=== PATIENT | female | born 1960 | race Caucasian/White ===

== ENCOUNTER 2020-04-13 19:56 | Inpatient (IN) | payer SELFPAY ==
[~2020-04-13] VITALS: Ht 165.1 cm; Wt 66.0 kg
[2020-04-13 20:32] LABS: BASOPHILS % 0.5 % (0.0-1.0); EOSINOPHILS # (AUTO) 0.1 (0.0-0.4); EOSINOPHILS % 1.1 % (0.0-6.0); HEMATOCRIT 26.2 % (34.2-44.1); HEMOGLOBIN 8.6 g/dL (12.0-16.0); LYMPHOCYTES # (AUTO) 0.8 (1.0-3.2); LYMPHOCYTES % 11.1 % (18.0-39.1); MEAN CORPUSCULAR HEMOGLOBIN 34.5 pg (28-32); MEAN CORPUSCULAR HGB CONC 32.8 g/dL (31-35); MEAN CORPUSCULAR VOLUME 105.2 fL (81-99); MONOCYTES # (AUTO) 0.5 (0.2-0.8); NEUTROPHILS % 79.8 % (38.7-80.0); PLATELET COUNT 476 x10e3/uL (140-360); RED BLOOD COUNT 2.49 x10e6/uL (3.6-5.1); RED CELL DISTRIBUTION WIDTH 15.4 % (11.7-14.4)
--- NOTE | 2020-04-13 20:34 | Emergency Department Note ---
History of Present Illnes History of Present Illness Chief Complaint: Extremity Trauma/Pain History of Present Illness This is a 59 year old female presents by way of EMS complaining of Long due to bilateral lower extremity weakness that started last night. Describes it from his when she stands up her legs give out and she just collapses to the floor. Patient does report having an episode where she "fainted 4 days ago and hit her head. At that time did not follow up or seek medical attention.. 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 MGR: IV, EKG Credit Compliance Officer Required: No Onset (how long ago): day(s) (1) Location: BILAREAL LOWER EXTREMITIES Quality: WEAKNESS Radiation: Reports non-radiation Severity: moderate Onset quality: sudden Duration (how long): day(s) (1) Timing of current episode: constant Progression: unchanged Chronicity: new Context: Reports trauma/injury (SYNCOPAL EPISODE 4 DAYS AGO AND HIT HER HEAD); Denies recent illness, Denies recent surgery Relieving factors: none Exacerbating factors: none Associated symptoms: Reports denies other symptoms Treatments prior to arrival: none Past Medical/Family History Physician Review I have reviewed the patient's past medical and family history. Any updates have been documented here. Past Medical History Recent Fever: No Clinical Suspicion of Infectio: No New/Unexplained Change in Ment: No Past Medical History: Hypertension, COPD Past Surgical History: Tubal Ligation Social History Smoking Cessation: Current every day smoker Alcohol Use: Occasional Any Illegal Drug Use: No Physically hurt or threatened: No Family History Family history of heart diseas: No Other family history HTN Review of Systems Review of Systems Constitutional: Reports as per HPI EENTM: Reports no symptoms Cardiovascular: Reports no symptoms Respiratory: Reports no symptoms Gastrointestinal: Reports no symptoms Genitourinary: Reports no symptoms Musculoskeletal: Reports as per HPI Integumentary: Reports no symptoms Neurological: Reports as per HPI Psychological: Reports no symptoms Endocrine: Reports no symptoms Hematological/Lymphatic: Reports no symptoms Physical Exam Related Data Allergies: Coded Allergies: No Known Allergies (Unverified , 04/13/20) Triage Vital Signs Vital Signs Date Time Temp Pulse Resp B/P (MAP) Pulse Ox O2 Delivery O2 Flow Rate FiO2 04/13/20 20:00 98.3 94 18 133/81 100 Room Air Vital signs reviewed: Yes Physical Exam CONSTITUTIONAL Constitutional: Present well-developed, Present well-nourished HENT Patient has contusion to left forehead and left infraorbital area likely from syncopal episode that occurred 4 days ago bruising does appear old. HENT: Present normocephalic, Present oropharynx clear/moist, Present nose normal HENT L/R: Present left TM normal, Present right TM normal, Present left ext ear normal, Present right ext ear normal EYES Eyes: Reports PERRL, Reports conjunctivae normal NECK Neck: Present ROM normal PULMONARY Pulmonary: Present effort normal, Present breath sounds normal CARDIOVASCULAR Cardiovascular: Present regular rhythm, Present heart sounds normal, Present capillary refill normal, Present normal rate GASTROINTESTINAL Abdominal: Present soft, Present nontender, Present bowel sounds normal GENITOURINARY Genitourinary: Present exam deferred SKIN Skin: Present warm, Present dry MUSCULOSKELETAL Patient with full range of motion to both lower extremities however does have weakness to bilateral extremities when asked to lift legs off the bed she lifts them up and is able to only keep them off the bed for 2 seconds before the fall back to the bed. Exam is the same for both lower extremities. Of note patient also appears to have gout of the left great toe. Pulses intact bilateral. Sensation intact bilateral. No tenderness to lower back hips or pelvis. Musculoskeletal: Present ROM normal NEUROLOGICAL Neurological: Present alert, Present oriented x 3, Present no gross motor or sensory deficits, Present weakness (BILATERAL LOWER EXTTREMITIES) PSYCHOLOGICAL Psychological: Present mood/affect normal, Present judgement normal Results Laboratory Laboratory Laboratory Tests Test 04/13/20 21:27 04/13/20 20:22 Urine Color Yellow (YELLOW) Urine Clarity Sl cloudy (CLEAR) Urine pH 6 (5 - 7) Urine Specific [place] 1.010 (1.010-1.025) Urine Protein Negative (NEGATIVE) Urine Glucose (UA) Negative (NEGATIVE) Urine Ketones Negative (NEGATIVE) Urine Blood Moderate (NEGATIVE) Urine Nitrite Negative (NEGATIVE) Urine Bilirubin Negative (NEGATIVE) Urine Urobilinogen 0.2 mg/dL (0.2 - 1) Urine Leukocyte Esterase Trace (NEGATIVE) Urine RBC 6-10 /HPF (0-5) Urine WBC 0-5 /HPF (0-5) Urine Epithelial Cells None /LPF (NONE) Urine Bacteria Many /HPF (NONE) White Blood Count 7.57 x10e3/uL (4.8-10.8) Red Blood Count 2.49 x10e6/uL (3.6-5.1) Hemoglobin 8.6 g/dL (12.0-16.0) Hematocrit 26.2 % (34.2-44.1) Mean Corpuscular Volume 105.2 fL (81-99) Mean Corpuscular Hemoglobin 34.5 pg (28-32) Mean Corpuscular Hemoglobin Concent 32.8 g/dL (31-35) Red Cell Distribution Width 15.4 % (11.7-14.4) Platelet Count 476 x10e3/uL (140-360) Neutrophils (%) (Auto) 79.8 % (38.7-80.0) Lymphocytes (%) (Auto) 11.1 % (18.0-39.1) Monocytes (%) (Auto) 7.0 % (4.4-11.3) Eosinophils (%) (Auto) 1.1 % (0.0-6.0) Basophils (%) (Auto) 0.5 % (0.0-1.0) Neutrophils # (Auto) 6.0 (2.1-6.9) Lymphocytes # (Auto) 0.8 (1.0-3.2) Monocytes # (Auto) 0.5 (0.2-0.8) Eosinophils # (Auto) 0.1 (0.0-0.4) Basophils # (Auto) 0.0 (0.0-0.1) Absolute Immature Granulocyte (auto 0.04 x10e3/uL (0-0.1) Sodium Level 140 mmol/L (136-145) Potassium Level 1.4 mmol/L (3.5-5.1) Chloride Level 93 mmol/L (98-107) Carbon Dioxide Level 19 mmol/L (22-29) Anion Gap 29.4 mmol/L (8-16) Blood Urea Nitrogen 7 mg/dL (7-26) Creatinine 0.83 mg/dL (0.57-1.11) Estimat Glomerular Filtration Rate > 60 ML/MIN (60-) BUN/Creatinine Ratio 8 (6-25) Glucose Level 105 mg/dL (74-118) Calcium Level 8.0 mg/dL (8.4-10.2) Total Bilirubin 0.3 mg/dL (0.2-1.2) Aspartate Amino Transf (AST/SGOT) 56 IU/L (5-34) Alanine Aminotransferase (ALT/SGPT) 26 IU/L (0-55) Alkaline Phosphatase 176 IU/L (40-150) Creatine Kinase 900 IU/L (29-168) Creatine Kinase MB 6.20 ng/mL (0-5.0) Troponin I 0.030 ng/mL (0-0.300) Total Protein 5.6 g/dL (6.5-8.1) Albumin 2.7 g/dL (3.5-5.0) Globulin 2.9 g/dL (2.3-3.5) Albumin/Globulin Ratio 0.9 (0.8-2.0) Lab results reviewed: Yes Imaging Imaging results reviewed: Yes Impressions Procedure: [id number] DX/CHEST SINGLE (PORTABLE) Exam Date: 04/13/20 Exam Time: 2029 REPORT STATUS: Signed EXAMINATION: CHEST SINGLE (PORTABLE) INDICATION: Weakness. COMPARISON: None FINDINGS: TUBES and LINES: None. LUNGS: Normal lung volumes. Lungs are clear. No consolidations. PLEURA: No pleural effusion or pneumothorax. HEART AND MEDIASTINUM: The cardiomediastinal silhouette is unremarkable. BONES AND SOFT TISSUES: No acute osseous lesion. Soft tissues are unremarkable. UPPER ABDOMEN: No free air under the diaphragm. IMPRESSION: No acute thoracic radiographic abnormality. Signed by: Giulia Taylor MD on 04/13/2020 9:27 PM Dictated By: GIULIA TAYLOR MD 26 Transcribed By: LUIS CARLOS on 04/13/202126 COPY TO: CONSUELO MUJICA MD~ Procedure: [id number] CT/CT CERVICAL SPINE WO Exam Date: 04/13/20 Exam Time: 2029 REPORT STATUS: Signed History: Status post fall, lower extremity weakness. Comparison studies: None Technique: Axial images were obtained through the cervical region.. Coronal and sagittal images reconstructed from the axial data. Dose modulation, iterative reconstruction, and/or weight based adjustment of the mA/kV was utilized to reduce the radiation dose to as low as reasonably achievable. Intravenous contrast: None Findings: Fractures: None. Soft tissue injuries: None. Atlantoaxial articulation: Intact. Alignment: Normal lordosis. No scoliosis. No subluxation. Cervicomedullary junction: No abnormalities. The foramen magnum is patent. Soft tissues: No abnormalities. Vertebrae: No fractures, infection or neoplasm. Degenerative changes: C3-C4: Mild degenerative disc disease. Mild left foraminal stenosis due to facet and uncovertebral arthrosis. C4-C5: Mild degenerative disc disease and endplate changes. Posterior disc osteophyte complex without significant canal stenosis. Mild left foraminal stenosis due to facet and uncovertebral arthrosis. C5-C6: Mild degenerative disc disease, with endplate sclerosis and subchondral cyst along the inferior endplate of C5. Posterior disc osteophyte complex without significant canal stenosis. Mild left foraminal stenosis due to facet and uncovertebral arthrosis. IMPRESSION: 1. No acute cervical spine fracture or dislocation. 2. Ligament, spinal cord and or vascular abnormalities cannot be excluded on the basis of this examination. 3. Mild cervical spondylosis as detailed above. Signed by: Dr. Ivet Hernandez M.D. on 04/13/2020 9:12 PM Dictated By: IVET HERNANDEZ MD 11 Transcribed By: LUIS CARLOS on 04/13/202111 COPY TO: CONSUELO MUJICA MD~ EXAMINATION: Head CT without contrast. HISTORY:Bilateral lower extremity weakness, fall 4 days ago. COMPARISON:None. TECHNIQUE: Multidetector axial images were obtained from the foramen magnum to the vertex without contrast. The images were reconstructed using brain and bone algorithms. Thin section brain images were reformatted into coronal and sagittal planes. Dose modulation, iterative reconstruction, and/or weight based adjustment of the mA/kV was utilized to reduce the radiation dose to as low as reasonably achievable. Intravenous contrast: None IMAGE QUALITY: Suboptimal evaluation due to motion related artifacts. FINDINGS: Skull/scalp: Mild left periorbital soft tissue edema. No acute depressed or displaced calvarial fracture. No lytic or blastic. lesions. No surgical changes. Parenchyma: Suboptimal evaluation due to motion artifacts, despite the limitation no gross acute hemorrhage, mass or acute major vascular territorial infarct. Arteries: No density suggestive of thrombosis. Mild atherosclerotic calcification in bilateral carotid siphon. Dural sinuses: No abnormal density suggestive of thrombosis. Ventricles: No hydrocephalus or displacement. Extra-axial spaces: No abnormal density. Brain volume: Mild generalized cerebral volume loss. Craniocervical junction: No mass, Chiari malformation, or basilar invagination. Sella: No mass. Paranasal/mastoid sinuses: Partial opacification of left mastoid air cells. IMPRESSION: 1. Mild left periorbital soft tissue edema. No acute calvarial fracture. 2. Suboptimal evaluation due to motion artifacts, despite the limitation no gross acute intracranial abnormality. 3. Mild generalized cerebral volume loss. Signed by: Dr. Ivet Hernandez M.D. on 04/13/2020 9:05 PM Dictated By: IVET HERNANDEZ MD 04 Transcribed By: LUIS CARLOS on 04/13/202104 COPY TO: CONSUELO MUJICA MD~ Procedures 12 Lead ECG Interpretation ECG Interpretation : ECG: ECG 1 Credit Compliance Officer: Interpreted by ED physician Date: Apr 13, 2020 Time: 21:01 Rhythm: sinus rhythm Rate: normal BPM: 89 QRS axis: normal ST segments normal: No (depression in leads, II,III, AVF, V3,V4,V5, V5,V6) T waves normal: No (non specific changes) Clinical Impression: abnormal ECG Assessment & Plan Medical Decision Making MDM Patient presents with weakness to bilateral reduction medicines last night which states she collapses when she tries to stand up because her legs give out. Patient had a fainting episode 4 days ago when she struck her head and did not seek medical attention. CT brain, CT cervical spine, chest x-ray, UA, CBC, CMP, cardiac enzymes ordered to eval for intracranial abnormality, fractures, UTI, pneumonia, electrolyte abnormality, leukocytosis, anemia PT FOUND TO HAVE SEVERE HYPOKALEMIA KCL 40 MEQ PO ORDERED K RIDER 20 MEQ TIMES THREE IV ORDERED PT ALSO WITH ELEVATED CK OF 900 MAY HAVE A COMPONENT OF RHABDOMYOLYSIS WELL FROM FALL ASSOCIATED WITH HER EPISODE OF SYNCOPE 4 DAYS AGO 2249 I HAVE BEEN TRYING TO GET A HOLD OF DR Duane NÚÑEZ(PT'S PCP/RADIO/TV TECHNICIAN SINCE 2215, HE HAS NOT RETURNED CALL. I SPOKE WITH DR OROSCO( PCP ON BACK UP CALL) HE STATES WILL ADMIT PT AND ASKE I PUT A CONSULT TO DR Duane NÚÑZE. DR OROSCO STATES HE WILL SPEAK WITH DR Duane NÚÑEZ IN AM IF HE DOES NOT CALL ME BACK TONIGHT Assessment & Plan Final Impression: (1) Hypokalemia (2) Weakness (3) Syncope (4) Contusion of head Depart Disposition: ADMITTED Last Vital Signs Date Time Temp Pulse Resp B/P (MAP) Pulse Ox O2 Delivery O2 Flow Rate FiO2 04/13/20 20:00 98.3 94 18 133/81 100 Room Air CONSUELO MUJICA MD Apr 13, 2020 20:34
[2020-04-13 20:52] LABS: ALANINE AMINOTRANSFERASE 26 IU/L (0-55); ALBUMIN 2.7 g/dL (3.5-5.0); ALBUMIN/GLOBULIN RATIO 0.9 (0.8-2.0); ALKALINE PHOSPHATASE 176 IU/L (40-150); ANION GAP 29.4 mmol/L (8-16); BLOOD UREA NITROGEN 7 mg/dL (7-26); BUN/CREATININE RATIO 8 (6-25); CARBON DIOXIDE 19 mmol/L (22-29); CHLORIDE 93 mmol/L (98-107); CREATINE KINASE 900 IU/L (29-168); CREATININE, SERUM 0.83 mg/dL (0.57-1.11); EST GLOMERULAR FILTRATION RATE > 60 ML/MIN (60-); GLUCOSE 105 mg/dL (74-118); SODIUM 140 mmol/L (136-145)
[2020-04-13 20:55] LABS: POTASSIUM 1.4 mmol/L (3.5-5.1)
[2020-04-13] MEDS ORDERED: POTASSIUM CHLORIDE 20MEQ/100ML 100 ML IV STA ×3 (20:55)
[2020-04-13] MEDS ORDERED: POTASSIUM CHLORIDE 20 MEQ TAB CR PO STA (20:55)
--- NOTE | 2020-04-13 21:09 | Diagnostic Imaging Report ---
EXAMINATION: Head CT without contrast. HISTORY:Bilateral lower extremity weakness, fall 4 days ago. COMPARISON:None. TECHNIQUE: Multidetector axial images were obtained from the foramen magnum to the vertex without contrast. The images were reconstructed using brain and bone algorithms. Thin section brain images were reformatted into coronal and sagittal planes. Dose modulation, iterative reconstruction, and/or weight based adjustment of the mA/kV was utilized to reduce the radiation dose to as low as reasonably achievable. Intravenous contrast: None IMAGE QUALITY: Suboptimal evaluation due to motion related artifacts. FINDINGS: Skull/scalp: Mild left periorbital soft tissue edema. No acute depressed or displaced calvarial fracture. No lytic or blastic. lesions. No surgical changes. Parenchyma: Suboptimal evaluation due to motion artifacts, despite the limitation no gross acute hemorrhage, mass or acute major vascular territorial infarct. Arteries: No density suggestive of thrombosis. Mild atherosclerotic calcification in bilateral carotid siphon. Dural sinuses: No abnormal density suggestive of thrombosis. Ventricles: No hydrocephalus or displacement. Extra-axial spaces: No abnormal density. Brain volume: Mild generalized cerebral volume loss. Craniocervical junction: No mass, Chiari malformation, or basilar invagination. Sella: No mass. Paranasal/mastoid sinuses: Partial opacification of left mastoid air cells. IMPRESSION: 1. Mild left periorbital soft tissue edema. No acute calvarial fracture. 2. Suboptimal evaluation due to motion artifacts, despite the limitation no gross acute intracranial abnormality. 3. Mild generalized cerebral volume loss. Signed by: Dr. Ivet Lawrence M.D. on 04/13/2020 9:05 PM
[2020-04-13] MEDS ORDERED: SODIUM CHLORIDE 0.9% 500ML 500 ML IV ONE (21:15)
--- NOTE | 2020-04-13 21:15 | Diagnostic Imaging Report ---
History: Status post fall, lower extremity weakness. Comparison studies: None Technique: Axial images were obtained through the cervical region.. Coronal and sagittal images reconstructed from the axial data. Dose modulation, iterative reconstruction, and/or weight based adjustment of the mA/kV was utilized to reduce the radiation dose to as low as reasonably achievable. Intravenous contrast: None Findings: Fractures: None. Soft tissue injuries: None. Atlantoaxial articulation: Intact. Alignment: Normal lordosis. No scoliosis. No subluxation. Cervicomedullary junction: No abnormalities. The foramen magnum is patent. Soft tissues: No abnormalities. Vertebrae: No fractures, infection or neoplasm. Degenerative changes: C3-C4: Mild degenerative disc disease. Mild left foraminal stenosis due to facet and uncovertebral arthrosis. C4-C5: Mild degenerative disc disease and endplate changes. Posterior disc osteophyte complex without significant canal stenosis. Mild left foraminal stenosis due to facet and uncovertebral arthrosis. C5-C6: Mild degenerative disc disease, with endplate sclerosis and subchondral cyst along the inferior endplate of C5. Posterior disc osteophyte complex without significant canal stenosis. Mild left foraminal stenosis due to facet and uncovertebral arthrosis. IMPRESSION: 1. No acute cervical spine fracture or dislocation. 2. Ligament, spinal cord and or vascular abnormalities cannot be excluded on the basis of this examination. 3. Mild cervical spondylosis as detailed above. Signed by: Dr. Ivet Lawrence M.D. on 04/13/2020 9:12 PM
[2020-04-13] MEDS ORDERED: SODIUM CHLORIDE 0.9% 1000ML 1,000 ML ONE (21:17)
--- NOTE | 2020-04-13 21:31 | Diagnostic Imaging Report ---
EXAMINATION: CHEST SINGLE (PORTABLE) INDICATION: Weakness. COMPARISON: None FINDINGS: TUBES and LINES: None. LUNGS: Normal lung volumes. Lungs are clear. No consolidations. PLEURA: No pleural effusion or pneumothorax. HEART AND MEDIASTINUM: The cardiomediastinal silhouette is unremarkable. BONES AND SOFT TISSUES: No acute osseous lesion. Soft tissues are unremarkable. UPPER ABDOMEN: No free air under the diaphragm. IMPRESSION: No acute thoracic radiographic abnormality. Signed by: Kierra León MD on 04/13/2020 9:27 PM
[2020-04-13 21:42] LABS: BILIRUBIN,URINE NEGATIVE (NEGATIVE); CLARITY,URINE SL CLOUDY (CLEAR); COLOR,URINE YELLOW (YELLOW); KETONES,URINE NEGATIVE (NEGATIVE); LEUKOCYTE ESTERASE ,URINE TRACE (NEGATIVE); NITRITE,URINE NEGATIVE (NEGATIVE); PROTEIN,URINE DIPSTICK NEGATIVE (NEGATIVE); URINE UROBILINOGEN 0.2 mg/dL (0.2 - 1)
[2020-04-13 21:56] LABS: BACTERIA,URINE MANY /HPF; WBC,URINE (MAN) 0-5 /HPF (0-5)
--- OUTSIDE RECORDS SUMMARY | 2020-04-13 22:06 | XMS REPORT | Continuity of Care Document ---
Author Author [facility] Organization [facility] Address [address] [place] [address] Phone Unavailable Care Team Providers Care Nurse Tech Name Role Phone Duane MUJICAphyjuventino Unavailable Payers Payer Name Policy Type Policy Number Effective Date Expiration Date S ource Problems This patient has no known problems. Allergies, Adverse Reactions, Alerts Allergy Name Allergy Type Status Severity Reaction(s) Onset Date Inacti ve Date Treating Clinician Comments Source No Known Allergies DA Active U 2018-07-12 00:00:00 [facility] No Known Allergies DA Active U 2014-02-21 00:00:00 [facility] Medications This patient has no known medications. Procedures This patient has no known procedures. Results Test Description Test Time Test Comments Results Result Comments Source CHEST SINGLE (PORTABLE) 2020-04-13 21:10:00 [facility] [address] [place], [place] [address] Patient Name: PHIL BAPTISTE MR #: [id number] : 1960 Age/Sex: 59/F Req #: [id number] Adm Physician: Ordered by: CONSUELO MUJICA MD Report #: [id number] Location: ER Room/Bed: Procedure: [id number] DX/CHEST SINGLE (PORTABLE) Exam Date: 04/13/20 Exam Time: 2029 REPORT STATUS: Signed EXAMINATION: CHEST SINGLE (PORTABLE) INDICATION: Weakness. COMPARISON: None FINDINGS: TUBES and LINES: None. LUNGS: Normal lung volumes. Lungs are clear. No consolidations. PLEURA: No pleural effusion or pneumothorax. HEART AND MEDIASTINUM: The cardiomediastinal silhouette is unremarkable. BONES AND SOFT TISSUES: No acute osseous lesion. Soft tissues are unremarkable. UPPER ABDOMEN: No free air under the diaphragm. IMPRESSION: No acute thoracic radiographic abnormality. Signed by: Giulia Taylor MD on 04/13/2020 9:27 PM Dictated By: GIULIA TAYLOR MD 26 Transcribed By: LUIS CARLOS on 04/13/202126 COPY TO: CONSUELO MUJICA MD CT CERVICAL SPINE WO 2020-04-13 21:06:00 [place] [address] Patient Name: PHIL BAPTISTE MR #: [id number] : 1960 Age/Sex: 59/F Req #: [id number] Adm Physician: Ordered by: CONSUELO MUJICA MD Report #: [id number] Location: ER Room/Bed: Procedure: [id number] CT/CT CERVICAL SPINE WO Exam Date: 04/13/20 Exam Time: 2029 REPORT STATUS: Signed History: Status post fall, lower extremity weakness. Comparison studies: None Technique: Axial images were obtained through the cervical region.. Coronal and sagittal images reconstructed from the axial data. Dose modulation, iterative reconstruction, and/or weight based adjustment of the mA/kV was utilized to reduce the radiation dose to as low as reasonably achievable. Intravenous contrast: None Findings: Fractures: None. Soft tissue injuries: None. Atlantoaxial articulation: Intact. Alignment: Normal lordosis. No scoliosis. No subluxation. Cervicomedullary junction: No abnormalities. The foramen magnum is patent. Soft tissues: No abnormalities. Vertebrae: No fractures, infection or neoplasm. Degenerative changes: C3-C4: Mild degenerative disc disease. Mild left foraminal stenosis due to facet and uncovertebral arthrosis. C4-C5: Mild degenerative disc disease and endplate changes. Posterior disc osteophyte complex without significant canal stenosis. Mild left foraminal stenosis due to facet and uncovertebral arthrosis. C5- C6: Mild degenerative disc disease, with endplate sclerosis and subchondral cyst along the inferior endplate of C5. Posterior disc osteophyte complex without significant canal stenosis. Mild left foraminal stenosis due to facet and uncovertebral arthrosis. IMPRESSION: 1. No acute cervical spine fracture or dislocation. 2. Ligament, spinal cord and or vascular abnormalities cannot be excluded on the basis of this examination. 3. Mild cervical spondylosis as detailed above. Signed by: Dr. Ivet Hernandez M.D. on 04/13/2020 9:12 PM Dictated By: IVET HERNANDEZ MD 11 Transcribed By: LUIS CARLOS on 04/13/202111 COPY TO: CONSUELO MUJICA MD CT BRAIN WO 2020-04-13 21:00:00 [place] [address] Patient Name: PHIL BAPTISTE MR #: [id number] : 1960 Age/Sex: 59/F Req #: [id number] Adm Physician: Ordered by: CONSUELO MUJICA MD Report #: [id number] Location: ER Room/Bed: Procedure: [id number] CT/CT BRAIN WO Exam Date: 04/13/20 Exam Time: 2029 REPORT STATUS: Signed EXAMINATION: Head CT without contrast. HISTORY:Bilateral lower extremity weakness, fall 4 days ago. COMPARISON:None. TECHNIQUE: Multidetector axial images were obtained from the foramen magnum to the vertex without contrast. The images were reconstructed using brain and bone algorithms. Thin section brain images were reformatted into coronal and sagittal planes. Dose modulation, iterative reconstruction, and/or weight based adjustment of the mA/kV was utilized to reduce the radiation dose to as low as reasonably achievable. Intravenous contrast: None IMAGE QUALITY: Suboptimal evaluation due to motion related artifacts. FINDINGS: Skull/scalp: Mild left periorbital soft tissue edema. No acute depressed or displaced calvarial fracture. No lytic or blastic. lesions. No surgical changes. Parenchyma: Suboptimal evaluation due to motion artifacts, despite the limitation no gross acute hemorrhage, mass or acute major vascular territorial infarct. Arteries: No density suggestive of thrombosis. Mild atherosclerotic calcification in bilateral carotid siphon. Dural sinuses: No abnormal density suggestive of thrombosis. Ventricles: No hydrocephalus or displacement. Extra-axial spaces: No abnormal density. Brain volume: Mild generalized cerebral volume loss. Craniocervical junction: No mass, Chiari malformation, or basilar invagination. Sella: No mass. Paranasal/mastoid sinuses: Partial opacification of left mastoid air cells. IMPRESSION: 1. Mild left periorbital soft tissue edema. No acute calvarial fracture. 2. Suboptimal evaluation due to motion artifacts, despite the limitation no gross acute intracranial abnormality. 3. Mild generalized cerebral volume loss. Signed by: Dr. Ivet Hernandez M.D. on 04/13/2020 9:05 PM Dictated By: IVET HERNANDEZ MD 04 Transcribed By: LUIS CARLOS on 04/13/202104 COPY TO: CONSUELO MUJICA MD
[2020-04-13] MEDS ORDERED: LORAZEPAM INJ 2 MG/ML VIAL IV ONE ×2 (22:15)
[2020-04-13] MEDS ORDERED: ONDANSETRON HCL INJ 2MG/ML 2ML 2 MG/ML VIAL IV PRN (23:00)
--- OUTSIDE RECORDS SUMMARY | 2020-04-13 23:11 | XMS REPORT | Continuity of Care Document ---
Author Author [facility] Organization [facility] Address [address] [place] [address] Phone Unavailable Care Team Providers Care Animal Tech Name Role Phone Duane MUJICAphyjuventino Unavailable Payers Payer Name Policy Type Policy Number Effective Date Expiration Date S ource Problems This patient has no known problems. Allergies, Adverse Reactions, Alerts Allergy Name Allergy Type Status Severity Reaction(s) Onset Date Inacti ve Date Treating Clinician Comments Source No Known Allergies DA Active U 2018-07-12 00:00:00 [facility] No Known Allergies DA Active U 2014-02-21 00:00:00 [facility] Medications This patient has no known medications. Procedures This patient has no known procedures. Results Test Description Test Time Test Comments Results Result Comments Source CHEST SINGLE (PORTABLE) 2020-04-13 21:10:00 [facility] [address], [place] [address] Patient Name: PHIL BAPTISTE MR #: [id number] : 1960 Age/Sex: 59/F Req #: [id number] Adm Physician: Ordered by: CONSUELO MUJICA MD Report #: [id number] Location: ER Room/Bed: Procedure: [id number] DX/CHEST SINGLE (PORTABLE) Exam Date: 04/13/20 Exam [...] MD CT CERVICAL SPINE WO 2020-04-13 21:06:00 [place] [address] Patient Name: PHIL BAPTISTE MR #: [id number] : 1960 Age/Sex: 59/F Req #: [id number] Adm Physician: Ordered by: CONSUELO MUJICA MD Report #: [id number] Location: ER Room/Bed: Procedure: [id number] CT/CT CERVICAL SPINE WO Exam Date: 04/13/20 [...] MUJICA MD CT BRAIN WO 2020-04-13 21:00:00 [place] [address] Patient Name: PHIL BAPTISTE MR #: [id number] : 1960 Age/Sex: 59/F Req #: [id number] Adm Physician: Ordered by: CONSUELO MUJICA MD Report #: [id number] Location: ER Room/Bed: Procedure: [id number] CT/CT BRAIN WO Exam Date: 04/13/20 Exam [...]
--- NOTE | 2020-04-13 23:13 | NUR ---
Received report from Case (ER nurse) about patient's information. Case also mentioned that ER doctor (Dr. Arias) has just spoken with Dr. Laquita Newman about the consult (re: COPD) to see patient in AM (04/14/20).
[2020-04-13] MEDS ORDERED: TEMAZEPAM 7.5 MG CAP PO PRN (23:30)
[2020-04-13] MEDS ORDERED: POLYETHYLENE GLYCOL 3350 17 GM PACK PO PRN (23:30)
[2020-04-14] VITALS (11 sets, daily range): BP systolic 129–155; BP diastolic 75–99
--- NOTE | 2020-04-14 00:30 | NUR ---
Patient arrived to the unit via stretcher as a new admit from ER to Rm 288. Patient alert and oriented x3. Admitted with contusion of head, hypokalemia, syncope and weakness. Patient admits feeling weakness on both legs especially on the left leg. Swelling on medial bone of left big toe (Navicular bone) noted and tender to touch. Bruises on left cheek of face and bruise under left eye. Healed laceration on forehead noted. Patient on bedrest. Pt to be receiving total of 3 runs of 20meq KCL IV as ordered. Hemant Fu on the floor aware pt has arrived.
[2020-04-14] MEDS: POTASSIUM CHLORIDE 20MEQ/100ML 100 ML IV SCH ×2 (01:30→04:30)
[2020-04-14] MEDS ORDERED: POTASSIUM CHLORIDE IV ONE ×2 (02:30→06:00)
[2020-04-14] MEDS ORDERED: DEXTROSE 5% IV ONE ×2 (02:30→06:00)
[2020-04-14] MEDS ORDERED: SODIUM BICARBONATE 8.4% IV ONE ×2 (02:30→06:00)
[2020-04-14] MEDS ORDERED: LISINOPRIL-HCT1 EACH PO (02:32)
[2020-04-14] MEDS ORDERED: SYMBICORT 80-10.2 GM INH (02:32)
[2020-04-14] MEDS ORDERED: ALBUTEROL0.63 MG/3 INH (02:32)
--- NOTE | 2020-04-14 02:45 | NUR ---
Verified with Hemant Fu ([employer]ION[employer]) about order for Orthostatic V/S and that patient unable to stand up at this time. Hemant mentioned to do orthostatic v/s q6h x3 only after she gets a chance to stand up with physical therapist today. Will pass information to incoming dayshift RN.
[2020-04-14] MEDS ORDERED: ALBUTEROL SULF 0.083% NEB SOLN 3 ML NEB INH PRN (03:15)
--- NOTE | 2020-04-14 06:55 | NUR ---
SBAR BEDSIDE REPORT RECEIVED FROM ZEHRA CASTRO, PM SHIFT. PT RECEIVED LYING IN BED IN NO ACUTE DISTRESS. PT IS ALERT/ORIENTED X3 AND IS ABLE TO MAKE NEEDS KNOWN. PT DENIES ANY NEEDS AT THIS TIME. PT WAS EDUCATED ON FALL RISK PRECAUTIONS AND USE OF CALL LIGHT. CALL LIGHT AND BELONGINGS NEARBY. WILL CONTINUE TO MONITOR.
[2020-04-14 07:59] LABS: BASOPHILS % 0.5 % (0.0-1.0); EOSINOPHILS # (AUTO) 0.1 (0.0-0.4); EOSINOPHILS % 1.3 % (0.0-6.0); HEMATOCRIT 24.3 % (34.2-44.1); HEMOGLOBIN 7.9 g/dL (12.0-16.0); LYMPHOCYTES # (AUTO) 0.8 (1.0-3.2); LYMPHOCYTES % 9.6 % (18.0-39.1); MEAN CORPUSCULAR HEMOGLOBIN 34.2 pg (28-32); MEAN CORPUSCULAR HGB CONC 32.5 g/dL (31-35); MEAN CORPUSCULAR VOLUME 105.2 fL (81-99); MONOCYTES # (AUTO) 0.6 (0.2-0.8); MONOCYTES % 7.5 % (4.4-11.3); NEUTROPHILS # (AUTO) 6.8 (2.1-6.9); NEUTROPHILS % 80.6 % (38.7-80.0); PLATELET COUNT 454 x10e3/uL (140-360); RED BLOOD COUNT 2.31 x10e6/uL (3.6-5.1); RED CELL DISTRIBUTION WIDTH 15.7 % (11.7-14.4)
[2020-04-14 08:21] LABS: ALANINE AMINOTRANSFERASE 27 IU/L (0-55); ALBUMIN 2.4 g/dL (3.5-5.0); ALBUMIN/GLOBULIN RATIO 0.9 (0.8-2.0); ALKALINE PHOSPHATASE 175 IU/L (40-150); ANION GAP 20.9 mmol/L (8-16); BLOOD UREA NITROGEN 5 mg/dL (7-26); BUN/CREATININE RATIO 7 (6-25); CALCIUM 7.3 mg/dL (8.4-10.2); CARBON DIOXIDE 27 mmol/L (22-29); CHLORIDE 96 mmol/L (98-107); CREATININE, SERUM 0.75 mg/dL (0.57-1.11); EST GLOMERULAR FILTRATION RATE > 60 ML/MIN (60-); GLUCOSE 121 mg/dL (74-118); SODIUM 142 mmol/L (136-145)
[2020-04-14 08:23] LABS: CHOL/HDL RATIO 2.6 (3.0-3.6); MAGNESIUM 1.8 MG/DL (1.3-2.1); PHOSPHORUS 2.6 MG/DL (2.3-4.7)
[2020-04-14 08:30] LABS: POTASSIUM 1.9 mmol/L (3.5-5.1)
--- NOTE | 2020-04-14 08:33 | NUR ---
CRITICAL POTASSIUM = 1.9 RECEIVED FROM LAB. CALL PLACED TO DR. OROSCO. LEFT FOR RETURN CALL
[2020-04-14 08:43] LABS: THYROID STIMULATING HORMONE 0.206 uIU/mL (0.350-4.940)
[2020-04-14] MEDS: DOCUSATE SODIUM 100 MG CAP PO SCH ×2 (09:16→17:00)
[2020-04-14] MEDS: FAMOTIDINE 20 MG/2 ML VIAL IV SCH ×3 (09:17→17:30)
[2020-04-14] MEDS ORDERED: POTASSIUM CHLORIDE 20MEQ/100ML 200 ML IV ONE (09:30)
[2020-04-14] MEDS ORDERED: POTASSIUM CHLORIDE 20 MEQ TAB CR PO SCH ×2 (09:30→12:30)
[2020-04-14 10:24] LABS: FERRITIN 237.58 ng/mL (4.63-204.00)
[2020-04-14 10:29] LABS: PLATELET ESTIMATE SLIGHTLY INCREASED; PLATELET MORPHOLOGY COMMENT FEW EDTA CLUMPING; RBC MORPHOLOGY COMMENT NORMAL
[2020-04-14] MEDS: ALBUTEROL/IPRATROPIUM 3 ML NEB NEB SCH ×5 (12:51→23:00)
[2020-04-14] MEDS: BUDESONIDE/FORMOTEROL FUMARATE 80/4.5MCG 6.9 GM INH AEROSOL IH SCH ×2 (12:53→20:30)
[2020-04-14] MEDS: KCL 40MEQ/0.9% SOD CHL 1,000 ML IV ONE ×2 (13:00→15:39)
--- NOTE | 2020-04-14 13:39 | Consultation ---
DATE OF CONSULTATION: CHIEF COMPLAINT: Weakness in the legs and diarrhea for three months. HISTORY OF PRESENT ILLNESS: The patient is a 59-year-old woman. She has a history of COPD and uses Symbicort as well as rescue inhalers at home. She also takes lisinopril with hydrochlorothiazide for blood pressure. She reports diarrhea intermittently for the past three months. Apparently, she was also taking some [id number] remedies. Yesterday, she noticed progressive paresthesias and tingling in her lower extremities. She then had difficulty moving her right leg and her left leg. She came to the ER and was found to have a potassium of 1.4. She has received 60 mEq of IV potassium so far along with 80 mEq of p.o. Her last potassium was 1.9. She has reported some symptomatic improvement. PAST SURGICAL HISTORY: Noncontributory. PAST MEDICAL HISTORY: 1. COPD. 2. History of pneumonia in June of 2019. 3. Hypertension. 4. No prior kidney problems. SOCIAL HISTORY: The patient was a prior smoker. She is not an active drinker. ALLERGIES: NO KNOWN DRUG ALLERGIES. FAMILY HISTORY: Family history is noncontributory. REVIEW OF SYSTEMS: There is no headache or fever. She has no neck pain. She has trace has dyspnea on exertion, which is her baseline. She has no chest pain. She has no abdominal pain. She has no nausea or vomiting. She does have diarrhea intermittently for three months. She complains of weakness in both lower extremities that is improving. She also has pain in her left foot. PHYSICAL EXAMINATION: VITAL SIGNS: The blood pressure is 143/80 and the pulse is 91. Saturation is 96%. HEENT: No facial swelling or erythema. LYMPHATIC: No submandibular, cervical, or supraclavicular adenopathy. CARDIAC: Regular rate and rhythm with normal S1, S2. LUNGS: Auscultation of lungs shows clear breath sounds bilaterally. There is no wheezing. ABDOMEN: Soft, nontender. There is no rebound or guarding. EXTREMITIES: No leg edema. There is tenderness over the 1st metatarsophalangeal joint on the left foot. LABORATORY DATA: Potassium is 1.9 with a sodium of 142. The BUN to creatinine ratio is 7 to 0.75 and the carbon dioxide is 27, although the anion gap remains elevated. Her CPK is 1539. Her total protein is 5 and her albumin is 2.4. Her white blood cell count is 8.4, hemoglobin is 7.9 with an MCV of 105. The platelet count is 454 and her reticulocyte count is 3.4%. Her free T4 is 0.64. IMPRESSION: 1. Profound hypokalemia with paralysis. 2. Severe mixed metabolic and anion gap and non-anion gap acidosis. 3. Profound diarrhea with dehydration. 4. Tenderness over the 1st metatarsophalangeal joint, suggestive of possible gout. 5. Chronic obstructive pulmonary disease. 6. Macrocytic anemia. PLAN: 1. The patient is receiving IV potassium. 2. Nephrology consultation. 3. GI consultation regarding chronic diarrhea. 4. Hematology evaluation for macrocytic anemia. 5. TSH and serum cortisol. 6. Repeat electrolytes. Jack Newman MD [facility]/MODL /[id number]
[2020-04-14 13:52] LABS: ALANINE AMINOTRANSFERASE 28 IU/L (0-55); ALBUMIN 2.3 g/dL (3.5-5.0); ALBUMIN/GLOBULIN RATIO 0.9 (0.8-2.0); ALKALINE PHOSPHATASE 176 IU/L (40-150); ANION GAP 20.2 mmol/L (8-16); BLOOD UREA NITROGEN 5 mg/dL (7-26); BUN/CREATININE RATIO 7 (6-25); CALCIUM 7.1 mg/dL (8.4-10.2); CARBON DIOXIDE 27 mmol/L (22-29); CHLORIDE 95 mmol/L (98-107); CREATININE, SERUM 0.73 mg/dL (0.57-1.11); EST GLOMERULAR FILTRATION RATE > 60 ML/MIN (60-); GLUCOSE 152 mg/dL (74-118); SODIUM 140 mmol/L (136-145)
[2020-04-14] MEDS: THIAMINE HCL 100 MG TAB PO SCH (13:54)
[2020-04-14] MEDS: FOLIC ACID 1 MG TAB PO SCH (13:54)
[2020-04-14 13:55] LABS: POTASSIUM 2.2 mmol/L (3.5-5.1)
[2020-04-14 14:07] LABS: MAGNESIUM 1.7 MG/DL (1.3-2.1)
[2020-04-14] MEDS ORDERED: MAGNESIUM SULFATE 2GM/50ML 50 ML IV ONE (15:00)
[2020-04-14] MEDS ORDERED: METHYLPREDNISOLONE SOD SUCC 125 MG/2ML VIAL IV ONE (15:30)
[2020-04-14] MEDS ORDERED: POTASSIUM CHLORIDE 20 MEQ TAB CR PO ONE (15:30)
[2020-04-14] MEDS ORDERED: CALCIUM GLUCONATE 10% INJ 4.65 MEQ in SODIUM CHLORIDE 0.9% 50ML 50 ML IV ONE (16:00)
[2020-04-14] MEDS ORDERED: POTASSIUM PHOSPHATE 30 MM in SODIUM CHLORIDE 0.9% 250ML 250 ML IV ONE (17:00)
--- NOTE | 2020-04-14 18:36 | Consultation ---
DATE OF CONSULTATION: 04/14/2020 HISTORY OF PRESENT ILLNESS: A 59-year-old female, who apparently has had several weeks of nausea, vomiting, and diarrhea, predominantly diarrhea, not as much nausea, recently fell about a week ago and has bruised her left cheek. Renal has been consulted for severe electrolyte abnormalities, as labs initially showed a potassium level of 1.4. This was yesterday with a sodium of 140, bicarb 19, creatinine 0.8, calcium level was 8 there, albumin of 2.7, CK was 900. Troponin I was 0.030. Repeat, the patient was given potassium riders, started on IV bicarbonate. Most recent labs; sodium 140, potassium 2.2, bicarbonate 27, BUN 5, creatinine 0.7, has a glucose of 152, calcium 7.1, ionized calcium 1, phosphorus 2, magnesium 1.7, has a CK of 2117. TSH of 0.166. Urinalysis shows specific gravity of 1.010, pH 6. Urine microscopy; rbc 6-10, wbc's 0-5. The patient currently awake, alert. The patient's nurse is with me by her bedside. She has very labile mood. She is crying. She says she is afraid, as she is about to get a PICC line. She admits she has a history of depression, never been suicidal, never seen a psychiatrist. She has never seen anybody for her diarrhea. She sees Dr. Newman for her COPD. She denies any other medical issues. Denied any abdominal surgeries. Denies any CVAs. Denies any kidney stone disease. The patient lives with her , daughter and grand kids. Apparently, drinks 6 Fireballs every night. She has had previous falls before. Admits to some shakes sometimes when she does not drink, not always according to her. She also takes about 8 Advils a day for headache. She also takes melatonin. Other medications include lisinopril and HCTZ. She is also complaining of pain in her left toe. ALLERGIES: THE PATIENT OTHERWISE, SHE HAS NO APPARENT DRUG ALLERGIES. CURRENT MEDICATIONS: The patient was given potassium replacement, bicarb has been stopped. Currently has normal saline with KCl 40 mEq/L at 100 mL an hour. She is also on Colace once a day, Pepcid 20 mg b.i.d., folic acid 1 mg daily, thiamine 50 mg daily, albuterol/Atrovent nebulizers. PHYSICAL EXAMINATION: GENERAL: Awake, alert, and oriented x3, sitting up, in no apparent distress. VITAL SIGNS: Blood pressure 143/80, pulse rate 91, afebrile, and oxygen saturation 95% on room air. HEAD AND NECK: Cornea clear. Oral mucosa moist. Slight bruise noted, right cheek. No swelling. No tenderness. Oral mucosa moist. Neck veins flat. LUNGS: Occasional end-expiratory rhonchi bilaterally. No rales. HEART: S1 and S2 audible. ABDOMEN: Soft and nontender. EXTREMITIES: Lower extremity shows tenderness and redness noted, left hallux and 1st metacarpal bone area. Some redness noted and some swelling noted over the dorsum of the foot as well. IMPRESSION: Underlying severe electrolyte abnormality including hypokalemia, possible rhabdo, low ionized calcium, hypophosphatemia, hypomagnesemia. LFTs noted, mildly elevated AST and alkaline phosphatase of 94 and 176 respectively. PLAN: On placing phosphate and potassium with potassium phosphate, p.o. potassium now, magnesium 2 g. I will give Solu-Medrol 80 mg IV x1. We will give an amp of calcium gluconate IV x1 for her hypocalcemia. Urine specific gravity 1.010, quite consistent with beer potomania with profound electrolyte imbalance, hypokalemia, hypomagnesemia, hypophosphatemia, and hypoalbuminemia. She is probably not eating enough solute at home. Nevertheless, plan on repeating serial potassium levels and replacing potassium as we go along. We will obtain urine potassium level as well. Please see orders. MD [facility]/MODL /[id number]
--- NOTE | 2020-04-14 19:09 | Diagnostic Imaging Report ---
X-ray 3 views of the left foot. HISTORY: Pain. COMPARISON: None available. FINDINGS: Bones: No acute displaced fracture. Osseous alignment is within normal limits. Joints: The joint spaces are well-maintained. Soft tissues: The soft tissues appear unremarkable. IMPRESSION: No acute radiographic abnormality. Signed by: Kierra León MD on 04/14/2020 7:05 PM
--- NOTE | 2020-04-14 21:33 | Diagnostic Imaging Report ---
EXAMINATION: CHEST XRAY LINE PLACEMENT INDICATION: status post PICC line placement. COMPARISON: None FINDINGS: TUBES and LINES: There is a right PICC which terminates at the distal SVC. LUNGS: Normal lung volumes. Lungs are clear. No consolidations. Bibasilar atelectasis. PLEURA: No pleural effusion or pneumothorax. HEART AND MEDIASTINUM: The cardiomediastinal silhouette is unremarkable. BONES AND SOFT TISSUES: No acute osseous lesion. Soft tissues are unremarkable. UPPER ABDOMEN: No free air under the diaphragm. IMPRESSION: 1. Right PICC which terminates at the distal SVC. 2. No focal consolidation, pleural effusion or pneumothorax. Signed by: Kierra León MD on 04/14/2020 9:30 PM
[2020-04-14] MEDS: LORAZEPAM INJ 2 MG/ML VIAL IV PRN (21:38)
--- NOTE | 2020-04-14 22:01 | History and Physical ---
PRIMARY CARE PHYSICIAN: Jack Newman M.D. CONSULTING PHYSICIANS: 1. Denise Vail M.D., Nephrology. 2. Kristan Lucero M.D., Hematology-Oncology. 3. Jack Newman M.D., Pulmonology. 4. Domenico Meyer M.D., Gastroenterology. CHIEF COMPLAINT: Unable to walk, recently passed out. HISTORY OF PRESENT ILLNESS: The patient is a 59-year-old female admitted to the Emergency Department via [facility] with complaint of inability to ambulate with onset being 04/13. She has left great toe swelling/discomfort. She is unable to raise her legs for more than 5 seconds. She reports syncopal episode 4-5 days ago, for which she did not seek medical attention. She has a hematoma at the left cheek of the face and admits to hitting her head when feigning on 04/09. The patient states that her weakness started on Friday. PAST MEDICAL HISTORY: Hypertension, COPD, falls, pneumonia in 2017, anxiety, and probable alcoholism. PAST SURGICAL HISTORY: Bilateral tubal ligation. FAMILY HISTORY: Noncontributory. SOCIAL HISTORY: The patient is a current smoker. She states she does not smoke often. Admits to smoking three pack per week for the last 43 years. She drinks six cinnamon whiskeys every night. She denies any previous illicit drug use. She lives with her , daughter, and two granddaughters. She states that one granddaughter is transitioning to be male. 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 ALLERGIES: NO KNOWN ALLERGIES. REVIEW OF SYSTEMS: CONSTITUTIONAL: Denies any significant weight gain or weight loss over the past 6 months. Denies fever or chills or sick contacts. A 14-point review of systems was completed and the patient denies any problems with eyes, genitourinary, integumentary, cardiovascular, endocrine, allergic, immunological, hematologic, or lymphatic. She complains of having sore throat and trace amount of dyspnea on exertion, which is normal for her at baseline. She admits to a history of anxiety when I asked about psychiatric history. Per the RN, the patient had six diarrhea stools today and has had diarrhea off and on for the past 3 months. Musculoskeletal, severe weakness. Neurologic, dizziness with drinking. OBJECTIVE: VITAL SIGNS: Temperature 98.5, pulse 103, blood pressure 129/81, respirations 18, and oxygen saturation 98%. Height 5 feet 5 inches. Weight 145 pounds. BMI 24.12. GENERAL: Supine, in no acute distress, generalized weakness. LUNGS: Clear to auscultation. RESPIRATORY: Pattern even and unlabored. HEENT: EOMI. NECK: Supple. No thyromegaly, lymphadenopathy, or JVD. CARDIOVASCULAR: Regular rate and rhythm, without murmur. Last night, she had normal saline infusing at 50 mL an hour, this morning shows normal saline with 40 mEq potassium chloride infusing at 100 mL an hour. ABDOMEN: Bowel sounds positive. Soft, nontender. No obvious distention. No guarding. EXTREMITIES: Without pitting edema. No clubbing, cyanosis, or marked swelling of one leg in comparison to the other left large toe tenderness noted at the first metatarsophalangeal joint. NEUROLOGIC: GCS 15, nonfocal. LABORATORY DATA: Today, WBCs are 8.44, RBCs 2.31, hemoglobin 7.9, hematocrit 24.3, and platelets 454. Sodium 140, potassium 2.2, chloride 95, CO2 of 27, anion gap 20.2, BUN 5, creatinine 0.73, estimated GFR greater than 60, glucose 152, calcium 7.1, phosphorus 2.0, and magnesium 1.7. Ionized calcium 1.0. Uric acid 10.8. Total bilirubin 0.5, AST 94, ALT 28, alkaline phosphatase 176, total protein 4.8, albumin 2.3. TSH 0.166. On admission, potassium level 1.4, then subsequently 1.9. On 04/13, urinalysis showed specific gravity 1.01, pH 6, urobilinogen 0.2, trace of leukocyte esterase, 6-8 rbc's, 0-5 wbc's. Fecal occult blood test positive. Coronavirus PCR collected on 04/13 remains pending. DIAGNOSTIC STUDIES: CT of the brain showed mild left periorbital soft tissue edema, no acute calvarial fracture. Suboptimal evaluation due to motion artifacts despite the limitation. No gross acute intracranial abnormality. Mild generalized central volume loss. CT of the cervical spine showed no acute cervical spine fracture, dislocation, and ligament, spinal cord and/or vascular abnormalities cannot be excluded on the basis of this exam. Mild central spondylosis as detailed above. Chest x-ray done on 04/13/2020, showed no acute thoracic radiographic abnormality. Final results of bilateral carotid Doppler ultrasound study are pending. ASSESSMENT AND PLAN: 1. Severe hypokalemia with paralysis (admit potassium level 1.4). Potassium was repleted in the Emergency Department physician via 60 mEq of potassium chloride IV. Her admission potassium level was 1.4. After the 60 mEq potassium IV, she received 80 mEq p.o. Her potassium level yesterday was 1.9, today 2.2. 2. Severe weakness in both legs, ambulatory dysfunction, history of falls. Continue medication for her foot pain. The patient is on D5W with three amps of sodium bicarbonate. 3. Syncope on 04/09 with fall, contusion of the head and rhabdomyolysis, left foot pain. Monitor orthostatic vital signs as the patient tolerates. Immediately upon admission, the patient was not able to stand and walk. Monitor cardiac enzymes, fluid status, and laboratory data. 4. Probable urinary tract infection, POA, with history of dehydration. 5. Anemia, anemia workup essentially negative, deferred to Hematology-Oncology. 6. Hypotension with history of hypertension. Resume home antihypertensives, metoprolol tartrate 2.5 mg IV q.6 hours. 7. Alcoholism with transaminitis. The patient admits to drinking a considerable amount. We will add Ativan p.r.n. for possible delirium tremens signs and symptoms. 8. Chronic obstructive pulmonary disease without acute exacerbation. 9. Thrombocytosis, platelets 476, defer to Hematology-Oncology. BILLING CODE: [id number]. TIME SPENT: Thirty-five minutes. Dictated by Hemant Fu NP Adan De Santiago MD [facility]/MODL /[id number]
[2020-04-15] VITALS (8 sets, daily range): BP systolic 130–152; BP diastolic 72–108
[2020-04-15] MEDS ORDERED: CYANOCOBALAMIN INJ 1,000 MCG/ML VIAL IM ONE (01:15)
[2020-04-15] MEDS: BUDESONIDE/FORMOTEROL FUMARATE 80/4.5MCG 6.9 GM INH AEROSOL IH SCH ×3 (01:55→19:40)
[2020-04-15] MEDS: ALBUTEROL/IPRATROPIUM 3 ML NEB NEB SCH ×5 (03:00→19:40)
[2020-04-15 06:40] LABS: BASOPHILS % 0.4 % (0.0-1.0); EOSINOPHILS # (AUTO) 0.1 (0.0-0.4); HEMOGLOBIN 7.3 g/dL (12.0-16.0); LYMPHOCYTES % 14.5 % (18.0-39.1); MEAN CORPUSCULAR HEMOGLOBIN 34.8 pg (28-32); MEAN CORPUSCULAR HGB CONC 32.7 g/dL (31-35); MEAN CORPUSCULAR VOLUME 106.2 fL (81-99); MONOCYTES # (AUTO) 0.4 (0.2-0.8); MONOCYTES % 5.2 % (4.4-11.3); NEUTROPHILS # (AUTO) 5.6 (2.1-6.9); NEUTROPHILS % 78.1 % (38.7-80.0); PLATELET COUNT 411 x10e3/uL (140-360); RED CELL DISTRIBUTION WIDTH 15.7 % (11.7-14.4)
[2020-04-15 06:43] LABS: HEMATOCRIT 22.3 % (34.2-44.1)
[2020-04-15 06:51] LABS: MAGNESIUM 2.1 MG/DL (1.3-2.1); PHOSPHORUS 3.4 MG/DL (2.3-4.7)
[2020-04-15 06:54] LABS: ALANINE AMINOTRANSFERASE 27 IU/L (0-55); ALBUMIN 2.2 g/dL (3.5-5.0); ALBUMIN/GLOBULIN RATIO 0.9 (0.8-2.0); ALKALINE PHOSPHATASE 160 IU/L (40-150); ANION GAP 14.3 mmol/L (8-16); BLOOD UREA NITROGEN < 5 mg/dL (7-26); CALCIUM 7.1 mg/dL (8.4-10.2); CARBON DIOXIDE 30 mmol/L (22-29); CHLORIDE 100 mmol/L (98-107); CREATINE KINASE 2827 IU/L (29-168); CREATININE, SERUM 0.57 mg/dL (0.57-1.11); EST GLOMERULAR FILTRATION RATE > 60 ML/MIN (60-); GLUCOSE 97 mg/dL (74-118); SODIUM 142 mmol/L (136-145)
[2020-04-15 06:57] LABS: BUN/CREATININE RATIO 9 (6-25); POTASSIUM 2.3 mmol/L (3.5-5.1)
--- NOTE | 2020-04-15 07:10 | NUR ---
Abnormal labs received from labs day shift nurse is aware.
--- NOTE | 2020-04-15 07:30 | NUR ---
call to Dr. Vail, for critical lab k+ 2.3, spoke with Virgie.
[2020-04-15] MEDS ORDERED: POTASSIUM CHLORIDE 20 MEQ TAB CR PO STA (07:36)
[2020-04-15 07:40] LABS: FREE THYROXINE INDEX 1.1203 (1.4-3.8); THYROID STIMULATING HORMONE 0.374 uIU/mL (0.350-4.940)
--- NOTE | 2020-04-15 07:40 | NUR ---
Dr. Barksdale, called in for Dr sigala orders given.
[2020-04-15] MEDS ORDERED: POTASSIUM CHLORIDE 20MEQ/100ML 300 ML IV ONE (07:45)
--- NOTE | 2020-04-15 08:10 | NUR ---
pt given 40 meq of PO Potassium, tolerated well.
--- NOTE | 2020-04-15 08:15 | NUR ---
iv potassium started, pt to have total of 60 Meq, iv, receiving though picc line.
--- NOTE | 2020-04-15 08:30 | NUR ---
urine sent to lab.
[2020-04-15] MEDS ORDERED: FOLIC ACID 1 MG TAB PO SCH (09:00)
[2020-04-15] MEDS: DOCUSATE SODIUM 100 MG CAP PO SCH ×2 (09:16→17:18)
[2020-04-15] MEDS: FAMOTIDINE 20 MG/2 ML VIAL IV SCH ×2 (09:16→17:18)
[2020-04-15] MEDS: FOLIC ACID 1 MG TAB PO SCH (09:16)
[2020-04-15] MEDS: THIAMINE HCL 100 MG TAB PO SCH (09:16)
[2020-04-15] MEDS: CYANOCOBALAMIN INJ 1,000 MCG/ML VIAL IM SCH (09:17)
[2020-04-15 09:31] LABS: CLARITY,URINE SL CLOUDY (CLEAR); COLOR,URINE YELLOW (YELLOW); LEUKOCYTE ESTERASE ,URINE NEGATIVE (NEGATIVE); NITRITE,URINE NEGATIVE (NEGATIVE); PROTEIN,URINE DIPSTICK 2+ (NEGATIVE)
[2020-04-15 09:32] LABS: BILIRUBIN,URINE NEGATIVE (NEGATIVE); KETONES,URINE NEGATIVE (NEGATIVE); URINE UROBILINOGEN 0.2 mg/dL (0.2 - 1)
--- NOTE | 2020-04-15 09:44 | NUR ---
Date of Service: 04/15/2020 PRIMARY CARE PHYSICIAN: Jack Newman M.D. ATTENDING PHYSICIAN: Adan De Santiago M.D. CONSULTING PHYSICIANS: 1. Denise Vail M.D., Nephrology. 2. Kristan Lucero M.D., Hematology-Oncology. 3. Jack Newman M.D., Pulmonology. 4. Domenico Meyer M.D., Gastroenterology. ROS: Six diarrhea stools 04/14, +large diarrhea stool this AM. Severe weakness. Slept well last night. No chills. No nausea. No CINTRON. OBJECTIVE: PHYSICAL EXAMINATION: VITAL SIGNS: Temperature 98.3, pulse 101, 130/83, respirations 20, and SpO2 99%. GENERAL: Supine, in no acute distress, generalized weakness. LUNGS: Clear to auscultation. Respiratory pattern even and unlabored. No supplemental oxygen. HEENT: EOMI. NECK: Supple. No thyromegaly, lymphadenopathy, or JVD. CARDIOVASCULAR: Regular rate and rhythm, without murmur. ABDOMEN: Bowel sounds positive. Soft, nontender. No obvious distention. No guarding. EXTREMITIES: Without pitting edema. No clubbing, cyanosis, or marked swelling. Large left toe tenderness noted at the first metatarsophalangeal joint. NEUROLOGIC: GCS 15, nonfocal. DIAGNOSTIC STUDIES: LABORATORY DATA: Reviewed. 04/15 hemoglobin 7.3 (7.9), hematocrit 22.3 (24.3), platelets 411 (454) Sodium 142, potassium 2.3 (2.2), chloride 100, CO2 of 30 (27), BUN <5, creatinine 0.57, est GFR >60, glucose 97, calcium 7.1, phosphorus 3.4 (2.0), and magnesium 2.1 (1.7). Total bilirubin 0.5, AST 85 (94), ALT 27, alkaline phosphatase 160 (176) 04/14 Uric acid 10.8, TSH 0.166 04/13 UA: specific gravity 1.01, pH 6, urobilinogen 0.2, trace of leukocyte esterase, 6-8 rbc's, 0-5 wbc's. FOBT+ Coronavirus PCR negative. IMAGIN/28 CXR: 1. Right PICC which terminates at the distal SVC. 2. No focal consolidation, pleural effusion or pneumothorax. 04/14 Bilateral Carotid Doppler US preliminary results: possible evidence of left carotid stenosis at ICA 04/14 Left Foot X-ray: No acute radiographic abnormality. 04/13 CT of the brain: 1. Mild left periorbital soft tissue edema. No acute calvarial fracture. 2. Suboptimal evaluation due to motion artifacts, despite the limitation no gross acute intracranial abnormality. 3. Mild generalized cerebral volume loss. 04/13 CT of the cervical spine: 1. No acute cervical spine fracture or dislocation. 2. Ligament, spinal cord and or vascular abnormalities cannot be excluded on the basis of this examination. 3. Mild cervical spondylosis 04/13 CXR: no acute thoracic radiographic abnormality. 04/13 Echocardiogram preliminary results show EF 60-65% ASSESSMENT AND PLAN: 1. Severe Hypokalemia with paralysis: -Admission potassium level was 1.4. Potassium level today 2.3 (2.2). -Repleted by Nephrology with 20mEq KCl IV & 40mEq PO this morning 2. Persistent Diarrhea with Metabolic Alkalosis & Severe Electrolyte Imbalances: -Serum bicarbonate today 30 -Diarrhea off and on for the past 3 months; large diarrhea stool this AM -Gastroenterology following -Electrolyte repletion per Nephrology -Hypomagnesemia, Hypophosphatemia, Hypochloremia, Hypocalcemia improving 3. Syncope on 04/09 with Fall, Contusion of the head, Acute Rhabdomyolysis, Left Foot Pain: -Monitor orthostatic vital signs as the patient tolerates; initially unable to stand -CT Brain, CT of the cervical spine results as above -Awaiting final Bilateral Carotid Doppler US & final Echocardiogram results -Syncope & Falls may be linked to Alcoholism -increasing CK trend is likely due to a washout effect, will likely peak before beginning to improve -Pain control 4. Alcoholism, Beer Potomania, Transaminitis: -Encourage cessation from alcohol -MVI, Thiamine, Folic Acid -Ativan p.r.n. for possible delirium tremens signs and symptoms. -Urine specific gravity 1.01 -Monitor LFTs, Acute Hepatitis Panel pending, Gastroenterology following 5. Anemia with positive FOBT: -Hematology-Oncology & Gastroenterology following. -Elevated iron sat; Hemochromatosis lab pending -Low Vitamin B12, will supplement 6. Severe Weakness both legs, Ambulatory Dysfunction, history of falls: -Weakness likely due to alkalosis/electrolytes/alcoholism -PT eval/treat -Maintain Fall Precautions 7. Hypotension with history of hypertension. -Resumed home antihypertensives, metoprolol tartrate 2.5 mg IV q.6 hours. -Hypotension improved; 130/83 today 8. COPD without acute exacerbation in an Active Smoker: -Pulmonology following -Encourage Cessation from smoking -Mild wheezing -Duonebs q 4 hrs -Solumedrol 80mg IV once 04/14 9. Thrombocytosis: Platelets 411 (454, 476), defer to Hematology-Oncology. 10. Gout: -04/14 Uric acid 10.8 -Large left toe tenderness noted at the first metatarsophalangeal joint. -Colchicine 0.6mg (2) now, then on 04/16 start Allopurinol 300mg daily & Prednisone 20mg TID x 6 doses 11. Possible UTI, POA, with Acute Dehydration: -UA with trace of leukocyte esterase; F/U on final urine C/S results -WBC 7.11, will hold off on ABX for now -IV Fluids as per Nephrology orders PPX: Stephenie Camacho BILLING CODE: [id number], time spent 45 min
[2020-04-15 09:47] LABS: BACTERIA,URINE MANY /HPF; EPITHELIAL CELLS,URINE FEW /LPF; RBC,URINE 0-5 /HPF (0-5)
[2020-04-15 09:48] LABS: MUCUS,URINE FEW (RARE)
[2020-04-15] MEDS: ACETAMINOPHEN 325 MG TAB PO PRN (10:23)
[2020-04-15] MEDS ORDERED: COLCHICINE 0.6 MG TAB PO ONE ×4 (12:00→17:30)
[2020-04-15] MEDS ORDERED: SODIUM CHLORIDE 0.9% 250ML 250 ML IV ONE (13:00)
[2020-04-15 15:14] LABS: INR 0.93; PROTHROMBIN TIME 12.9 seconds (11.9-14.5)
--- NOTE | 2020-04-15 15:54 | NUR ---
Renal Progress note Subjective - chart reviewed, events noted Objective - BP 136/82, RR 20, HR 84, T 98.7 PHYSICAL EXAM: Vitals: Reviewed as per EMR General: Awake, alert, NAD. Poor hygiene HEENT: NC, AT Neck: Supple Respiratory: Decreased breath sounds bilaterally CV: Regular rate, rhythm Abdomen: Soft, non-tender Neuro: Awake, alert LABORATORY: 04/15/2020: WBC: 7.11 Hgb: 7.3 Hct: 22.3 Platelet: 411 BUN: <5 Creatinine: 0.57 Iron: 103 Fe % Sat: 68 TIBC: 151 Ferritin: 237 ALT: 27 AST: 85 Alk Phos: 160 A& P - Hypokalemia - ?? rhabdo, ?? GI loss. wll send urine K, patient has alkalosis which goes against lower GI loss. will send PRA and Aldosterone levels. Will rep lace k as needed and also consider starting on Spironolactone once PRA and PAC is sent. - consider not using Albuterol neb as it would make hypokalemia worse - daily BMP q12 h
[2020-04-15] MEDS: MULTIVITAMINS- 12 INJECTION 10 ML, FOLIC ACID MDV 5 MG, THIAMINE HCL INJ 100 MG in SODI... IV SCH (17:29)
[2020-04-15] MEDS ORDERED: ONDANSETRON HCL 4 MG ORAL DISINTEGRATING TAB PO PRN ×2 (17:30)
[2020-04-15 18:28] LABS: ANION GAP 16.3 mmol/L (8-16); BLOOD UREA NITROGEN < 5 mg/dL (7-26); CALCIUM 7.2 mg/dL (8.4-10.2); CARBON DIOXIDE 26 mmol/L (22-29); CHLORIDE 101 mmol/L (98-107); CREATININE, SERUM 0.59 mg/dL (0.57-1.11); EST GLOMERULAR FILTRATION RATE > 60 ML/MIN (60-); GLUCOSE 107 mg/dL (74-118); POTASSIUM 3.3 mmol/L (3.5-5.1); SODIUM 140 mmol/L (136-145)
[2020-04-15 18:45] LABS: BUN/CREATININE RATIO 8 (6-25)
--- NOTE | 2020-04-15 19:15 | NUR ---
Report given to oncoming nurse, pt stable at shift change.
[2020-04-15] MEDS ORDERED: POTASSIUM CHLORIDE 20 MEQ TAB CR PO ONE (20:00)
[2020-04-15 20:36] LABS: CREATINE KINASE MB 7.2 ng/mL (0-5.0)
[2020-04-15] MEDS: CHLORDIAZEPOXIDE HCL 10 MG CAP PO SCH (20:36)
[2020-04-15] MEDS ORDERED: CHLORDIAZEPOXIDE HCL 10 MG CAP PO SCH (21:00)
[2020-04-15] MEDS ORDERED: SODIUM CHLORIDE 0.9% 250ML 250 ML ONE (22:17)
[2020-04-16] VITALS (9 sets, daily range): BP systolic 124–152; BP diastolic 83–103
[2020-04-16] MEDS ORDERED: FUROSEMIDE INJ 10 MG/ML 2 ML VIAL IV STA (01:33)
[2020-04-16 03:23] LABS: BILIRUBIN,URINE NEGATIVE (NEGATIVE); CLARITY,URINE CLEAR (CLEAR); COLOR,URINE YELLOW (YELLOW); KETONES,URINE NEGATIVE (NEGATIVE); LEUKOCYTE ESTERASE ,URINE NEGATIVE (NEGATIVE); NITRITE,URINE NEGATIVE (NEGATIVE); PROTEIN,URINE DIPSTICK NEGATIVE (NEGATIVE); URINE UROBILINOGEN 0.2 mg/dL (0.2 - 1)
[2020-04-16 03:33] LABS: BACTERIA,URINE RARE /HPF; EPITHELIAL CELLS,URINE FEW /LPF; WBC,URINE (MAN) 0-5 /HPF (0-5)
[2020-04-16] MEDS: ALBUTEROL/IPRATROPIUM 3 ML NEB NEB SCH ×7 (03:40→22:55)
[2020-04-16] MEDS: MULTIVITAMINS- 12 INJECTION 10 ML, FOLIC ACID MDV 5 MG, THIAMINE HCL INJ 100 MG in SODI... IV SCH ×2 (04:15→05:56)
[2020-04-16] MEDS: ACETAMINOPHEN 325 MG TAB PO PRN (05:08)
[2020-04-16 06:28] LABS: BASOPHILS # (AUTO) 0.1 (0.0-0.1); BASOPHILS % 0.7 % (0.0-1.0); EOSINOPHILS # (AUTO) 0.3 (0.0-0.4); EOSINOPHILS % 2.7 % (0.0-6.0); HEMATOCRIT 25.4 % (34.2-44.1); HEMOGLOBIN 8.1 g/dL (12.0-16.0); LYMPHOCYTES # (AUTO) 1.3 (1.0-3.2); LYMPHOCYTES % 13.9 % (18.0-39.1); MEAN CORPUSCULAR HEMOGLOBIN 33.1 pg (28-32); MEAN CORPUSCULAR HGB CONC 31.9 g/dL (31-35); MEAN CORPUSCULAR VOLUME 103.7 fL (81-99); MONOCYTES # (AUTO) 0.4 (0.2-0.8); MONOCYTES % 4.4 % (4.4-11.3); NEUTROPHILS # (AUTO) 7.2 (2.1-6.9); NEUTROPHILS % 77.9 % (38.7-80.0); PLATELET COUNT 378 x10e3/uL (140-360); RED BLOOD COUNT 2.45 x10e6/uL (3.6-5.1); RED CELL DISTRIBUTION WIDTH 17.8 % (11.7-14.4)
[2020-04-16] MEDS: BUDESONIDE/FORMOTEROL FUMARATE 80/4.5MCG 6.9 GM INH AEROSOL IH SCH ×2 (06:30→18:46)
[2020-04-16 06:46] LABS: ALANINE AMINOTRANSFERASE 29 IU/L (0-55); ALBUMIN 2.2 g/dL (3.5-5.0); ALBUMIN/GLOBULIN RATIO 0.9 (0.8-2.0); ALKALINE PHOSPHATASE 150 IU/L (40-150); ANION GAP 14.2 mmol/L (8-16); BLOOD UREA NITROGEN < 5 mg/dL (7-26); CALCIUM 7.1 mg/dL (8.4-10.2); CARBON DIOXIDE 28 mmol/L (22-29); CHLORIDE 100 mmol/L (98-107); CREATININE, SERUM 0.54 mg/dL (0.57-1.11); EST GLOMERULAR FILTRATION RATE > 60 ML/MIN (60-); GLUCOSE 88 mg/dL (74-118); MAGNESIUM 1.6 MG/DL (1.3-2.1); PHOSPHORUS 2.4 MG/DL (2.3-4.7); POTASSIUM 3.2 mmol/L (3.5-5.1); SODIUM 139 mmol/L (136-145)
[2020-04-16 06:48] LABS: BUN/CREATININE RATIO 9 (6-25)
[2020-04-16 06:51] LABS: CREATINE KINASE MB 6.2 ng/mL (0-5.0)
[2020-04-16] MEDS: CYANOCOBALAMIN INJ 1,000 MCG/ML VIAL IM SCH (08:59)
[2020-04-16] MEDS: FAMOTIDINE 20 MG/2 ML VIAL IV SCH ×2 (09:03→17:29)
[2020-04-16] MEDS: DOCUSATE SODIUM 100 MG CAP PO SCH ×2 (09:04→17:29)
[2020-04-16] MEDS: CHLORDIAZEPOXIDE HCL 10 MG CAP PO SCH ×3 (09:04→20:14)
[2020-04-16] MEDS: FOLIC ACID 1 MG TAB PO SCH (09:04)
[2020-04-16] MEDS: SPIRONOLACTONE 25 MG TAB PO SCH (09:04)
--- NOTE | 2020-04-16 09:20 | NUR ---
HEMATOLOGY/ONCOLOGY PROGRESS NOTE Reason for Consult: Macrocytic anemia HPI: Patient resting comfortably, appears NAD. No new complaints. Denies bleeding REVIEW OF SYSTEMS: 12 point ROS negative unless otherwise stated in HPI. PHYSICAL EXAM: Vitals: Reviewed as per EMR General: Awake, alert, NAD. Poor hygiene HEENT: NC, AT Neck: Supple Respiratory: Decreased breath sounds bilaterally CV: Regular rate, rhythm Abdomen: Soft, non-tender Neuro: Awake, alert LABORATORY: 04/16/2020: WBC: 9.23 Hgb: 8.1 Hct: 25.4 Platelet: 378 BUN: <5 Creatinine: 0.54 ASSESSMENT AND PLAN: Ms. Pascal is a 59-year-old female with past medical history of hypertensions, COPD who presented due to inability to ambulate, numbness/tingling in the lower extremities, reported syncopal episode several da ys ago. She also reports intermittent diarrhea for past three months. Workup in the ED included CT brain and CT C-spine negative for acute pathology. Laboratory analysis revealed severely low potassium. She was subsequently admitted for further management with pulmonary and nephrology consulted. Patient noted to have worsening anemia with significant macrocytosis. Hematology/Oncology has been consulted to assist with the management. 1. Anemia: Macrocytosis likely secondary to alcohol abuse and bone marrow suppression. Anemia panel appears predominantly AOCD with noted elevated iron percent saturation possibly due to liver disease/alcohol abuse. Elevated reticulocyte count and LDH, haptoglobin level requested and pending to rule out hemolytic component. B12 level on low end of normal, continue on B12 replacement. FOBT positive. S/p 1 unit PRBC transfused with improvement in hgb. GI consulted. Monitor closely for now. 2. Thrombocytosis: Mild. Likely reactive. Counts improving. Will monitor for now. 3. Transaminitis: No previous reported history of liver cirrhosis, though patient with reported alcohol abuse. Acute hepatitis panel pending. Will obtain abdominal US to further evaluate, currently pending. Will follow-up hemoc hromatosis workup as per #1 as well. GI on board. 4. Weakness/UTI: Possibly secondary to diarrhea/electrolyte abnormalitiesin combination with UTI. CT brain negative for acute pathology. UA with trace leuk esterase initially, nitrite negative, and urine culture with gram negative bacillus. Not on antibiotics, no leukocytosis. Managed per primary team. 5. Hypokalemia: Replacement and further workup per Nephrology on board. 6. DVT Proph: SCDs for now secondary to anemia. If hemoglobin remains stable, will consider starting chemical prophylaxis with Lovenox. Thank you for the consult. I will be available. Please call with questions.
[2020-04-16] MEDS ORDERED: POTASSIUM CHLORIDE 20MEQ/100ML 100 ML IV ONE (09:30)
[2020-04-16] MEDS ORDERED: POTASSIUM PHOSPHATE 30 MM in SODIUM CHLORIDE 0.9% 250ML 250 ML IV ONE (10:30)
--- NOTE | 2020-04-16 12:57 | NUR ---
Renal Progress note Subjective - chart reviewed, events noted Objective - BP 136/84, RR 22, HR 108, T 98.1 PHYSICAL EXAM: General: Awake, alert, NAD. Poor hygiene HEENT: NC, AT Neck: Supple Respiratory: Decreased breath sounds bilaterally CV: Regular rate, rhythm Abdomen: Soft, non-tender Neuro: Awake, alert LABORATORY: 04/16/2020: WBC: 9.23 Hgb: 8.1 Hct: 25.4 Platelet: 378 BUN: <5 Creatinine: 0.54 Na 139, K 3.2, CO2 28, A& P - Hypokalemia - ?? rhabdo, ?? GI loss. Urine K 14, patient has alkalosis which goes against lower GI loss. PRA and Rajat levels awaited. - Will replace k as needed and started on Spironolactone once PRA and PAC is sent. - consider not using Albuterol neb as it would make hypokalemia worse - daily BMP q12 h
--- NOTE | 2020-04-16 13:23 | NUR ---
respiratory her to see pt.,pt put on 3L. will con to monitor.
--- NOTE | 2020-04-16 13:30 | NUR ---
pt having U/S of liver at bedside. tolerating well.
[2020-04-16] MEDS: BENZONATATE 100 MG CAP PO SCH ×2 (14:05→20:14)
--- NOTE | 2020-04-16 15:13 | Diagnostic Imaging Report ---
EXAM: Right Upper Quadrant Ultrasound with Doppler INDICATION: Assess for cirrhosis. COMPARISON: None. TECHNIQUE: Transverse and longitudinal images of the right upper abdomen were obtained. Grayscale, color Doppler and spectral waveform analysis of the hepatic vasculature and splenic vein were performed. FINDINGS: Liver: Size: 18.3 cm in the right midclavicular line, enlarged Appearance: Diffusely echogenic, smooth contour Mass: No focal masses Gallbladder: Stones/Sludge: None Wall: No thickening. Appearance: No pericholecystic fluid or hydrops. Sonographic Haynes's Sign: Negative Bile Ducts: Intrahepatic Ducts: No dilatation Extrahepatic Ducts: Common bile duct measures 0.3 cm, no dilatation Pancreas: Not visualized. Right Kidney: Size: 9.9 x 4.5 x 5.4 cm Echogenicity: Normal Parenchymal thickness: Normal Collecting system: No hydronephrosis Stones: None Cyst/Mass: None Vessels: Main Portal Vein: Diameter: 1.0 cm, normal. Normal flow direction. Aorta: Not well visualized. Inferior Vena Cava: Visualized portions are normal Free Fluid: No ascites or pleural effusion IMPRESSION: Steatotic and enlarged liver. No sonographic evidence of cirrhosis. Signed by: Kierra León MD on 04/16/2020 3:10 PM
--- NOTE | 2020-04-16 19:31 | NUR ---
report given to oncoming nurse . pt stable at this time .
[2020-04-16] MEDS ORDERED: HYDRALAZINE HCL 20 MG/ML VIAL IV PRN (20:30)
[2020-04-16] MEDS: LORAZEPAM INJ 2 MG/ML VIAL IV PRN (23:01)
--- NOTE | 2020-04-16 23:44 | NUR ---
Date of Service: 04/16/2020 PRIMARY CARE PHYSICIAN: Jack Newman M.D. ATTENDING PHYSICIAN: Adan De Santiago M.D. CONSULTING PHYSICIANS: 1. Denise Vail M.D., Nephrology. 2. Kristan Lucero M.D., Hematology-Oncology. 3. Jack Newman M.D., Pulmonology. 4. Domenico Meyer M.D., Gastroenterology. 5. Selina Moody M.D., Cardiology ROS: Six diarrhea stools 04/14, +large diarrhea stool 04/15. Severe weakness. Slept well last night. No chills. No nausea. No CINTRON. Noted that HR 90's to low 100's today. DBP high at times. OBJECTIVE: PHYSICAL EXAMINATION: VITAL SIGNS: Temperature 98.0, pulse 108, 147/97, respirations 22, and SpO2 96%. GENERAL: Supine, in no acute distress, generalized weakness. LUNGS: Clear to auscultation. Respiratory pattern even and unlabored. No supplemental oxygen. HEENT: EOMI. NECK: Supple. No thyromegaly, lymphadenopathy, or JVD. CARDIOVASCULAR: Regular rate and rhythm, without murmur. ABDOMEN: Bowel sounds positive. Soft, nontender. No obvious distention. No guarding. EXTREMITIES: Without pitting edema. No clubbing, cyanosis, or marked swelling. Large left toe tenderness noted at the first metatarsophalangeal joint. NEUROLOGIC: GCS 15, nonfocal. DIAGNOSTIC STUDIES: LABORATORY DATA: Reviewed. 04/16 WBC 9.23, H/H 8.1/25.4, Platelets 378. Sodium 139, potassium 3.2, chloride 100, serum CO2 28, BUN < 5, Cr 0.54, glucose 88, magnesium 1.6. CK 2677 (3091) Renin & Aldosterone pending. UA: pH 7, specific gravity 1.02 04/15 hemoglobin 7.3 (7.9), hematocrit 22.3 (24.3), platelets 411 (454) Sodium 142, potassium 2.3 (2.2), chloride 100, CO2 of 30 (27), BUN <5, creatinine 0.57, est GFR >60, glucose 97, calcium 7.1, phosphorus 3.4 (2.0), and magnesium 2.1 (1.7). Total bilirubin 0.5, AST 85 (94), ALT 27, alkaline phosphatase 160 (176) 04/15 Urine C/S (preliminary): GNB 04/15 FOBT+ 04/15 Hepatitis Panel pending 04/14 Uric acid 10.8, TSH 0.166 04/13 UA: specific gravity 1.01, pH 6, urobilinogen 0.2, trace of leukocyte esterase, 6-8 rbc's, 0-5 wbc's. 04/13 Coronavirus PCR negative. IMAGING/OTHER: 04/15 US Liver: Steatotic & enlarged liver without sonographic evidence of cirrhosis. 04/[address]: Passed. 04/14 CXR: 1. Right PICC which terminates at the distal SVC. 2. No focal consolidation, pleural effusion or pneumothorax. 04/14 Bilateral Carotid Doppler US preliminary results: possible evidence of left carotid stenosis at ICA 04/14 Left Foot X-ray: No acute radiographic abnormality. 04/13 CT of the brain: 1. Mild left periorbital soft tissue edema. No acute calvarial fracture. 2. Suboptimal evaluation due to motion artifacts, despite the limitation no gross acute intracranial abnormality. 3. Mild generalized cerebral volume loss. 04/13 CT of the cervical spine: 1. No acute cervical spine fracture or dislocation. 2. Ligament, spinal cord and or vascular abnormalities cannot be excluded on the basis of this examination. 3. Mild cervical spondylosis 04/13 CXR: no acute thoracic radiographic abnormality. 04/13 Echocardiogram (Final Results): EF 60-65%, diastolic filling pattern indicates impaired relaxation ASSESSMENT AND PLAN: 1. Severe Hypokalemia with leg paralysis: -Admission potassium level was 1.4. Potassium level today 3.2 (3.3, 2.3, 2.2). -defer to Nephrology 2. Persistent Diarrhea with Metabolic Alkalosis & Severe Electrolyte Imbalances: -Serum bicarbonate today 28 -Diarrhea off and on for the past 3 months; one diarrhea stool today, overall improving -Gastroenterology following -Hypomagnesemia, Hypophosphatemia, Hypochloremia, Hypocalcemia improving -Electrolyte repletion per Nephrology 3. Syncope on 04/09 with Fall, Contusion of the head, Acute Rhabdomyolysis, Left Foot Pain: -Monitor orthostatic vital signs as the patient tolerates; initially unable to stand -CT Brain, CT of the cervical spine results as above -Awaiting final Bilateral Carotid Doppler US; interpreting Structural Engineer may not have been assigned when ordered in ED. Cardiology consulted. Final Echocardiogram results as interpreted by Dr. Moody listed above. -Syncope & Falls may be linked to Alcoholism -increasing CK trend is likely due to a washout effect, will likely peak before beginning to improve -Pain control 4. Alcoholism, Beer Potomania, Steatotic Liver, Hepatomegaly, Transaminitis: -Encourage cessation from alcohol -MVI, Thiamine, Folic Acid -Currently on Bumex & Spironolactone -Ativan p.r.n. for possible delirium tremens signs and symptoms. -Urine specific gravity 1.02 -Monitor LFTs, Acute Hepatitis Panel pending, Gastroenterology following 5. Macrocytic Anemia with positive FOBT: -Hematology-Oncology & Gastroenterology following. -Elevated iron sat; Hemochromatosis lab pending -Low Vitamin B12, will supplement 6. Severe Weakness both legs, Ambulatory Dysfunction, history of falls: -Weakness likely due to alkalosis/electrolytes/alcoholism -PT eval/treat -Maintain Fall Precautions 7. HTN with Diastolic CHF: -Currently on Bumex & Spironolactone, prn IV metoprolol tartrate 2.5 mg q 6 hours for SBP > 150. -Hypotension early in hospitalization has improved; 147/97 today. 8. Acute vs Chronic (vs Acute on Chronic) Diastolic CHF: -Echo showed EF 60-65%, diastolic filling pattern indicates impaired relaxation -Currently on Bumex & Spironolactone 9. COPD without acute exacerbation in an Active Smoker: -Pulmonology following -Mild wheezing -home dose Symbicort, Rescue INH -Duonebs q 4 hrs -Solumedrol 80mg IV once 04/14 -Encourage Cessation from smoking 10. Thrombocytosis: -Platelets 378 (411, 454, 476), trend shows improvement -defer to Hematology-Oncology. 11. Gout: -04/14 Uric acid 10.8 -Large left toe tenderness noted at the first metatarsophalangeal joint. -Colchicine 0.6mg (2) now, then on 04/16 start Allopurinol 300mg daily & Prednisone 20mg TID x 6 doses 12. Possible UTI, POA, with Acute Dehydration: -UA with trace of leukocyte esterase -04/15 Urine C/S (preliminary): GNB. F/U on final urine C/S results -WBC < 10, will hold off on ABX for now -IV Fluids as per Nephrology orders PPX: Stephenie Camacho BILLING CODE: [id number], time spent 45 min
[2020-04-17] VITALS (7 sets, daily range): BP systolic 111–148; BP diastolic 77–90
[2020-04-17] MEDS: ALLOPURINOL 300 MG TAB PO SCH ×3 (01:45→09:52)
[2020-04-17] MEDS: PREDNISONE 20 MG TAB PO SCH ×4 (02:44→21:04)
[2020-04-17] MEDS: ALBUTEROL/IPRATROPIUM 3 ML NEB NEB SCH ×6 (02:55→23:05)
[2020-04-17 05:29] LABS: CLARITY,URINE CLEAR (CLEAR); COLOR,URINE YELLOW (YELLOW)
[2020-04-17 05:30] LABS: BILIRUBIN,URINE NEGATIVE (NEGATIVE); KETONES,URINE NEGATIVE (NEGATIVE); LEUKOCYTE ESTERASE ,URINE NEGATIVE (NEGATIVE); NITRITE,URINE NEGATIVE (NEGATIVE); PROTEIN,URINE DIPSTICK NEGATIVE (NEGATIVE); URINE UROBILINOGEN 0.2 mg/dL (0.2 - 1)
[2020-04-17 05:31] LABS: BACTERIA,URINE RARE /HPF; EPITHELIAL CELLS,URINE FEW /LPF; RBC,URINE 0-5 /HPF (0-5); WBC,URINE (MAN) 0-5 /HPF (0-5)
[2020-04-17] MEDS: MULTIVITAMINS- 12 INJECTION 10 ML, FOLIC ACID MDV 5 MG, THIAMINE HCL INJ 100 MG in SODI... IV SCH (06:01)
--- NOTE | 2020-04-17 06:52 | NUR ---
RECEIVED BEDSIDE SHIFT REPORT FROM OFF GOING NURSE. PATIENT IS RESTING IN BED. NO ACUTE DISTRESS NOTED. CALL LIGHT WITHIN REACH. BED IN THE LOWEST POSITION.
[2020-04-17 07:00] LABS: BASOPHILS # (AUTO) 0.1 (0.0-0.1); BASOPHILS % 0.6 % (0.0-1.0); EOSINOPHILS # (AUTO) 0.3 (0.0-0.4); EOSINOPHILS % 2.6 % (0.0-6.0); HEMATOCRIT 26.1 % (34.2-44.1); HEMOGLOBIN 8.3 g/dL (12.0-16.0); LYMPHOCYTES # (AUTO) 0.5 (1.0-3.2); LYMPHOCYTES % 4.5 % (18.0-39.1); MEAN CORPUSCULAR HEMOGLOBIN 33.5 pg (28-32); MEAN CORPUSCULAR HGB CONC 31.8 g/dL (31-35); MEAN CORPUSCULAR VOLUME 105.2 fL (81-99); MONOCYTES # (AUTO) 0.4 (0.2-0.8); MONOCYTES % 3.3 % (4.4-11.3); NEUTROPHILS % 88.5 % (38.7-80.0); PLATELET COUNT 361 x10e3/uL (140-360); RED BLOOD COUNT 2.48 x10e6/uL (3.6-5.1); RED CELL DISTRIBUTION WIDTH 17.7 % (11.7-14.4)
[2020-04-17 07:35] LABS: ALANINE AMINOTRANSFERASE 26 IU/L (0-55); ALBUMIN 2.1 g/dL (3.5-5.0); ALBUMIN/GLOBULIN RATIO 0.8 (0.8-2.0); ALKALINE PHOSPHATASE 139 IU/L (40-150); ANION GAP 15.6 mmol/L (8-16); BLOOD UREA NITROGEN < 5 mg/dL (7-26); CARBON DIOXIDE 24 mmol/L (22-29); CHLORIDE 104 mmol/L (98-107); CREATINE KINASE 1069 IU/L (29-168); CREATININE, SERUM 0.49 mg/dL (0.57-1.11); EST GLOMERULAR FILTRATION RATE > 60 ML/MIN (60-); GLUCOSE 89 mg/dL (74-118); POTASSIUM 3.6 mmol/L (3.5-5.1); SODIUM 140 mmol/L (136-145)
[2020-04-17 07:45] LABS: BUN/CREATININE RATIO 10 (6-25)
[2020-04-17 07:46] LABS: CALCIUM 6.9 mg/dL (8.4-10.2)
--- NOTE | 2020-04-17 07:56 | NUR ---
PAGED DR. BLOUNT FOR CRITICAL CALCIUM OF 6.9, WAITING INVESTMENT EXECUTIVE BACK.
[2020-04-17] MEDS: BUDESONIDE/FORMOTEROL FUMARATE 80/4.5MCG 6.9 GM INH AEROSOL IH SCH ×2 (08:20→19:14)
--- NOTE | 2020-04-17 08:26 | NUR ---
DR. BLOUNT CALLED BACK, NEW ORDERS RECEIVED.
[2020-04-17 09:21] LABS: MAGNESIUM 1.5 MG/DL (1.3-2.1); PHOSPHORUS 3.5 MG/DL (2.3-4.7)
[2020-04-17] MEDS: CHLORDIAZEPOXIDE HCL 10 MG CAP PO SCH ×3 (09:52→21:04)
[2020-04-17] MEDS: BENZONATATE 100 MG CAP PO SCH ×3 (09:52→21:04)
[2020-04-17] MEDS: DOCUSATE SODIUM 100 MG CAP PO SCH ×2 (09:52→16:39)
[2020-04-17] MEDS: FOLIC ACID 1 MG TAB PO SCH (09:52)
[2020-04-17] MEDS: THIAMINE HCL 100 MG TAB PO SCH (09:52)
[2020-04-17] MEDS: CYANOCOBALAMIN INJ 1,000 MCG/ML VIAL IM SCH (09:53)
[2020-04-17] MEDS: SPIRONOLACTONE 25 MG TAB PO SCH (09:53)
[2020-04-17] MEDS: FAMOTIDINE 20 MG/2 ML VIAL IV SCH ×2 (09:53→16:39)
[2020-04-17] MEDS ORDERED: MAGNESIUM SULFATE 2GM/50ML 50 ML IV ONE (11:00)
--- NOTE | 2020-04-17 11:15 | NUR ---
GAVE PACKET OF INFORMATION WITH COMMUNITY RESOURCES FOR ASSISTANCE WITH LOW TO NO INCOME TO PATIENT. RESOURCES THAT PATIENT MAY BE ABLE TO FOLLOW UP UPON DISCHARGE. PT EDUCATED ON EACH RESOURCE AND UNDERSTANDING HOW TO FOLLOW UP TO SEE IF QUALIFIED FOR EACH RESOURCE.
[2020-04-17 11:44] LABS: EOSINOPHILS % (MANUAL) 2 % (0-7); LYMPHOCYTES % (MANUAL) 5 % (19-48); MONOCYTES % (MANUAL) 2 % (3.4-9.0); NEUTROPHILS % (MANUAL) 91 % (40-74)
--- NOTE | 2020-04-17 17:38 | Consultation ---
DATE OF CONSULTATION: 04/17/2020 Cardiology Consult Note REASON FOR CONSULT: Syncope. CHIEF COMPLAINT: "I cannot walk and I fell." HISTORY OF PRESENT ILLNESS: A 59-year-old female, history of alcohol abuse, who presents with severe hypokalemia, weakness, and inability to walk. She fell at home, says she fainted when she was trying to get up and walk. Denies any chest pain, shortness of breath, or previous cardiovascular history. PAST MEDICAL HISTORY: Hypertension, COPD, falls, pneumonia, anxiety, and alcoholism. FAMILY HISTORY: Noncontributory. SOCIAL HISTORY: The patient continues to smoke. Drinks significantly daily up to 5 or 6 drinks of whiskey a day. No drug abuse. REVIEW OF SYSTEMS: As per HPI, otherwise negative. PHYSICAL EXAMINATION: VITAL SIGNS: Temperature afebrile, pulse 78, respiratory rate 19, blood pressure 111/77, and saturating 99% on 3 L nasal cannula. GENERAL: Middle-aged female, no acute distress. CARDIOVASCULAR: Regular rate and rhythm. No murmurs, rubs, or gallops. LUNGS: Clear to auscultation anteriorly. ABDOMEN: Soft, nontender, and nondistended. NEURO AND PSYCH: Alert and oriented. INPATIENT MEDICATIONS: Reviewed. LABORATORY DATA: Reviewed. Hemoglobin is 8.3. Calcium 6.9. Potassium is now improved to 3.6. BNP elevated at 695 on presentation. Elevated CK and CK-MB with normal troponin. IMAGING DATA: Reviewed. ASSESSMENT: 1. Syncope. 2. Elevated BNP. 3. Elevated CK and CK-MB. PLAN: Syncope, most likely secondary to hypokalemia and alcoholism resulting in dehydration and malnutrition. No suspect cardiovascular causes at this time. I reviewed her imaging data. Ejection fraction is 60% to 65%. No severe valvular abnormalities. Carotid Doppler show no significant stenoses. Telemetry shows no significant arrhythmias. We will continue to monitor. No further cardiovascular workup needed at this time. MD FRANCISCO Hinojosa/MODL /[id number]
[2020-04-17] MEDS: ACETAMINOPHEN 325 MG TAB PO PRN (18:18)
--- NOTE | 2020-04-17 19:11 | NUR ---
BEDSIDE SHIFT REPORT GIVEN TO ONCOMING NURSE. PATIENT IS RESTING IN BED, NO ACUTE DISTRESS NOTED. CALL LIGHT WITHIN REACH. BED IN THE LOWEST POSITION.
[2020-04-18] VITALS (8 sets, daily range): BP systolic 127–149; BP diastolic 84–97
[2020-04-18] MEDS: LORAZEPAM INJ 2 MG/ML VIAL IV PRN (00:45)
[2020-04-18 00:49] LABS: CREATINE KINASE MB 3.6 ng/mL (0-5.0)
[2020-04-18] MEDS: ALBUTEROL/IPRATROPIUM 3 ML NEB NEB SCH ×6 (02:55→22:55)
[2020-04-18] MEDS: MULTIVITAMINS- 12 INJECTION 10 ML, FOLIC ACID MDV 5 MG, THIAMINE HCL INJ 100 MG in SODI... IV SCH (06:26)
--- NOTE | 2020-04-18 06:42 | NUR ---
RECEIVED BEDSIDE SHIFT REPORT FROM OFF GOING NURSE. PATIENT IS RESTING IN BED. NO ACUTE DISTRESS NOTED AT THIS TIME. DENIES PAIN OR DISCOMFORT. CALL LIGHT WITHIN REACH. BED IN THE LOWEST POSITION.
[2020-04-18] MEDS: BUDESONIDE/FORMOTEROL FUMARATE 80/4.5MCG 6.9 GM INH AEROSOL IH SCH ×2 (06:58→18:10)
[2020-04-18] MEDS: DOCUSATE SODIUM 100 MG CAP PO SCH ×2 (08:07→16:36)
[2020-04-18] MEDS: FAMOTIDINE 20 MG/2 ML VIAL IV SCH ×2 (08:07→16:36)
[2020-04-18] MEDS: PREDNISONE 20 MG TAB PO SCH ×2 (08:07→14:05)
[2020-04-18] MEDS: THIAMINE HCL 100 MG TAB PO SCH (08:07)
[2020-04-18] MEDS: CHLORDIAZEPOXIDE HCL 10 MG CAP PO SCH ×3 (08:07→20:27)
[2020-04-18] MEDS: BENZONATATE 100 MG CAP PO SCH ×3 (08:07→20:27)
[2020-04-18] MEDS: ALLOPURINOL 300 MG TAB PO SCH (08:07)
[2020-04-18] MEDS: FOLIC ACID 1 MG TAB PO SCH (08:07)
[2020-04-18] MEDS: CYANOCOBALAMIN INJ 1,000 MCG/ML VIAL IM SCH (08:07)
[2020-04-18 09:43] LABS: ALANINE AMINOTRANSFERASE 26 IU/L (0-55); ALKALINE PHOSPHATASE 130 IU/L (40-150); ANION GAP 15.9 mmol/L (8-16); BLOOD UREA NITROGEN 6 mg/dL (7-26); BUN/CREATININE RATIO 10 (6-25); CALCIUM 7.8 mg/dL (8.4-10.2); CARBON DIOXIDE 23 mmol/L (22-29); CHLORIDE 107 mmol/L (98-107); CREATINE KINASE 556 IU/L (29-168); CREATININE, SERUM 0.59 mg/dL (0.57-1.11); EST GLOMERULAR FILTRATION RATE > 60 ML/MIN (60-); GLUCOSE 104 mg/dL (74-118); POTASSIUM 3.9 mmol/L (3.5-5.1); SODIUM 142 mmol/L (136-145)
[2020-04-18 09:44] LABS: ALBUMIN/GLOBULIN RATIO 1.3 (0.8-2.0)
[2020-04-18] MEDS: CEFEPIME 1GM/NS 0.9% 50 ML 50 ML IV SCH (11:00)
[2020-04-18] MEDS: ACETAMINOPHEN 325 MG TAB PO PRN (15:50)
--- NOTE | 2020-04-18 19:13 | NUR ---
BEDSIDE SHIFT REPORT GIVEN TO ONCOMING NURSE. PATIENT IS RESTING IN BED, NO ACUTE DISTRESS NOTED. CALL LIGHT WITHIN REACH. BED IN THE LOWEST POSITION.
[2020-04-18 21:27] LABS: CREATINE KINASE MB 4.5 ng/mL (0-5.0)
[2020-04-19] VITALS (9 sets, daily range): BP systolic 133–160; BP diastolic 84–107
--- NOTE | 2020-04-19 01:17 | NUR ---
Date of Service: 04/17/2020 PRIMARY CARE PHYSICIAN: Jack Newman M.D. ATTENDING PHYSICIAN: Adan De Santiago M.D. CONSULTING PHYSICIANS: 1. Denise Vail M.D., Nephrology. 2. Kristan Luecro M.D., Hematology-Oncology. 3. Jack Newman M.D., Pulmonology. 4. Domenico Meyer M.D., Gastroenterology. 5. Selina Moody M.D., Cardiology ROS: Six diarrhea stools 04/14, +large diarrhea stool 04/15. Minimal diarrhea today. +Severe weakness. OOB, BRP, ambulated with Tevin with PT today. Appetite good. Left large toe with less pain. Decreased swelling. SOB stable. "+Coughing fits". CINTRON 10/10 presently and sore throat. OBJECTIVE: PHYSICAL EXAMINATION: VITAL SIGNS: Temperature 98.4, pulse 92, 134/81, respirations 20, and SpO2 92%. GENERAL: Supine, in no acute distress, generalized weakness. LUNGS: Clear to auscultation. Respiratory pattern even and unlabored. Supplemental oxygen 3 lpm via NC. HEENT: EOMI. NECK: Supple. No thyromegaly, lymphadenopathy, or JVD. CARDIOVASCULAR: Regular rate and rhythm, without murmur. NS Banana Bag at 50cc/hr into Rt PICC. ABDOMEN: Bowel sounds positive. Soft, nontender. No obvious distention. No guarding. EXTREMITIES: Without pitting edema. No clubbing, cyanosis, or marked swelling. Large left toe tenderness noted at the first metatarsophalangeal joint. NEUROLOGIC: GCS 15, nonfocal. DIAGNOSTIC STUDIES: LABORATORY DATA: Reviewed. 04/17 WBC 11.2 (& on Prednisone), H/H 8.3/26.1 04/16 WBC 9.23, H/H 8.1/25.4, Platelets 378. Sodium 139, potassium 3.2, chloride 100, serum CO2 28, BUN < 5, Cr 0.54, glucose 88, magnesium 1.6. CK 2677 (3091) Renin & Aldosterone pending. UA: pH 7, specific gravity 1.02 04/15 hemoglobin 7.3 (7.9), hematocrit 22.3 (24.3), platelets 411 (454) Sodium 142, potassium 2.3 (2.2), chloride 100, CO2 of 30 (27), BUN <5, creatinine 0.57, est GFR >60, glucose 97, calcium 7.1, phosphorus 3.4 (2.0), and magnesium 2.1 (1.7). Total bilirubin 0.5, AST 85 (94), ALT 27, alkaline phosphatase 160 (176) 04/15 Urine C/S (preliminary): GNB 04/15 FOBT+ 04/15 Hepatitis Panel pending 04/14 Uric acid 10.8, TSH 0.166 04/13 UA: specific gravity 1.01, pH 6, urobilinogen 0.2, trace of leukocyte esterase, 6-8 rbc's, 0-5 wbc's. 04/13 Coronavirus PCR negative. IMAGING/OTHER: 04/15 US Liver: Steatotic & enlarged liver without sonographic evidence of cirrhosis. 04/[address]: Marie. 04/14 CXR: 1. Right PICC which terminates at the distal SVC. 2. No focal consolidation, pleural effusion or pneumothorax. 04/14 Bilateral Carotid Doppler US preliminary results: possible evidence of left carotid stenosis at ICA 04/14 Left Foot X-ray: No acute radiographic abnormality. 04/13 CT of the brain: 1. Mild left periorbital soft tissue edema. No acute calvarial fracture. 2. Suboptimal evaluation due to motion artifacts, despite the limitation no gross acute intracranial abnormality. 3. Mild generalized cerebral volume loss. 04/13 CT of the cervical spine: 1. No acute cervical spine fracture or dislocation. 2. Ligament, spinal cord and or vascular abnormalities cannot be excluded on the basis of this examination. 3. Mild cervical spondylosis 04/13 CXR: no acute thoracic radiographic abnormality. 04/13 Echocardiogram (Final Results): EF 60-65%, diastolic filling pattern indicates impaired relaxation ASSESSMENT AND PLAN: 1. Severe Hypokalemia with leg paralysis: -Admission potassium level was 1.4. Potassium level on 04/16=3.2. -defer to Nephrology 2. Persistent Diarrhea with Metabolic Alkalosis & Severe Electrolyte Imbalances: -Serum bicarbonate on 04/16=28 -Diarrhea off and on for the past 3 months; one diarrhea stool today, overall improving -Gastroenterology following -Hypomagnesemia, Hypophosphatemia, Hypochloremia, Hypocalcemia improving -Electrolyte repletion per Nephrology 3. Syncope on 04/09 with Fall, Contusion of the head, Acute Rhabdomyolysis, Left Foot Pain: -Monitor orthostatic vital signs as the patient tolerates; initially unable to stand -CT Brain, CT of the cervical spine results as above -Awaiting final Bilateral Carotid Doppler US; interpreting Warehouse Receiving Clerk may not have been assigned when ordered in ED. Cardiology consulted. Final Echocardiogram results as interpreted by Dr. Moody listed above. -Syncope & Falls may be linked to Alcoholism -increasing CK trend is likely due to a washout effect, will likely peak before beginning to improve -Pain control 4. Alcoholism, Beer Potomania, Steatotic Liver, Hepatomegaly, Transaminitis: -Encourage cessation from alcohol -MVI, Thiamine, Folic Acid -Currently on Bumex & Spironolactone -Ativan p.r.n. for possible delirium tremens signs and symptoms. -Urine specific gravity 1.02 -Monitor LFTs, Acute Hepatitis Panel pending, Gastroenterology following 5. Macrocytic Anemia with positive FOBT: -Hematology-Oncology & Gastroenterology following. -Elevated iron sat; Hemochromatosis lab pending -Low Vitamin B12, will supplement 6. Severe Weakness both legs, Ambulatory Dysfunction, history of falls: -Weakness likely due to alkalosis/electrolytes/alcoholism -PT eval/treat -Maintain Fall Precautions 7. HTN with Diastolic CHF: -Currently on Bumex & Spironolactone, prn IV metoprolol tartrate 2.5 mg q 6 hours for SBP > 150. -Hypotension early in hospitalization has improved; 134/81 today. 8. Acute vs Chronic (vs Acute on Chronic) Diastolic CHF: -Echo showed EF 60-65%, diastolic filling pattern indicates impaired relaxation -Currently on Bumex & Spironolactone 9. COPD without acute exacerbation in an Active Smoker: -Pulmonology following -Mild wheezing -home dose Symbicort, Rescue INH -Duonebs q 4 hrs -Solumedrol 80mg IV once 04/14 -Encourage Cessation from smoking 10. Thrombocytosis: -Platelets 361, trend shows improvement -defer to Hematology-Oncology. 11. Gout: -04/14 Uric acid 10.8 -Large left toe tenderness noted at the first metatarsophalangeal joint. -Colchicine 0.6mg (2) on 04/15, then on 04/16 started Allopurinol 300mg daily & Prednisone 20mg TID x 6 doses 12. Possible UTI, POA, with Acute Dehydration: -UA with trace of leukocyte esterase -04/15 Urine C/S (preliminary): GNB. F/U on final urine C/S results -WBC 11.2 -IV Fluids as per Nephrology orders PPX: Stephenie Camacho BILLING CODE: [id number], time spent 45 min
--- NOTE | 2020-04-19 01:26 | NUR ---
Date of Service: 04/18/2020 PRIMARY CARE PHYSICIAN: Jack Newman M.D. ATTENDING PHYSICIAN: Adan De Santiago M.D. CONSULTING PHYSICIANS: 1. Denise Vail M.D., Nephrology. 2. Kristan Lucero M.D., Hematology-Oncology. 3. Jack Newman M.D., Pulmonology. 4. Domenico Meyer M.D., Gastroenterology. 5. Selina Moody M.D., Cardiology ROS: Six diarrhea stools 04/14, +large diarrhea stool 04/15. No diarrhea today. +Severe weakness. OOB, BRP, ambulates well with PT. Appetite good, requests snacks. Left large toe with less pain; decreased swelling. SOB stable. "+Coughing fits" with associated +HAs. Cepacol helping sore throat. OBJECTIVE: PHYSICAL EXAMINATION: VITAL SIGNS: Temperature 97.7, pulse 100, 144/95, respirations 19, and SpO2 99%. GENERAL: Supine, in no acute distress, generalized weakness. LUNGS: Clear to auscultation. Respiratory pattern even and unlabored. Supplemental oxygen 3 lpm via NC. HEENT: EOMI. NECK: Supple. No thyromegaly, lymphadenopathy, or JVD. CARDIOVASCULAR: Regular rate and rhythm, without murmur. NS Banana Bag at 50cc/hr into Rt PICC. ABDOMEN: Bowel sounds positive. Soft, nontender. No obvious distention. No guarding. EXTREMITIES: Without pitting edema. No clubbing, cyanosis, or marked swelling of legs. Large left toe tenderness noted at the first metatarsophalangeal joint. RUE swollen, +hematoma Rt forearm. NEUROLOGIC: GCS 15, nonfocal. DIAGNOSTIC STUDIES: LABORATORY DATA: Reviewed. 04/18 Potassium 3.9, BUN 6, Cr 0.59 04/17 WBC 11.2 (& on Prednisone), H/H 8.3/26.1 04/16 WBC 9.23, H/H 8.1/25.4, Platelets 378. Sodium 139, potassium 3.2, chloride 100, serum CO2 28, BUN < 5, Cr 0.54, glucose 88, magnesium 1.6. CK 2677 (3091) Renin & Aldosterone pending. UA: pH 7, specific gravity 1.02 04/15 hemoglobin 7.3 (7.9), hematocrit 22.3 (24.3), platelets 411 (454) Sodium 142, potassium 2.3 (2.2), chloride 100, CO2 of 30 (27), BUN <5, creatinine 0.57, est GFR >60, glucose 97, calcium 7.1, phosphorus 3.4 (2.0), and magnesium 2.1 (1.7). Total bilirubin 0.5, AST 85 (94), ALT 27, alkaline phosphatase 160 (176) 04/15 Urine C/S: (Final): MDR Enterobacter Erogenes URINE CULTURE Final Organism 1 ENTEROBACTER AEROGENES COLONY COUNT >=100,000 cfu/ml ENT AEROGE M.I.C. RX --------- ---- TRIMETHOPRIM/SULFAMETHOXAZOLE <=/38 S AMPICILLIN 16 R* AMPICILLIN/SULBACTAM(UNASYN). <=8/ R* AZTREONAM <=4 S CEFAZOLIN (ANCEF) >16 R CEFOTAXIME (CLAFORAN) <=2 S CEFTAZIDIME <=1 S CEFTRIAXONE (ROCEPHIN) <=1 S CEFEPIME (MAXIPIME) <=4 S CEFUROXIME <=4 R* CIPROFLOXACIN (CIPRO) <=1 S ERTAPENEM (INVANZ) <=1 S GENTAMICIN (GARAMYCIN) <=4 S IMIPENEM (PRIMAXIN) <=1 S LEVOFLOXACIN (LEVAQUIN) <=2 S MEROPENEM (MERREM) <=1 S NITROFURANTOIN (MACRODANTIN) 64 I TOBRAMYCIN <=4 S AMIKACIN <=16 S PIPERACILLIN/TAZOBACT (ZOSYN) <=16 S 04/15 FOBT+ 04/15 Hepatitis Panel pending 04/14 Uric acid 10.8, TSH 0.166 04/13 UA: specific gravity 1.01, pH 6, urobilinogen 0.2, trace of leukocyte esterase, 6-8 rbc's, 0-5 wbc's. 04/13 Coronavirus PCR negative. IMAGING/OTHER: 04/15 US Liver: Steatotic & enlarged liver without sonographic evidence of cirrhosis. 04/[address]: Marie. 04/14 CXR: 1. Right PICC which terminates at the distal SVC. 2. No focal consolidation, pleural effusion or pneumothorax. 04/14 Bilateral Carotid Doppler US preliminary results: possible evidence of left carotid stenosis at ICA 04/14 Left Foot X-ray: No acute radiographic abnormality. 04/13 CT of the brain: 1. Mild left periorbital soft tissue edema. No acute calvarial fracture. 2. Suboptimal evaluation due to motion artifacts, despite the limitation no gross acute intracranial abnormality. 3. Mild generalized cerebral volume loss. 04/13 CT of the cervical spine: 1. No acute cervical spine fracture or dislocation. 2. Ligament, spinal cord and or vascular abnormalities cannot be excluded on the basis of this examination. 3. Mild cervical spondylosis 04/13 CXR: no acute thoracic radiographic abnormality. 04/13 Echocardiogram (Final Results): EF 60-65%, diastolic filling pattern indicates impaired relaxation ASSESSMENT AND PLAN: 1. Severe Hypokalemia with leg paralysis: -Admission potassium level was 1.4. Potassium level today 3.9. -defer to Nephrology 2. Persistent Diarrhea with Metabolic Alkalosis & Severe Electrolyte Imbalances: -Serum bicarbonate today -Diarrhea off and on for the past 3 months; overall improving -Gastroenterology following -Hypomagnesemia, Hypophosphatemia, Hypochloremia, Hypocalcemia improving -Electrolyte repletion per Nephrology 3. Syncope on 04/09 with Fall, Contusion of the head, Acute Rhabdomyolysis, Left Foot Pain: -Monitor orthostatic vital signs as the patient tolerates; initially unable to stand -CT Brain, CT of the cervical spine results as above -Awaiting final Bilateral Carotid Doppler US; interpreting Box Repairer may not have been assigned when ordered in ED. Cardiology consulted. Final Echocardiogram results as interpreted by Dr. Moody listed above. -Syncope & Falls may be linked to Alcoholism -increasing CK trend is likely due to a washout effect, will likely peak before beginning to improve -Pain control 4. Alcoholism, Beer Potomania, Steatotic Liver, Hepatomegaly, Transaminitis: -Encourage cessation from alcohol -MVI, Thiamine, Folic Acid -Currently on Bumex & Spironolactone -Ativan p.r.n. for possible delirium tremens signs and symptoms. -Urine specific gravity 1.015 -Monitor LFTs, Acute Hepatitis Panel pending, Gastroenterology following 5. Macrocytic Anemia with positive FOBT: -Hematology-Oncology & Gastroenterology following. -Elevated iron sat; Hemochromatosis lab pending -Low Vitamin B12, supplemented 6. Severe Weakness both legs, Ambulatory Dysfunction, history of falls: -Weakness likely due to alkalosis/electrolytes/alcoholism -PT eval/treat -Maintain Fall Precautions 7. HTN with Diastolic CHF: -Currently on Bumex & Spironolactone, prn IV metoprolol tartrate 2.5 mg q 6 hours for SBP > 150. -Hypotension early in hospitalization has improved; 144/95 today. 8. Acute vs Chronic (vs Acute on Chronic) Diastolic CHF: -Echo showed EF 60-65%, diastolic filling pattern indicates impaired relaxation -Currently on Bumex & Spironolactone 9. COPD without acute exacerbation in an Active Smoker: -Pulmonology following -Mild wheezing -home dose Symbicort, Rescue INH -Duonebs q 4 hrs -Solumedrol 80mg IV once 04/14 -Encourage Cessation from smoking 10. Thrombocytosis: -Platelets 361, trend shows improvement -defer to Hematology-Oncology. 11. Gout: -04/14 Uric acid 10.8 -Large left toe tenderness noted at the first metatarsophalangeal joint. -Colchicine 0.6mg (2) on 04/15, then on 04/16 started Allopurinol 300mg daily & Prednisone 20mg TID x 6 doses 12. Acute UTI with MDR Enterobacter Erogenes, POA, with Acute Dehydration: -UA with trace of leukocyte esterase -WBC 11.2, reassess in AM -IV Fluids as per Nephrology orders PPX: Stephenie Camacho BILLING CODE: [id number], time spent 45 min
[2020-04-19] MEDS: MULTIVITAMINS- 12 INJECTION 10 ML, FOLIC ACID MDV 5 MG, THIAMINE HCL INJ 100 MG in SODI... IV SCH (01:55)
[2020-04-19] MEDS: LORAZEPAM INJ 2 MG/ML VIAL IV PRN ×2 (01:55→14:54)
[2020-04-19] MEDS: ALBUTEROL/IPRATROPIUM 3 ML NEB NEB SCH ×7 (03:05→22:53)
[2020-04-19 06:21] LABS: BASOPHILS # (AUTO) 0.1 (0.0-0.1); BASOPHILS % 0.6 % (0.0-1.0); EOSINOPHILS # (AUTO) 0.2 (0.0-0.4); EOSINOPHILS % 1.9 % (0.0-6.0); HEMATOCRIT 23.7 % (34.2-44.1); HEMOGLOBIN 7.6 g/dL (12.0-16.0); LYMPHOCYTES # (AUTO) 1.2 (1.0-3.2); LYMPHOCYTES % 13.2 % (18.0-39.1); MEAN CORPUSCULAR HEMOGLOBIN 35.8 pg (28-32); MEAN CORPUSCULAR HGB CONC 32.1 g/dL (31-35); MEAN CORPUSCULAR VOLUME 111.8 fL (81-99); MONOCYTES # (AUTO) 0.5 (0.2-0.8); MONOCYTES % 5.7 % (4.4-11.3); NEUTROPHILS % 77.9 % (38.7-80.0); PLATELET COUNT 376 x10e3/uL (140-360); RED BLOOD COUNT 2.12 x10e6/uL (3.6-5.1)
[2020-04-19] MEDS: BUDESONIDE/FORMOTEROL FUMARATE 80/4.5MCG 6.9 GM INH AEROSOL IH SCH ×2 (06:32→18:37)
--- NOTE | 2020-04-19 07:00 | NUR ---
BEDSIDE SHIFT REPORT RECEIVED FROM THE FACILITY SERVICE ASSOCIATE RN. EDUCATED PT ABOUT FALL PRECAUTIONS. PT VERBALIZED UNDERSTANDING. CALL LIGHT WITH IN EASY REACH. BED IS LOW AND LOCKED. SIDE RAILS X2. BED ALARM IS ON. ALL SAFETY MEASURES IN PLACE. PT DENIES NEEDS AT THIS TIME.
--- NOTE | 2020-04-19 08:00 | NUR ---
PT OFF UNIT FOR PROCEDURE IN SAFE CONDITION.
[2020-04-19] MEDS ORDERED: ALBUTEROL SULF 0.083% NEB SOLN 3 ML NEB ONE ×2 (08:32→08:39)
--- NOTE | 2020-04-19 09:55 | NUR ---
PT BACK TO UNIT AFTER PROCEDURE. PT DENIES NEEDS AT THIS TIME.
--- NOTE | 2020-04-19 09:56 | Operative Report ---
DATE OF PROCEDURE: 04/19/2020 SURGEON: Domenico Meyer MD PROCEDURE: EGD with esophageal brushings and biopsies. INDICATIONS FOR EGD: Anemia, occult blood in stools. MEDICATIONS: The patient was done under MAC. Please see anesthesiologist's note. PROCEDURE IN DETAIL: With the patient in left lateral decubitus position, a flexible fiberoptic Olympus gastroscope was introduced into the esophagus under direct visualization without any difficulty. There were some diffuse yellowish-whitish plaques noted, pretty much throughout the esophagus compatible with Aida and those were brushed. The scope was then advanced with ease into the stomach traversing a moderate-sized hiatal hernia. Mucosa overlying the antrum and the body revealed some patchy erythema. An approximately 8 mm ulcer with heaped up margins was noted in the antrum with stigmata of recent hemorrhage. Biopsies were obtained. Pylorus was intubated with ease and the scope was advanced all the way to the second portion of the duodenum. An approximately 6 mm submucosal nodule was noted in the proximal second portion that was biopsied to rule out lipoma, mucosa overlying the duodenal bulb appeared to be within normal limits. The scope was then withdrawn back into the stomach and retroflexed and mucosa overlying the fundus and cardia appeared to be within normal limits. The scope was then straightened out, it was subsequently withdrawn. The patient tolerated the procedure well. IMPRESSION: 1. Rule out Aida esophagitis. 2. Moderate-sized hiatal hernia. 3. Gastritis, mild. 4. Gastric ulcer, antrum with heaped up margins approximately 8 mm in size with stigmata of recent hemorrhage biopsied. 5. Approximately 6 mm submucosal nodule, 2nd portion. Biopsies obtained to rule out lipoma. PLAN: Follow up histology. Continue current therapy. Domenico Meyer MD [facility] [place] [facility] [place][id number] cc: Adan De Santiago MD
[2020-04-19] MEDS ORDERED: PANTOPRAZOLE 40 MG 10ML VIAL IV SCH (10:00)
[2020-04-19] MEDS: DOCUSATE SODIUM 100 MG CAP PO SCH ×2 (10:00→16:25)
[2020-04-19] MEDS: ALLOPURINOL 300 MG TAB PO SCH (10:00)
[2020-04-19] MEDS: BENZONATATE 100 MG CAP PO SCH ×3 (10:00→20:44)
[2020-04-19] MEDS: FAMOTIDINE 20 MG/2 ML VIAL IV SCH (10:00)
[2020-04-19] MEDS: THIAMINE HCL 100 MG TAB PO SCH (10:00)
[2020-04-19] MEDS: CYANOCOBALAMIN INJ 1,000 MCG/ML VIAL IM SCH (10:00)
[2020-04-19] MEDS: FOLIC ACID 1 MG TAB PO SCH (10:00)
[2020-04-19] MEDS: CHLORDIAZEPOXIDE HCL 10 MG CAP PO SCH ×3 (10:00→20:44)
[2020-04-19] MEDS: METOPROLOL TARTRATE INJ 1 MG/ML VIAL IV PRN (10:19)
[2020-04-19] MEDS: CEFEPIME 1GM/NS 0.9% 50 ML 50 ML IV SCH (10:41)
[2020-04-19 10:54] LABS: PLATELET ESTIMATE SLIGHTLY INCREASED; PLATELET MORPHOLOGY COMMENT NORMAL; POLYCHROMASIA FEW; RBC MORPHOLOGY COMMENT ABNORMAL
[2020-04-19] MEDS: FLUCONAZOLE 200 MG/100 ML 100 ML IV SCH (11:00)
[2020-04-19 11:06] LABS: ALANINE AMINOTRANSFERASE 33 IU/L (0-55); ALBUMIN 3.1 g/dL (3.5-5.0); ALBUMIN/GLOBULIN RATIO 1.3 (0.8-2.0); ALKALINE PHOSPHATASE 129 IU/L (40-150); ANION GAP 13.5 mmol/L (8-16); BLOOD UREA NITROGEN 7 mg/dL (7-26); BUN/CREATININE RATIO 13 (6-25); CALCIUM 7.8 mg/dL (8.4-10.2); CARBON DIOXIDE 23 mmol/L (22-29); CHLORIDE 110 mmol/L (98-107); CREATINE KINASE 273 IU/L (29-168); CREATININE, SERUM 0.56 mg/dL (0.57-1.11); EST GLOMERULAR FILTRATION RATE > 60 ML/MIN (60-); POTASSIUM 3.5 mmol/L (3.5-5.1); SODIUM 143 mmol/L (136-145)
[2020-04-19 11:15] LABS: GLUCOSE 59 mg/dL (74-118)
--- NOTE | 2020-04-19 11:15 | NUR ---
CALL RECEIVED FROM LAB. BLOOD SUGAR 59. PT IS AAOX3. 8 FL OZ ORANGE JUICE GIVEN. PT DENIES NEEDS AT THIS TIME.
[2020-04-19] MEDS: SUCRALFATE 1 GM TAB PO SCH ×3 (11:29→20:44)
[2020-04-19] MEDS: NIFEDIPINE CR 30 MG TAB PO SCH ×2 (11:30→20:44)
--- NOTE | 2020-04-19 11:44 | NUR ---
BLOOD SUGAR RECHECKED. 81 NOTED. PT IS AAOX3. DENIES NEEDS AT THIS TIME.
--- NOTE | 2020-04-19 14:45 | NUR ---
PATIENT RESPIRATORY RATE 28. PAGED RESPIRATORY. BREATHING TREATMENT GIVEN BY RESPIRATORY. REPORTED THE SAME TO KEN WELSH
[2020-04-19] MEDS ORDERED: GLUCAGON FOR INJ 1 MG VIAL ONE (14:46)
[2020-04-19] MEDS ORDERED: PROPOFOL IV EMULSION 10 MG/ML 20 ML VIAL ONE (14:46)
[2020-04-19] MEDS ORDERED: METOCLOPRAMIDE HCL 10 MG/2ML VIAL ONE (14:46)
--- NOTE | 2020-04-19 15:00 | NUR ---
WILL NÚÑEZ AND REPORTED PT RESPIRATORY RATE 28.
--- NOTE | 2020-04-19 15:43 | Diagnostic Imaging Report ---
TECHNIQUE: Frontal view of the chest. INDICATION: ^TO R/O PNEUMONIA, TACHYPNEA ^[id number] ^[id number] ^Y COMPARISON: 04/14/2020 DISCUSSION: Limited evaluation due to portable technique. Lines and hardware: Right PICC is stable. Multiple overlying EKG leads are noted. Heart and mediastinum: Stable. Lungs and pleura: There are new patchy opacities at the lung bases, right greater than left. Negative for large effusion or pneumothorax. Soft tissues and bones: No acute abnormality. IMPRESSION: Patchy opacities at the lung bases, right greater than left, new since 04/14/2020. Findings can be seen in patients with aspiration or multifocal pneumonia. Signed by: Benedicto Jacobs MD on 04/19/2020 3:39 PM
[2020-04-19] MEDS ORDERED: METHYLPREDNISOLONE SOD SUCC 125 MG/2ML VIAL IV ONE (16:00)
[2020-04-19] MEDS ORDERED: VANCOMYCIN 1GM/NS 250 ML 250 ML IV ONE (16:30)
--- NOTE | 2020-04-19 17:06 | NUR ---
Nutrition Screen Note RD Recommendation for Physician: -Continue regular diet Plan of Care: RD following, monitoring for tolerance and adequacy Nutrition reason for involvement: Length of stay Primary Diagnose(s): contusion of head, hypokalemia, syncope, and weakness PMH: Hypertension, COPD, falls, pneumonia in 2017, anxiety, and probable alcoholism. Ht: 65 in Wt: 145.5 lb BMI: 24.2 kg/m2 IBW: [address] Assessment: (04/19/20) Chart reviewed. Labs and meds reviewed. Pt is a 59 year old female admitted with contusion of head, hypokalemia, syncope, and weakness. There are no reports of recent unintentional weight loss or decreased appetite prior to admission. Pt has been consuming 50-100% of meals during admission. Will continue to monitor. Current Diet: regular Malnutrition Evaluation (04/19/20) The patient does not meet criteria for a specified degree of malnutrition at this time. Will re-evaluate at follow-up as appropriate. Diet Education Needs Assessment: Diet education not indicated. Nutrition Care Level: low Signed: Paz Horta, RD, LD
--- NOTE | 2020-04-19 17:44 | Progress Note ---
DATE: SUBJECTIVE: The patient had some difficulty breathing and shortness of breath this afternoon. She received Solu-Medrol. She had a stat portable chest x-ray that showed possible aspiration pneumonia. PHYSICAL EXAMINATION: VITAL SIGNS: Blood pressure is 135/84, saturation is 100% on 3 L. HEENT: Shows no facial swelling or erythema. LYMPHATIC: Shows no submandibular, cervical, or supraclavicular adenopathy. CARDIAC: Reveals a regular rate and rhythm with normal S1, S2. LUNGS: Auscultation of lungs reveals clear breath sounds bilaterally. There is no wheezing. ABDOMEN: Soft, nontender. There is no rebound or guarding. EXTREMITIES: Shows no leg edema or calf tenderness. There is no cyanosis or clubbing. SKIN: Shows no rashes. NEUROLOGICAL: Shows no focal abnormalities. LABORATORY DATA: White blood cell count is 8.9 and hemoglobin is 7.6. The platelet count is 376. The BUN to creatinine ratio is normal. The other electrolytes are within normal limits. The albumin is 3.1. RADIOGRAPHIC DATA: Shows patchy opacities at the lung bases, right greater than left. IMPRESSION: 1. Chronic obstructive pulmonary disease with acute exacerbation. 2. Aspiration pneumonia. 3. Diarrhea. 4. Hypokalemia. PLAN: 1. Continue bronchodilators. 2. Continue oxygen. 3. Continue with speech pathology evaluation. 4. Vancomycin x1 dose along with cefepime. Jack Newman MD [facility]/MOD[facility] /[id number]
[2020-04-19] MEDS ORDERED: MIDAZOLAM HCL 2 MG/2 ML VIAL ONE (17:52)
[2020-04-19] MEDS ORDERED: FENTANYL CITRATE/PF 100MCG/2 ML INJ ONE (17:52)
--- NOTE | 2020-04-19 18:30 | NUR ---
PT REFUSED BED ALARM
--- NOTE | 2020-04-19 19:00 | NUR ---
BEDSIDE SHIFT REPORT GIVEN TO THE PROTECTION SPECIALIST RN. PT DENIED FURTHER NEEDS.
[2020-04-19] MEDS: PANTOPRAZOLE SOD 40 MG TABEC PO SCH (20:44)
[2020-04-19 22:01] LABS: CREATINE KINASE MB 4.4 ng/mL (0-5.0)
[2020-04-20] VITALS (9 sets, daily range): BP systolic 118–148; BP diastolic 75–96
[2020-04-20] MEDS: MULTIVITAMINS- 12 INJECTION 10 ML, FOLIC ACID MDV 5 MG, THIAMINE HCL INJ 100 MG in SODI... IV SCH (02:04)
--- NOTE | 2020-04-20 02:40 | NUR ---
Date of Service: 04/19/2020 PRIMARY CARE PHYSICIAN: Jack Newman M.D. ATTENDING PHYSICIAN: Adan De Santiago M.D. CONSULTING PHYSICIANS: 1. Denise Vail M.D., Nephrology. 2. Kristan Lucero M.D., Hematology-Oncology. 3. Jack Newman M.D., Pulmonology. 4. Domenico Meyer M.D., Gastroenterology. 5. Selina Moody M.D., Cardiology ROS: The patient received Solu-Medrol this afternoon due to difficulty breathing and shortness of breath; stat portable chest x-ray showed possible aspiration pneumonia. "+Coughing fits" with associated +HAs. Cepacol is helping sore throat. Six diarrhea stools 04/14, +large diarrhea stool 04/15. No diarrhea today. +Severe weakness. OOB, BRP, ambulates well with PT. Appetite good, requests snacks. Left large toe with less pain; decreased swelling. SOB stable. OBJECTIVE: PHYSICAL EXAMINATION: VITAL SIGNS: Temperature 96.8, pulse 105, 148/90, respirations 20, and SpO2 98%. GENERAL: Supine, in no acute distress, generalized weakness. LUNGS: Clear to auscultation. Respiratory pattern even and unlabored. Supplemental oxygen 3 lpm via NC. HEENT: EOMI. NECK: Supple. No thyromegaly, lymphadenopathy, or JVD. CARDIOVASCULAR: Regular rate and rhythm, without murmur. NS Banana Bag at 50cc/hr into Rt PICC. ABDOMEN: Bowel sounds positive. Soft, nontender. No obvious distention. No guarding. EXTREMITIES: Without pitting edema. No clubbing, cyanosis, or marked swelling of legs. Large left toe tenderness noted at the first metatarsophalangeal joint. RUE swollen, +hematoma Rt forearm. NEUROLOGIC: GCS 15, nonfocal. DIAGNOSTIC STUDIES: LABORATORY DATA: Reviewed. 04/19 H/H 7.6/23.7 04/18 Potassium 3.9, BUN 6, Cr 0.59 04/17 WBC 11.2 (& on Prednisone), H/H 8.3/26.1 04/16 WBC 9.23, H/H 8.1/25.4, Platelets 378. Sodium 139, potassium 3.2, chloride 100, serum CO2 28, BUN < 5, Cr 0.54, glucose 88, magnesium 1.6. CK 2677 (3091) Renin & Aldosterone pending. UA: pH 7, specific gravity 1.02 04/15 hemoglobin 7.3 (7.9), hematocrit 22.3 (24.3), platelets 411 (454) Sodium 142, potassium 2.3 (2.2), chloride 100, CO2 of 30 (27), BUN <5, creatinine 0.57, est GFR >60, glucose 97, calcium 7.1, phosphorus 3.4 (2.0), and magnesium 2.1 (1.7). Total bilirubin 0.5, AST 85 (94), ALT 27, alkaline phosphatase 160 (176) 04/15 Urine C/S: (Final): MDR Enterobacter Erogenes URINE CULTURE Final Organism 1 ENTEROBACTER AEROGENES COLONY COUNT >=100,000 cfu/ml ENT AEROGE M.I.C. RX --------- ---- TRIMETHOPRIM/SULFAMETHOXAZOLE <=/ S AMPICILLIN 16 R* AMPICILLIN/SULBACTAM(UNASYN). <=8/ R* AZTREONAM <=4 S CEFAZOLIN (ANCEF) >16 R CEFOTAXIME (CLAFORAN) <=2 S CEFTAZIDIME <=1 S CEFTRIAXONE (ROCEPHIN) <=1 S CEFEPIME (MAXIPIME) <=4 S CEFUROXIME <=4 R* CIPROFLOXACIN (CIPRO) <=1 S ERTAPENEM (INVANZ) <=1 S GENTAMICIN (GARAMYCIN) <=4 S IMIPENEM (PRIMAXIN) <=1 S LEVOFLOXACIN (LEVAQUIN) <=2 S MEROPENEM (MERREM) <=1 S NITROFURANTOIN (MACRODANTIN) 64 I TOBRAMYCIN <=4 S AMIKACIN <=16 S PIPERACILLIN/TAZOBACT (ZOSYN) <=16 S 04/15 FOBT+ 04/15 Hepatitis Panel pending 04/14 Uric acid 10.8, TSH 0.166 04/13 UA: specific gravity 1.01, pH 6, urobilinogen 0.2, trace of leukocyte esterase, 6-8 rbc's, 0-5 wbc's. 04/13 Coronavirus PCR negative. IMAGING/OTHER: 04/19 CXR: Patchy opacities at the lung bases, right greater than left, new since 04/14/2020. Findings can be seen in patients with aspiration or multifocal pneumonia. 04/15 US Liver: Steatotic & enlarged liver without sonographic evidence of cirrhosis. 04/[address]: Marie. 04/14 CXR: 1. Right PICC which terminates at the distal SVC. 2. No focal consolidation, pleural effusion or pneumothorax. 04/14 Bilateral Carotid Doppler US preliminary results: possible evidence of left carotid stenosis at ICA 04/14 Left Foot X-ray: No acute radiographic abnormality. 04/13 CT of the brain: 1. Mild left periorbital soft tissue edema. No acute calvarial fracture. 2. Suboptimal evaluation due to motion artifacts, despite the limitation no gross acute intracranial abnormality. 3. Mild generalized cerebral volume loss. 04/13 CT of the cervical spine: 1. No acute cervical spine fracture or dislocation. 2. Ligament, spinal cord and or vascular abnormalities cannot be excluded on the basis of this examination. 3. Mild cervical spondylosis 04/13 CXR: no acute thoracic radiographic abnormality. 04/13 Echocardiogram (Final Results): EF 60-65%, diastolic filling pattern indicates impaired relaxation ASSESSMENT AND PLAN: 1. Severe Hypokalemia with leg paralysis: -Admission potassium level was 1.4. Potassium level 04/18= 3.9. -defer to Nephrology 2. Persistent Diarrhea with Metabolic Alkalosis & Severe Electrolyte Imbalances: -Serum bicarbonate 04/18= 23 -Diarrhea off and on for the past 3 months; overall improving -Gastroenterology following -Hypomagnesemia, Hypophosphatemia, Hypochloremia, Hypocalcemia improving -Electrolyte repletion per Nephrology 3. Syncope on 04/09 with Fall, Contusion of the head, Acute Rhabdomyolysis, Left Foot Pain: -Monitor orthostatic vital signs as the patient tolerates; initially unable to stand -CT Brain, CT of the cervical spine results as above -Awaiting final Bilateral Carotid Doppler US; interpreting Beading Machine Operator may not have been assigned when ordered in ED. Cardiology consulted. Final Echocardiogram results as interpreted by Dr. Moody listed above. -Syncope & Falls may be linked to Alcoholism -Pain control 4. Alcoholism, Beer Potomania, Steatotic Liver, Hepatomegaly, Transaminitis: -Encourage cessation from alcohol -MVI, Thiamine, Folic Acid -Currently on Bumex -Ativan p.r.n. for possible delirium tremens signs and symptoms. -Urine specific gravity 1.015 -Monitor LFTs, Acute Hepatitis Panel pending, Gastroenterology following 5. Macrocytic Anemia with positive FOBT: -Hematology-Oncology & Gastroenterology following. -Elevated iron sat; Hemochromatosis lab pending -Low Vitamin B12, supplemented 6. Severe Weakness both legs, Ambulatory Dysfunction, history of falls: -Weakness likely due to alkalosis/electrolytes/alcoholism -PT eval/treat. Maintain Fall Precautions 7. HTN with Diastolic CHF: -Currently on Bumex, prn IV metoprolol tartrate 2.5 mg q 6 hours for SBP > 150. -Hypotension early in hospitalization has improved 8. Acute vs Chronic (vs Acute on Chronic) Diastolic CHF: -Echo showed EF 60-65%, diastolic filling pattern indicates impaired relaxation -Currently on Bumex 9. COPD with acute exacerbation in an Active Smoker: -Pulmonology following -Mild wheezing; +audible without use of a stethescope early afternoon of 04/19, 60mg Solumedrol IV once -home dose Symbicort, Rescue INH -Duonebs q 4 hrs -Solumedrol 80mg IV once 04/14 -Encourage Cessation from smoking 10. Aspiration Pneumonia: -Case discussed with Dr. Newman 04/19. Vancomycin 1 gram IV x1 dose along with cefepime. -Continue bronchodilators & oxygen. -Continue with speech pathology evaluation. -F/U on any CXR & Chest CT results. 11. Thrombocytosis: -Platelets 376, trend shows improvement -defer to Hematology-Oncology. 12. Gout: -04/14 Uric acid 10.8 -Large left toe tenderness noted at the first metatarsophalangeal joint. -Colchicine 0.6mg (2) on 04/15, then on 04/16 started Allopurinol 300mg daily & Prednisone 20mg TID x 6 doses 13. Acute UTI with MDR Enterobacter Erogenes, POA, with Acute Dehydration: -UA with trace of leukocyte esterase -WBC 8.97, monitor -Continue Cefepime -IV Fluids as per Nephrology orders PPX: Pepcid, SCDs Discharge planning: Overall DC Plan: Home with Home Health Per PT note as copied Radha Batconrad: Patient overall tolerated PT well. Ambulates safely with rolling walker for 100 ft and 300 ft with a standing rest break. Attempted gait without walker but patient unsteady and loss of balance. Eventually patient holding onto hallway railing to ambulate. At this time, needs to continue to ambulate with a walker but will wean from walker when appropriate. Will continue to benefit from PT. Colonoscopy is planned on an outpatient basis. BILLING CODE: [id number], time spent 45 min
[2020-04-20] MEDS: ALBUTEROL/IPRATROPIUM 3 ML NEB NEB SCH ×5 (05:15→23:40)
[2020-04-20] MEDS: BUDESONIDE/FORMOTEROL FUMARATE 80/4.5MCG 6.9 GM INH AEROSOL IH SCH ×2 (07:01→19:34)
[2020-04-20 07:12] LABS: BASOPHILS % 0.3 % (0.0-1.0); EOSINOPHILS % 0.2 % (0.0-6.0); HEMATOCRIT 25.9 % (34.2-44.1); LYMPHOCYTES # (AUTO) 0.4 (1.0-3.2); LYMPHOCYTES % 6.2 % (18.0-39.1); MEAN CORPUSCULAR HEMOGLOBIN 35.2 pg (28-32); MEAN CORPUSCULAR HGB CONC 30.9 g/dL (31-35); MEAN CORPUSCULAR VOLUME 114.1 fL (81-99); MONOCYTES # (AUTO) 0.3 (0.2-0.8); MONOCYTES % 4.6 % (4.4-11.3); NEUTROPHILS # (AUTO) 5.7 (2.1-6.9); NEUTROPHILS % 88.1 % (38.7-80.0); PLATELET COUNT 370 x10e3/uL (140-360); RED BLOOD COUNT 2.27 x10e6/uL (3.6-5.1); RED CELL DISTRIBUTION WIDTH 17.8 % (11.7-14.4)
[2020-04-20] MEDS: LORAZEPAM INJ 2 MG/ML VIAL IV PRN (07:39)
[2020-04-20] MEDS: CYANOCOBALAMIN INJ 1,000 MCG/ML VIAL IM SCH (08:32)
[2020-04-20] MEDS: CHLORDIAZEPOXIDE HCL 10 MG CAP PO SCH ×3 (08:32→20:50)
[2020-04-20] MEDS: DOCUSATE SODIUM 100 MG CAP PO SCH ×2 (08:32→16:27)
[2020-04-20] MEDS: FOLIC ACID 1 MG TAB PO SCH (08:32)
[2020-04-20] MEDS: SUCRALFATE 1 GM TAB PO SCH ×4 (08:32→20:50)
--- NOTE | 2020-04-20 08:32 | NUR ---
HEMATOLOGY/ONCOLOGY PROGRESS NOTE 04/19/20: Reason for Consult: Macrocytic anemia HPI: Patient anxious this morning requesting morning meds, nurse at bedside. RUE doppler negative for DVT. REVIEW OF SYSTEMS: 12 point ROS negative unless otherwise stated in HPI. PHYSICAL EXAM: Vitals: Reviewed as per EMR General: Awake, alert, NAD. HEENT: NC, AT Neck: Supple Respiratory: Decreased breath sounds bilaterally CV: Regular rate, rhythm Abdomen: Soft, non-tender Neuro: Awake, alert LABORATORY/RADIOLOGY DATA: 04/20/20: WBC: 6.50 Hgb: 8.0 Hct: 25.9 Platelet: 370 CXR 04/19/2020: Patchy opacities at the lung bases, right greater than left, new since 04/14/2020. Findings can be seen in patients with aspiration or multifocal pneumonia. ASSESSMENT AND PLAN: Ms. Pascal is a 59-year-old female with past medical history of hypertensions, COPD who presented due to inability to ambulate, numbness/tingling in the lower extremities, reported syncopal episode several da ys ago. She also reports intermittent diarrhea for past three months. Workup in the ED included CT brain and CT C-spine negative for acute pathology. Laboratory analysis revealed severely low potassium. She was subsequently admitted for further management with pulmonary and nephrology consulted. Patient noted to have worsening anemia with significant macrocytosis. Hematology/Oncology has been consulted to assist with the management. 1. Anemia: Macrocytosis likely secondary to alcohol abuse and bone marrow suppression. Anemia panel appears predominantly AOCD with noted elevated iron percent saturation possibly due to liver disease/alcohol abuse. Elevated reticul ocyte count and LDH, haptoglobin level normal, does not appear hemolytic component. B12 level on low end of normal, continue on B12 replacement with GI on board. S/p 1 unit PRBC transfused. FOBT positive, s/p EGD revealed gastritis and gastric ulcer. Will follow-up biopsy results. Hemoglobin stable. GI on board. Monitor for now. 2. Thrombocytosis: Mild. Likely reactive. Counts improving. Will monitor for now. 3. RUE swelling: Improved. Venous doppler US negative for DVT. Monitor. 4. Transaminitis: No previous reported history of liver cirrhosis, though patient with reported alcohol abuse. Acute hepatitis panel negative. Abdominal US revealed steatotic and enlarged liver without evidence or cirrhosis. Will follow-up hemochromatosis workup as per #1 as well. LFTs improving. Monitor. 5. Weakness/UTI: Possibly secondary to diarrhea/electrolyte abnormalities in combination with UTI. CT brain negative for acute pathology. Urine culture positive for enterococcus aerogenes, off antibiotics. Managed per primary team. 6. Hypokalemia: RESOLVED. Nephrology on board. 7. DVT Proph: SCDs for now secondary to anemia. If hemoglobin remains stable, will consider starting chemical prophylaxis with Lovenox. 8. Dispo: Per primary, clear for DC from heme/onc standpoint. Above plan discussed with Dr. Kristan Lucero. Thank you for the consult. I will be available. Please call with questions.
[2020-04-20] MEDS: BENZONATATE 100 MG CAP PO SCH ×3 (08:33→20:51)
[2020-04-20] MEDS: CEFEPIME 1GM/NS 0.9% 50 ML 50 ML IV SCH (08:33)
[2020-04-20] MEDS: PANTOPRAZOLE SOD 40 MG TABEC PO SCH ×2 (08:33→20:50)
[2020-04-20] MEDS: ALLOPURINOL 300 MG TAB PO SCH (08:33)
[2020-04-20] MEDS: NIFEDIPINE CR 30 MG TAB PO SCH ×2 (08:33→20:50)
[2020-04-20] MEDS: THIAMINE HCL 100 MG TAB PO SCH (08:33)
[2020-04-20 09:02] LABS: ALANINE AMINOTRANSFERASE 33 IU/L (0-55); ALBUMIN 3.1 g/dL (3.5-5.0); ALBUMIN/GLOBULIN RATIO 1.4 (0.8-2.0); ALKALINE PHOSPHATASE 127 IU/L (40-150); ANION GAP 13.9 mmol/L (8-16); BLOOD UREA NITROGEN 8 mg/dL (7-26); BUN/CREATININE RATIO 13 (6-25); CALCIUM 7.8 mg/dL (8.4-10.2); CARBON DIOXIDE 22 mmol/L (22-29); CHLORIDE 112 mmol/L (98-107); EST GLOMERULAR FILTRATION RATE > 60 ML/MIN (60-); GLUCOSE 131 mg/dL (74-118); POTASSIUM 3.9 mmol/L (3.5-5.1); SODIUM 144 mmol/L (136-145)
[2020-04-20] MEDS: FLUCONAZOLE 200 MG/100 ML 100 ML IV SCH (09:46)
[2020-04-20] MEDS: FUROSEMIDE INJ 10 MG/ML 4 ML VIAL IV SCH (17:16)
[2020-04-21] VITALS (7 sets, daily range): BP systolic 96–124; BP diastolic 72–107
[2020-04-21] MEDS: ALBUTEROL/IPRATROPIUM 3 ML NEB NEB SCH ×6 (00:40→20:50)
[2020-04-21] MEDS: FUROSEMIDE INJ 10 MG/ML 4 ML VIAL IV SCH ×2 (00:52→05:57)
[2020-04-21] MEDS: LORAZEPAM INJ 2 MG/ML VIAL IV PRN ×2 (00:52→08:18)
--- NOTE | 2020-04-21 03:26 | NUR ---
Date of Service: 04/20/2020 PRIMARY CARE PHYSICIAN: Jack Newman M.D. ATTENDING PHYSICIAN: Adan De Santiago M.D. CONSULTING PHYSICIANS: 1. Denise Vail M.D., Nephrology. 2. Kristan Luecro M.D., Hematology-Oncology. 3. Jack Newman M.D., Pulmonology. 4. Domenico Meyer M.D., Gastroenterology. 5. Selina Moody M.D., Cardiology RECENT EVENTS: 04/19 The patient received Solu-Medrol this afternoon due to difficulty breathing and shortness of breath; stat portable chest x-ray showed possible aspiration pneumonia. ROS: "+Coughing fits" with associated +HAs. Cepacol is helping sore throat. Six diarrhea stools on 04/14, no diarrhea today. +Severe weakness. OOB, BRP, ambulates well with PT. Good appetite. Left large toe with less pain; decreased swelling. SOB stable. OBJECTIVE: PHYSICAL EXAMINATION: VITAL SIGNS: Temperature 97.7, pulse 118, 148/96, respirations 20, and SpO2 98%. GENERAL: Supine, in no acute distress, generalized weakness. LUNGS: Clear to auscultation. Respiratory pattern even and unlabored. Supplemental oxygen 4 lpm via NC. HEENT: EOMI. NECK: Supple. No thyromegaly, lymphadenopathy, or JVD. CARDIOVASCULAR: Regular rate and rhythm, without murmur. Rt PICC. ABDOMEN: Bowel sounds positive. Soft, nontender. No obvious distention. No guarding. EXTREMITIES: Without pitting edema. No clubbing, cyanosis, or marked swelling of legs. Large left toe tenderness noted at the first metatarsophalangeal joint. RUE swollen, +hematoma Rt forearm. NEUROLOGIC: GCS 15, nonfocal. DIAGNOSTIC STUDIES: LABORATORY DATA: Reviewed. 04/20 H/H 8.0/25.9, K=3.9, BUN/Cr=8/0.6 04/19 H/H 7.6/23.7 04/18 Potassium 3.9, BUN 6, Cr 0.59 04/17 WBC 11.2 (& on Prednisone), H/H 8.3/26.1 04/16 WBC 9.23, H/H 8.1/25.4, Platelets 378. Sodium 139, potassium 3.2, chloride 100, serum CO2 28, BUN < 5, Cr 0.54, glucose 88, magnesium 1.6. CK 2677 (3091) Renin & Aldosterone pending. UA: pH 7, specific gravity 1.02 04/15 hemoglobin 7.3 (7.9), hematocrit 22.3 (24.3), platelets 411 (454) Sodium 142, potassium 2.3 (2.2), chloride 100, CO2 of 30 (27), BUN <5, creatinine 0.57, est GFR >60, glucose 97, calcium 7.1, phosphorus 3.4 (2.0), and magnesium 2.1 (1.7). Total bilirubin 0.5, AST 85 (94), ALT 27, alkaline phosphatase 160 (176) 04/15 Urine C/S: (Final): MDR Enterobacter Erogenes URINE CULTURE Final Organism 1 ENTEROBACTER AEROGENES COLONY COUNT >=100,000 cfu/ml ENT AEROGE M.I.C. RX --------- ---- TRIMETHOPRIM/SULFAMETHOXAZOLE <=/ S AMPICILLIN 16 R* AMPICILLIN/SULBACTAM(UNASYN). <=8/ R* AZTREONAM <=4 S CEFAZOLIN (ANCEF) >16 R CEFOTAXIME (CLAFORAN) <=2 S CEFTAZIDIME <=1 S CEFTRIAXONE (ROCEPHIN) <=1 S CEFEPIME (MAXIPIME) <=4 S CEFUROXIME <=4 R* CIPROFLOXACIN (CIPRO) <=1 S ERTAPENEM (INVANZ) <=1 S GENTAMICIN (GARAMYCIN) <=4 S IMIPENEM (PRIMAXIN) <=1 S LEVOFLOXACIN (LEVAQUIN) <=2 S MEROPENEM (MERREM) <=1 S NITROFURANTOIN (MACRODANTIN) 64 I TOBRAMYCIN <=4 S AMIKACIN <=16 S PIPERACILLIN/TAZOBACT (ZOSYN) <=16 S 04/15 FOBT+ 04/15 Hepatitis Panel pending 04/14 Uric acid 10.8, TSH 0.166 04/13 UA: specific gravity 1.01, pH 6, urobilinogen 0.2, trace of leukocyte esterase, 6-8 rbc's, 0-5 wbc's. 04/13 Coronavirus PCR negative. IMAGING/OTHER: 04/19 CXR: Patchy opacities at the lung bases, right greater than left, new since 04/14/2020. Findings can be seen in patients with aspiration or multifocal pneumonia. 04/15 US Liver: Steatotic & enlarged liver without sonographic evidence of cirrhosis. 04/[address]: Marie. 04/14 CXR: 1. Right PICC which terminates at the distal SVC. 2. No focal consolidation, pleural effusion or pneumothorax. 04/14 Bilateral Carotid Doppler US preliminary results: possible evidence of left carotid stenosis at ICA 04/14 Left Foot X-ray: No acute radiographic abnormality. 04/13 CT of the brain: 1. Mild left periorbital soft tissue edema. No acute calvarial fracture. 2. Suboptimal evaluation due to motion artifacts, despite the limitation no gross acute intracranial abnormality. 3. Mild generalized cerebral volume loss. 04/13 CT of the cervical spine: 1. No acute cervical spine fracture or dislocation. 2. Ligament, spinal cord and or vascular abnormalities cannot be excluded on the basis of this examination. 3. Mild cervical spondylosis 04/13 CXR: no acute thoracic radiographic abnormality. 04/13 Echocardiogram (Final Results): EF 60-65%, diastolic filling pattern indicates impaired relaxation ASSESSMENT AND PLAN: 1. Severe Hypokalemia with leg paralysis: -Admission potassium level was 1.4. Potassium level 04/20= 3.9. -defer to Nephrology 2. Persistent Diarrhea with Metabolic Alkalosis & Severe Electrolyte Imbalances: -Serum bicarbonate 04/20= 22 -Diarrhea off and on for the past 3 months; overall improving -Gastroenterology following -Hypomagnesemia, Hypophosphatemia, Hypochloremia, Hypocalcemia improving -Electrolyte repletion per Nephrology 3. Syncope on 04/09 with Fall, Contusion of the head, Acute Rhabdomyolysis, Left Foot Pain: -Monitor orthostatic vital signs as the patient tolerates; initially unable to stand -CT Brain, CT of the cervical spine results as above -Awaiting final Bilateral Carotid Doppler US; interpreting Construction Carpenter may not have been assigned when ordered in ED. Cardiology consulted. Final Echocardiogram results as interpreted by Dr. Moody listed above. -Syncope & Falls may be linked to Alcoholism -Pain control 4. Alcoholism, Beer Potomania, Steatotic Liver, Hepatomegaly, Transaminitis: -Encourage cessation from alcohol -MVI, Thiamine, Folic Acid -Ativan p.r.n. for possible delirium tremens signs and symptoms. -Urine specific gravity 1.015 -Monitor LFTs, Acute Hepatitis Panel pending, Gastroenterology following 5. Macrocytic Anemia with positive FOBT: -Hematology-Oncology & Gastroenterology following. -Elevated iron sat; Hemochromatosis lab pending -Low Vitamin B12, supplemented 6. Severe Weakness both legs, Ambulatory Dysfunction, history of falls: -Weakness likely due to alkalosis/electrolytes/alcoholism -PT eval/treat. Maintain Fall Precautions 7. HTN with Diastolic CHF: -Currently on Bumex, prn IV metoprolol tartrate 2.5 mg q 6 hours for SBP > 150. -Hypotension early in hospitalization has improved 8. Acute vs Chronic (vs Acute on Chronic) Diastolic CHF: -Echo showed EF 60-65%, diastolic filling pattern indicates impaired relaxation 9. COPD with acute exacerbation in an Active Smoker: -Pulmonology following -Mild wheezing; +audible without use of a stethescope early afternoon of 04/19, 60mg Solumedrol IV once -home dose Symbicort, Rescue INH -Duonebs q 4 hrs -Solumedrol 80mg IV once 04/14 -Encourage Cessation from smoking 10. Aspiration Pneumonia: -Case discussed with Dr. Newman 04/19. Vancomycin 1 gram IV x1 dose along with cefepime. -Continue bronchodilators & oxygen. -Continue with speech pathology evaluation. -F/U on any CXR & Chest CT results. 11. Thrombocytosis: -Platelets 370, trend shows improvement -defer to Hematology-Oncology. 12. Gout: -04/14 Uric acid 10.8 -Large left toe tenderness noted at the first metatarsophalangeal joint. -Colchicine 0.6mg (2) on 04/15, then on 04/16 started Allopurinol 300mg daily & Prednisone 20mg TID x 6 doses 13. Acute UTI with MDR Enterobacter Erogenes, POA, with Acute Dehydration: -UA with trace of leukocyte esterase -WBC 6.5, monitor -Continue Cefepime -IV Fluids as per Nephrology orders PPX: Pepcid, SCDs Discharge planning: Overall DC Plan: Home with Home Health Per PT note as copied Radha Batim: Patient overall tolerated PT well. Ambulates safely with rolling walker for 100 ft and 300 ft with a standing rest break. Attempted gait without walker but patient unsteady and loss of balance. Eventually patient holding onto hallway railing to ambulate. At this time, needs to continue to ambulate with a walker but will wean from walker when appropriate. Will continue to benefit from PT. Colonoscopy is planned on an outpatient basis. BILLING CODE: [id number], time spent 45 min
[2020-04-21 06:58] LABS: ALANINE AMINOTRANSFERASE 27 IU/L (0-55); ALBUMIN 2.9 g/dL (3.5-5.0); ALBUMIN/GLOBULIN RATIO 1.5 (0.8-2.0); ALKALINE PHOSPHATASE 99 IU/L (40-150); ANION GAP 12.9 mmol/L (8-16); BLOOD UREA NITROGEN 6 mg/dL (7-26); BUN/CREATININE RATIO 10 (6-25); CALCIUM 7.6 mg/dL (8.4-10.2); CARBON DIOXIDE 29 mmol/L (22-29); CHLORIDE 107 mmol/L (98-107); EST GLOMERULAR FILTRATION RATE > 60 ML/MIN (60-); GLUCOSE 81 mg/dL (74-118); SODIUM 146 mmol/L (136-145)
[2020-04-21 07:07] LABS: POTASSIUM 2.9 mmol/L (3.5-5.1)
[2020-04-21] MEDS: METOPROLOL TARTRATE INJ 1 MG/ML VIAL IV PRN ×2 (07:25→14:22)
[2020-04-21] MEDS: BUDESONIDE/FORMOTEROL FUMARATE 80/4.5MCG 6.9 GM INH AEROSOL IH SCH ×2 (07:29→20:50)
[2020-04-21] MEDS ORDERED: POTASSIUM CHLORIDE 20 MEQ TAB CR PO STA (07:53)
[2020-04-21] MEDS: DOCUSATE SODIUM 100 MG CAP PO SCH ×2 (08:17→16:30)
[2020-04-21] MEDS: ALLOPURINOL 300 MG TAB PO SCH (08:17)
[2020-04-21] MEDS: CHLORDIAZEPOXIDE HCL 10 MG CAP PO SCH ×3 (08:17→20:50)
[2020-04-21] MEDS: THIAMINE HCL 100 MG TAB PO SCH (08:17)
[2020-04-21] MEDS: BENZONATATE 100 MG CAP PO SCH ×3 (08:17→20:50)
[2020-04-21] MEDS: PANTOPRAZOLE SOD 40 MG TABEC PO SCH ×2 (08:17→20:50)
[2020-04-21] MEDS: NIFEDIPINE CR 30 MG TAB PO SCH (08:17)
[2020-04-21] MEDS: FOLIC ACID 1 MG TAB PO SCH (08:17)
[2020-04-21] MEDS: SUCRALFATE 1 GM TAB PO SCH ×4 (08:17→20:50)
--- NOTE | 2020-04-21 08:27 | NUR ---
PATIENT'S HEART RATE HAS BEEN SUSTAINING BETWEEN 150-[address] Lakisha FAITH AND GOT ORDERS TO GIVE DIGOXIN AFTER REPLACING THE POTASSIUM THAT WAS ORDERED BY ATTENDING.
[2020-04-21] MEDS ORDERED: SODIUM CHLORIDE 0.9% 250ML 250 ML ONE (08:39)
[2020-04-21] MEDS: CYANOCOBALAMIN INJ 1,000 MCG/ML VIAL IM SCH (09:00)
[2020-04-21] MEDS: CEFEPIME 1GM/NS 0.9% 50 ML 50 ML IV SCH (09:00)
[2020-04-21] MEDS ORDERED: DIGOXIN INJ 0.25 MG/ML 2 ML AMP IV ONE (09:15)
[2020-04-21] MEDS: FLUCONAZOLE 200 MG/100 ML 100 ML IV SCH (09:22)
[2020-04-21] MEDS ORDERED: POTASSIUM CHLORIDE 20 MEQ TAB CR PO ONE (10:00)
--- NOTE | 2020-04-21 11:46 | NUR ---
NO CHANGE IN PATIENT'S HEART RATE S/P POTASSIUM REPLACEMENT, METOPROLOL AND DIGOXIN 500MCG GIVEN. PAGED MARITIME OFFICER TO UPDATE. WAITING FOR CALL BACK
[2020-04-21] MEDS: ACETAMINOPHEN 325 MG TAB PO PRN (13:24)
[2020-04-21] MEDS: ACETAMINOPHEN/CODEINE 300MG - 30MG TAB PO PRN ×2 (14:22→22:10)
[2020-04-21] MEDS: ONDANSETRON HCL INJ 2MG/ML 2ML 2 MG/ML VIAL IV PRN ×2 (14:22→22:10)
--- NOTE | 2020-04-21 16:15 | NUR ---
SPOKE WITH PT ABOUT ROLLING WALKER ORDER, LET HER KNOW I CAN CALL A DME COMPANY AND GET FOR HER BUT SHE WILL HAVE TO PAY DAMON SARAVIA OR SHE CAN GO TO [employer] AND PURCHASE ONE FOR HERSELF AT A LOWER COST. SHE STATES SHE WILL GET ONE HERSELF AND DECLINED US GETTING HER ONE. SHE TOLD ME SHE WAS TOLD SHE WILL NEED OXYGEN AT HOME, LET HER KNOW THAT THE COMPANY WILL NEED A CREDIT CARD ON FILE AND GAVE PRICES AND LET HER KNOW THAT SHE WILL HAVE TO PAY UPFRONT TO BE ABLE TO GET SET UP. SPOKE WITH NURSE AND PULM . NURSE WILL SEE ABOUT WEANING HER OR IF SHE QUALIFIES FOR IT THEN IS SHE DOES THEN CASE MANAGEMENT WILL FOLLOW UP WHEN THEY GET THE ORDER.
[2020-04-21] MEDS: METOPROLOL TARTRATE 50 MG TAB PO SCH (16:30)
[2020-04-22] VITALS: BP 118/79
[2020-04-22] MEDS: ALBUTEROL/IPRATROPIUM 3 ML NEB NEB SCH ×4 (03:00→15:00)
[2020-04-22 04:00] VITALS: BP 126/64
[2020-04-22] MEDS: METOPROLOL TARTRATE 50 MG TAB PO SCH ×4 (05:24→16:59)
[2020-04-22 06:13] LABS: BASOPHILS # (AUTO) 0.1 (0.0-0.1); BASOPHILS % 1.1 % (0.0-1.0); EOSINOPHILS # (AUTO) 0.2 (0.0-0.4); EOSINOPHILS % 3.4 % (0.0-6.0); HEMATOCRIT 25.5 % (34.2-44.1); HEMOGLOBIN 7.8 g/dL (12.0-16.0); LYMPHOCYTES # (AUTO) 1.3 (1.0-3.2); LYMPHOCYTES % 20.7 % (18.0-39.1); MEAN CORPUSCULAR HEMOGLOBIN 34.4 pg (28-32); MEAN CORPUSCULAR HGB CONC 30.6 g/dL (31-35); MEAN CORPUSCULAR VOLUME 112.3 fL (81-99); MONOCYTES # (AUTO) 0.5 (0.2-0.8); MONOCYTES % 7.6 % (4.4-11.3); NEUTROPHILS # (AUTO) 4.3 (2.1-6.9); NEUTROPHILS % 66.7 % (38.7-80.0); PLATELET COUNT 389 x10e3/uL (140-360); RED BLOOD COUNT 2.27 x10e6/uL (3.6-5.1); RED CELL DISTRIBUTION WIDTH 17.4 % (11.7-14.4)
[2020-04-22] MEDS: ONDANSETRON HCL INJ 2MG/ML 2ML 2 MG/ML VIAL IV PRN (06:22)
[2020-04-22 06:43] LABS: ALANINE AMINOTRANSFERASE 24 IU/L (0-55); ALBUMIN 2.9 g/dL (3.5-5.0); ALBUMIN/GLOBULIN RATIO 1.4 (0.8-2.0); ALKALINE PHOSPHATASE 101 IU/L (40-150); ANION GAP 11.2 mmol/L (8-16); BLOOD UREA NITROGEN 10 mg/dL (7-26); BUN/CREATININE RATIO 15 (6-25); CARBON DIOXIDE 31 mmol/L (22-29); CHLORIDE 106 mmol/L (98-107); CREATININE, SERUM 0.65 mg/dL (0.57-1.11); EST GLOMERULAR FILTRATION RATE > 60 ML/MIN (60-); GLUCOSE 81 mg/dL (74-118); MAGNESIUM 1.6 MG/DL (1.3-2.1); POTASSIUM 4.2 mmol/L (3.5-5.1); SODIUM 144 mmol/L (136-145)
--- NOTE | 2020-04-22 06:50 | NUR ---
Received shift report from night nurse. Pt is resting in bed, complaints of nausea/ vomiting. Pt call light and table is in reach, side rails x2. will continue to monitor pt.
[2020-04-22] MEDS: BUDESONIDE/FORMOTEROL FUMARATE 80/4.5MCG 6.9 GM INH AEROSOL IH SCH (07:35)
[2020-04-22 08:33] VITALS: BP 142/84
[2020-04-22 09:00] VITALS: BP 142/84
[2020-04-22] MEDS ORDERED: DIGOXIN 0.125 MG TAB PO SCH (09:00)
[2020-04-22] MEDS: SUCRALFATE 1 GM TAB PO SCH ×3 (09:17→16:41)
[2020-04-22] MEDS: CYANOCOBALAMIN INJ 1,000 MCG/ML VIAL IM SCH (09:17)
[2020-04-22] MEDS: DOCUSATE SODIUM 100 MG CAP PO SCH ×2 (09:17→16:47)
[2020-04-22] MEDS: FOLIC ACID 1 MG TAB PO SCH (09:17)
[2020-04-22] MEDS: CHLORDIAZEPOXIDE HCL 10 MG CAP PO SCH ×2 (09:18→14:37)
[2020-04-22] MEDS: THIAMINE HCL 100 MG TAB PO SCH (09:18)
[2020-04-22] MEDS: FLUCONAZOLE 200 MG/100 ML 100 ML IV SCH (09:18)
[2020-04-22] MEDS: BENZONATATE 100 MG CAP PO SCH ×2 (09:18→14:37)
[2020-04-22] MEDS: PANTOPRAZOLE SOD 40 MG TABEC PO SCH (09:18)
[2020-04-22] MEDS: ALLOPURINOL 300 MG TAB PO SCH (09:18)
[2020-04-22] MEDS: CEFEPIME 1GM/NS 0.9% 50 ML 50 ML IV SCH (10:38)
[2020-04-22] MEDS ORDERED: MAGNESIUM SULFATE 2GM/50ML 50 ML IV ONE (11:30)
[2020-04-22 12:05] VITALS: BP 134/88
[2020-04-22] MEDS ORDERED: DIPHENOXYLATE/ATROPINE TAB PO NR (14:15)
[2020-04-22 16:06] VITALS: BP 118/70
[2020-04-22] MEDS ORDERED: OMEPRAZOLE40 MG PO (16:33)
[2020-04-22] MEDS ORDERED: DIGOXIN125 MCG PO (16:33)
[2020-04-22] MEDS ORDERED: METOPROLOL TART50 MG PO (16:33)
[2020-04-22] MEDS ORDERED: FERROUS SULFAT325 MG PO (16:39)
--- NOTE | 2020-04-22 16:50 | NUR ---
PER DR. OROSCO [facility] HOME 02 EVAL. PATIENT IS DISCHARGING HOME TODAY.
--- NOTE | 2020-04-22 17:40 | NUR ---
DISCHARGE ORDER WAS RECEIVED FROM MD. PT WAS GIVEN DISCHARGE INSTRUCTIONS AND PRESCRIPTIONS. R UPPER PICC LINE WAS D/C, TIP INTACT NO REDNESS OR SWELLING PRESENT. PT WAS DISCHARGE HOME.
--- NOTE | 2020-04-22 17:50 | NUR ---
PT TRANSPORTED BY WHEELCHAIR TO PRIVATE VEHICLE. TRANSITION OF CARE FOLDER AND PERSONAL ITEMS WERE GIVEN.
[2020-04-22] MEDS ORDERED: METOCLOPRAMIDE HCL 10 MG/2ML VIAL IV SCH (18:00)
--- NOTE | 2020-04-22 20:43 | NUR ---
HEMATOLOGY/ONCOLOGY PROGRESS NOTE 04/19/20: Reason for Consult: Macrocytic anemia HPI: Patient resting comfortably in bed,c/o nausea/vomiting. REVIEW OF SYSTEMS: 12 point ROS negative unless otherwise stated in HPI. PHYSICAL EXAM: Vitals: Reviewed as per EMR General: Awake, alert, NAD. HEENT: NC, AT Neck: Supple Respiratory: Decreased breath sounds bilaterally CV: Regular rate, rhythm Abdomen: Soft, non-tender Neuro: Awake, alert ASSESSMENT AND PLAN: Ms. Pascal is a 59-year-old female with past medical history of hypertensions, COPD who presented due to inability to ambulate, numbness/tingling in the lower extremities, reported syncopal episode several da ys ago. She also reports intermittent diarrhea for past three months. Workup in the ED included CT brain and CT C-spine negative for acute pathology. Laboratory analysis revealed severely low potassium. She was subsequently admitt ed for further management with pulmonary and nephrology consulted. Patient noted to have worsening anemia with significant macrocytosis. Hematology/Oncology has been consulted to assist with the management. 1. Anemia: Macrocytosis likely secondary to alcohol abuse and bone marrow suppression. Anemia panel appears predominantly AOCD with noted elevated iron percent saturation possibly due to liver disease/alcohol abuse. Elevated reticul ocyte count and LDH, haptoglobin level normal, does not appear hemolytic component. B12 level on low end of normal, continue on B12 replacement with GI on board. S/p 1 unit PRBC transfused. FOBT positive, s/p EGD revealed gastritis and gastric ulcer. Biopsy results negative for malignancy. GI on board. Monitor for now. 2. Thrombocytosis: Mild. Likely reactive. Counts improving. Will monitor for now. 3. RUE swelling: Improved. Venous doppler US negative for DVT. Monitor. 4. Transaminitis: No previous reported history of liver cirrhosis, though patient with reported alcohol abuse. Acute hepatitis panel negative. Abdominal US revealed steatotic and enlarged liver without evidence or cirrhosis. Will follow-up hemochromatosis workup as per #1 as well. LFTs improving. Monitor. 5. Weakness/UTI: Possibly secondary to diarrhea/electrolyte abnormalities in combination with UTI. CT brain negative for acute pathology. Urine culture positive for enterococcus aerogenes, off antibiotics. Managed per primary team. 6. Hypokalemia: repletion per primary/ Nephrology on board. 7. Tachycardia: Intermittent. Uncertain etiology. Started on Digoxin. Per primary. DVT Proph: SCDs for now, consider starting on AC for DVT proph once cleared by other teams. 8. Dispo: Per primary, clear for DC from heme/onc standpoint. Thank you for the consult. I will be available. Please call with questions.
--- NOTE | 2020-04-23 00:18 | Discharge Summary ---
PRIMARY CARE PROVIDER: Jack Newman MD ADMITTING DIAGNOSES: 1. Severe life-threatening hypokalemia with a level of 1.4. 2. Severe weakness both legs with ambulatory dysfunction secondary to the hypokalemia. 3. Syncope prior to admission with contusion of the head and rhabdomyolysis. 4. Urinary tract infection. 5. Microcytic anemia due to chronic GI blood loss. 6. Alcoholism. 7. Acute alcoholic hepatitis. 8. History of hypertension. 9. Chronic obstructive pulmonary disease with acute exacerbation. DISCHARGE DIAGNOSES: 1. Severe life-threatening hypokalemia with a level of 1.4. 2. Severe weakness both legs with ambulatory dysfunction secondary to the hypokalemia. 3. Syncope prior to admission with contusion of the head and rhabdomyolysis. 4. Urinary tract infection. 5. Microcytic anemia due to chronic GI blood loss. 6. Alcoholism. 7. Acute alcoholic hepatitis. 8. History of hypertension. 9. Chronic obstructive pulmonary disease with acute exacerbation. BRIEF HISTORY: Ms. Pascal is a 59-year-old lady presenting with what felt like paralysis of her legs and arms with tingling was found to have a potassium of 1.4 and was found to be in atrial fibrillation with a rapid ventricular response. Also found to be anemic with elevated CK consistent with rhabdomyolysis. HOSPITAL COURSE: The patient was admitted to the floor started on IV fluids of saline plus potassium. She was given 60 mEq in the emergency department with an additional 20 mEq in her IV fluids. Her hypokalemia resolved. Her ambulatory dysfunction improved. The patient developed atrial fibrillation with rapid ventricular response after being admitted. Cardiology saw the patient. She was started on digoxin and metoprolol, which controlled her rate. She remained in atrial fibrillation at the time of discharge, although anticoagulation was contraindicated due to the gastric ulcer. The patient did not require any transfusion. Her hemoglobin stayed between 7.3 and 8.2, it was 7.8 at the time of discharge. Her transaminases had improved prior to discharge. She had received some Librium for alcohol detox and a banana bag initially, the patient showed no signs of alcohol withdrawal the time of discharge. She was also treated for an acute exacerbation of COPD and possible aspiration pneumonia with IV cefepime and aggressive nebulizer treatments. The patient was initially hypotensive. Her lisinopril was held. Her blood pressure was 134/88 at the time of discharge with a pulse rate of 96. She will continue metoprolol 50 mg q.6 hours. She will restart her lisinopril, hydrochlorothiazide, omeprazole 40 mg twice daily, iron sulfate 325 mg daily, and she can resume a regular diet and activity and she will follow up with her PCP within 2 weeks. MD CHEIKH Long/JUS /[id number]
== END 2020-04-22 17:50 | disposition home or self-care (01) | DRG 377 ==
LOC: ER 21:50 → ERHOLD 22:53 → MED/SURG3 23:14
PROVIDERS: ADMIT Internal Medicine; ATTEND Internal Medicine
PROC: 02HV33Z Insertion of Infusion Device into Superior Vena Cava, Percutaneous Approach (ICD-10-PCS; 2020-04-14)
PROC: B548ZZA Ultrasonography of Superior Vena Cava, Guidance (ICD-10-PCS; 2020-04-14)
PROC: 30233N1 Transfusion of Nonautologous Red Blood Cells into Peripheral Vein, Percutaneous Approach (ICD-10-PCS; 2020-04-15)
PROC: 0DB68ZX Excision of Stomach, Via Natural or Artificial Opening Endoscopic, Diagnostic (ICD-10-PCS; 2020-04-19)
PROC: 0DD58ZX Extraction of Esophagus, Via Natural or Artificial Opening Endoscopic, Diagnostic (ICD-10-PCS; 2020-04-19)
PROC: 0DB98ZX Excision of Duodenum, Via Natural or Artificial Opening Endoscopic, Diagnostic (ICD-10-PCS; principal; 2020-04-19 08:50)
DX: K25.4 Chronic or unspecified gastric ulcer with hemorrhage (principal); I50.33 Acute on chronic diastolic (congestive) heart failure; J69.0 Pneumonitis due to inhalation of food and vomit; M62.82 Rhabdomyolysis; N39.0 Urinary tract infection, site not specified; E87.4 Mixed disorder of acid-base balance; J44.1 Chronic obstructive pulmonary disease with (acute) exacerbation; Z16.24 Resistance to multiple antibiotics; E87.6 Hypokalemia; R55 Syncope and collapse; S00.83XA Contusion of other part of head, initial encounter; S05.12XA Contusion of eyeball and orbital tissues, left eye, initial encounter; W18.39XA Other fall on same level, initial encounter; J44.9 Chronic obstructive pulmonary disease, unspecified; F17.210 Nicotine dependence, cigarettes, uncomplicated; Z82.49 Family history of ischemic heart disease and other diseases of the circulatory system; I95.9 Hypotension, unspecified; F10.20 Alcohol dependence, uncomplicated; D47.3 Essential (hemorrhagic) thrombocythemia; K29.70 Gastritis, unspecified, without bleeding; K44.9 Diaphragmatic hernia without obstruction or gangrene; D17.79 Benign lipomatous neoplasm of other sites; Z11.59 Encounter for screening for other viral diseases; D53.9 Nutritional anemia, unspecified; E83.39 Other disorders of phosphorus metabolism; E83.42 Hypomagnesemia; E83.51 Hypocalcemia; E87.8 Other disorders of electrolyte and fluid balance, not elsewhere classified; M10.9 Gout, unspecified; E86.0 Dehydration; I11.0 Hypertensive heart disease with heart failure; B96.89 Other specified bacterial agents as the cause of diseases classified elsewhere; K70.10 Alcoholic hepatitis without ascites; I48.91 Unspecified atrial fibrillation
CPT/HCPCS: 36415; 36569; 43239; 70450; 71045; 72125; 76705; 80048; 80053; 80061; 81001; 82088; 82270; 82533; 82550; 82553; 82607; 82728; 82746; 82948; 83010; 83036; 83540; 83735; 83880; 84100; 84132; 84133; 84244; 84436; 84439; 84443; 84466; 84479; 84484; 84550; 85025; 85045; 85610; 86850; 86900; 86920; 87086; 87106; 87186; 87205; 88305; 88312; 93005; 93306; 93880; 93971; 94640; 94664; 97139; 99285; J0610; J0692; J1160; J1450; J1610; J1940; J2060; J2250; J2405; J2765; J2930; J3010; J3370; J3411; J3420; J3475; J3480; J7030; J7050; J7070; J7512; P9016; U0002

== ENCOUNTER 2022-05-26 04:22 | Inpatient (IN) | payer MEDICARE ==
[2022-05-26] VITALS (16 sets, daily range): BP systolic 145–182; BP diastolic 78–98
[~2022-05-26] VITALS: Ht 165.1 cm; Wt 76.9 kg
[~2022-05-26 04:22] MED LIST: ALBUTEROL0.63 MG/3 INH; DIGOXIN125 MCG PO; FERROUS SULFAT325 MG PO; LISINOPRIL-HCT1 EACH PO; METOPROLOL TART50 MG PO; OMEPRAZOLE40 MG PO; SYMBICORT 80-10.2 GM INH
[2022-05-26 05:04] LABS: BASOPHILS # (AUTO) 0.1 (0.0-0.1); BASOPHILS % 0.5 % (0.0-1.0); EOSINOPHILS % 0.2 % (0.0-6.0); HEMATOCRIT 32.8 % (34.2-44.1); HEMOGLOBIN 10.3 g/dL (12.0-16.0); LYMPHOCYTES # (AUTO) 0.5 (1.0-3.2); LYMPHOCYTES % 3.8 % (18.0-39.1); MEAN CORPUSCULAR HEMOGLOBIN 31.8 pg (28-32); MEAN CORPUSCULAR HGB CONC 31.4 g/dL (31-35); MEAN CORPUSCULAR VOLUME 101.2 fL (81-99); MONOCYTES # (AUTO) 0.7 (0.2-0.8); MONOCYTES % 5.1 % (4.4-11.3); NEUTROPHILS # (AUTO) 11.5 (2.1-6.9); PLATELET COUNT 489 x10e3/uL (140-360); RED BLOOD COUNT 3.24 x10e6/uL (3.6-5.1); RED CELL DISTRIBUTION WIDTH 23.5 % (11.7-14.4)
[2022-05-26 05:19] LABS: ALBUMIN 3.6 g/dL (3.5-5.0); ALBUMIN/GLOBULIN RATIO 1.2 (0.8-2.0); ANION GAP 24.8 mmol/L (8-16); CALCIUM 8.4 mg/dL (8.4-10.2); CREATININE, SERUM 0.72 mg/dL (0.57-1.11)
[2022-05-26] MEDS ORDERED: ONDANSETRON HCL INJ 2MG/ML 2ML 2 MG/ML VIAL IV STA (05:19)
[2022-05-26] MEDS ORDERED: Morphine 4mg INJECTION 4 MG/ML INJ IV STA ×2 (05:19→07:39)
[2022-05-26] MEDS ORDERED: SODIUM CHLORIDE 0.9% 1000ML 1,000 ML IV STA ×2 (05:19→07:28)
[2022-05-26 05:25] LABS: CREATINE KINASE MB 3.7 ng/mL (0-5.0)
[2022-05-26 05:26] LABS: POTASSIUM 2.8 mmol/L (3.5-5.1)
[2022-05-26 05:35] LABS: INR 1.01; PROTHROMBIN TIME 14.2 seconds (11.9-14.5)
[2022-05-26 05:36] LABS: PARTIAL THROMBOPLASTIN TIME 28.8 seconds (23.8-35.5)
[2022-05-26] MEDS ORDERED: Morphine 4mg INJECTION 4 MG/ML INJ ONE (05:40)
[2022-05-26] MEDS ORDERED: ONDANSETRON HCL INJ 2MG/ML 2ML 2 MG/ML VIAL ONE (05:40)
[2022-05-26] MEDS ORDERED: IOPAMIDOL 370 MG/ML 100 ML INFUS..BTL INJ ONE (05:55)
[2022-05-26] MEDS: POTASSIUM CHLORIDE 10MEQ/100ML 100 ML IV SCH ×4 (06:15→10:03)
[2022-05-26 07:23] LABS: AMPHETAMINES SCREEN,URINE NEGATIVE (NEGATIVE); BENZODIAZEPINES SCREEN,URINE NEGATIVE (NEGATIVE); PHENCYCLIDINE SCREEN,URINE NEGATIVE (NEGATIVE)
[2022-05-26 07:24] LABS: COLOR,URINE YELLOW (YELLOW); KETONES,URINE NEGATIVE (NEGATIVE); LEUKOCYTE ESTERASE ,URINE NEGATIVE (NEGATIVE); NITRITE,URINE NEGATIVE (NEGATIVE); PROTEIN,URINE DIPSTICK 1+ (NEGATIVE); URINE UROBILINOGEN 0.2 mg/dL (0.2 - 1)
[2022-05-26 07:25] LABS: RBC,URINE 0-5 /HPF (0-5); WBC,URINE (MAN) 0-5 /HPF (0-5)
[2022-05-26 07:26] LABS: BACTERIA,URINE RARE /HPF; CLARITY,URINE CLEAR (CLEAR); EPITHELIAL CELLS,URINE FEW /LPF
[2022-05-26] MEDS ORDERED: SODIUM CHLORIDE 0.9% 1000ML 1,000 ML ONE (07:45)
[2022-05-26] MEDS: ONDANSETRON HCL INJ 2MG/ML 2ML 2 MG/ML VIAL IV PRN (08:39)
[2022-05-26] MEDS ORDERED: SODIUM CHLORIDE 0.9% 1000ML 1,000 ML IV ONE (08:45)
[2022-05-26] MEDS ORDERED: ONDANSETRON HCL INJ 2MG/ML 2ML 2 MG/ML VIAL IV PRN (08:45)
[2022-05-26] MEDS ORDERED: DEXTROSE 5% 1,000 ML IV SCH (10:00)
[2022-05-26] MEDS: METRONIDAZOLE 500MG/NS 100ML 100 ML IV SCH ×3 (10:02→20:35)
[2022-05-26] MEDS: D5NS/KCL 20MEQ 1,000 ML IV SCH ×2 (10:03→17:52)
[2022-05-26] MEDS ORDERED: DESMOPRESSIN ACETATE 4 MCG/ML VIAL IV ONE (10:30)
[2022-05-26] MEDS: HYDRALAZINE HCL 20 MG/ML VIAL IV PRN ×2 (10:39→18:01)
[2022-05-26] MEDS: HYDROMORPHONE 1MG/1ML INJ IV PRN ×3 (11:02→19:45)
[2022-05-26] MEDS ORDERED: LORAZEPAM 1 MG TAB PO ONE (11:30)
[2022-05-26 12:08] LABS: CREATINE KINASE MB 11.6 ng/mL (0-5.0)
[2022-05-26] MEDS: VANCOMYCIN 250MG/5ML ORAL SOLN PO SCH ×2 (12:20→18:12)
[2022-05-26] MEDS: MULTIVITAMINS- 12 INJECTION 10 ML, FOLIC ACID MDV 1 MG, THIAMINE HCL INJ 100 MG in SODI... IV SCH ×2 (12:54→23:07)
[2022-05-26] MEDS ORDERED: ZOLOFT50 MG PO (14:52)
[2022-05-26] MEDS ORDERED: ASPIRIN81 MG PO (14:54)
[2022-05-26 18:45] LABS: CREATINE KINASE MB 16.2 ng/mL (0-5.0)
[2022-05-26] MEDS: ALBUTEROL/IPRATROPIUM 3 ML NEB NEB PRN (18:58)
[2022-05-26] MEDS: LORAZEPAM 0.5 MG TAB PO PRN (22:08)
[2022-05-27] VITALS (11 sets, daily range): BP systolic 52–170; BP diastolic 39–88
[2022-05-27] MEDS: VANCOMYCIN 250MG/5ML ORAL SOLN PO SCH ×4 (00:10→17:43)
[2022-05-27] MEDS: ALBUTEROL/IPRATROPIUM 3 ML NEB NEB PRN ×4 (00:16→17:41)
[2022-05-27] MEDS: HYDROMORPHONE 1MG/1ML INJ IV PRN ×6 (00:38→21:45)
[2022-05-27] MEDS ORDERED: DICYCLOMINE HCL 20 MG TAB PO ONE (02:30)
[2022-05-27] MEDS: DEXTROSE 5%/0.9% SOD CHL 1,000 ML IV SCH ×3 (02:59→23:55)
[2022-05-27] MEDS: METRONIDAZOLE 500MG/NS 100ML 100 ML IV SCH ×4 (03:08→20:24)
[2022-05-27] MEDS: LORAZEPAM 0.5 MG TAB PO PRN ×3 (04:16→23:28)
[2022-05-27 07:19] LABS: BASOPHILS # (AUTO) 0.1 (0.0-0.1); BASOPHILS % 0.6 % (0.0-1.0); EOSINOPHILS # (AUTO) 0.1 (0.0-0.4); EOSINOPHILS % 1.3 % (0.0-6.0); HEMATOCRIT 26.7 % (34.2-44.1); LYMPHOCYTES # (AUTO) 0.7 (1.0-3.2); LYMPHOCYTES % 8.4 % (18.0-39.1); MEAN CORPUSCULAR HGB CONC 29.6 g/dL (31-35); MEAN CORPUSCULAR VOLUME 108.1 fL (81-99); MONOCYTES # (AUTO) 0.5 (0.2-0.8); MONOCYTES % 5.7 % (4.4-11.3); NEUTROPHILS # (AUTO) 7.3 (2.1-6.9); PLATELET COUNT 294 x10e3/uL (140-360); RED BLOOD COUNT 2.47 x10e6/uL (3.6-5.1); RED CELL DISTRIBUTION WIDTH 23.8 % (11.7-14.4)
[2022-05-27 07:40] LABS: ALANINE AMINOTRANSFERASE 45 IU/L (0-55); ALBUMIN 2.9 g/dL (3.5-5.0); ALBUMIN/GLOBULIN RATIO 1.1 (0.8-2.0); ALKALINE PHOSPHATASE 148 IU/L (40-150); ANION GAP 11.8 mmol/L (8-16); BLOOD UREA NITROGEN < 5 mg/dL (7-26); CALCIUM 7.4 mg/dL (8.4-10.2); CARBON DIOXIDE 24 mmol/L (22-29); CHLORIDE 112 mmol/L (98-107); CREATININE, SERUM 0.65 mg/dL (0.57-1.11); GLUCOSE 101 mg/dL (74-118); LIPASE 14 U/L (8-78); SODIUM 145 mmol/L (136-145)
[2022-05-27 07:44] LABS: BUN/CREATININE RATIO 8 (6-25)
[2022-05-27 07:45] LABS: HEMOGLOBIN 7.9 g/dL (12.0-16.0); POTASSIUM 2.8 mmol/L (3.5-5.1)
[2022-05-27] MEDS: SUCRALFATE 1 GM TAB PO SCH ×4 (08:13→20:25)
[2022-05-27] MEDS: DICYCLOMINE HCL 20 MG TAB PO SCH ×4 (08:13→20:25)
[2022-05-27] MEDS ORDERED: MAGNESIUM SULFATE 2GM/50ML 50 ML IV ONE (08:30)
[2022-05-27] MEDS ORDERED: POTASSIUM CHLORIDE 20 MEQ TAB CR PO ONE ×2 (08:30→18:00)
[2022-05-27 08:31] LABS: CREATINE KINASE 582 IU/L (29-168)
[2022-05-27 08:39] LABS: ANISOCYTOSIS MODERATE; HYPOCHROMASIA MODERATE; PLATELET ESTIMATE ADEQUATE; PLATELET MORPHOLOGY COMMENT NORMAL; RBC MORPHOLOGY COMMENT ABNORMAL
[2022-05-27] MEDS: GABAPENTIN 100 MG CAP PO SCH ×2 (09:20→16:25)
[2022-05-27] MEDS: MULTIVITAMINS- 12 INJECTION 10 ML, FOLIC ACID MDV 1 MG, THIAMINE HCL INJ 100 MG in SODI... IV SCH ×2 (13:52→19:21)
[2022-05-28] MEDS ORDERED: CYANOCOBALAMIN INJ 1,000 MCG/ML VIAL IM ONE
[2022-05-28] MEDS ORDERED: CHOLESTYRAMINE 4 GM PACKET PO PRN
[2022-05-28] MEDS: METRONIDAZOLE 500MG/NS 100ML 100 ML IV SCH ×4 (03:00→20:06)
[2022-05-28 05:43] LABS: BASOPHILS # (AUTO) 0.1 (0.0-0.1); BASOPHILS % 0.6 % (0.0-1.0); EOSINOPHILS # (AUTO) 0.3 (0.0-0.4); EOSINOPHILS % 2.6 % (0.0-6.0); HEMATOCRIT 26.9 % (34.2-44.1); HEMOGLOBIN 7.7 g/dL (12.0-16.0); LYMPHOCYTES # (AUTO) 1.1 (1.0-3.2); LYMPHOCYTES % 10.9 % (18.0-39.1); MEAN CORPUSCULAR HGB CONC 28.6 g/dL (31-35); MEAN CORPUSCULAR VOLUME 111.6 fL (81-99); MONOCYTES # (AUTO) 0.6 (0.2-0.8); MONOCYTES % 6.6 % (4.4-11.3); NEUTROPHILS # (AUTO) 7.6 (2.1-6.9); NEUTROPHILS % 78.8 % (38.7-80.0); PLATELET COUNT 302 x10e3/uL (140-360); RED BLOOD COUNT 2.41 x10e6/uL (3.6-5.1); RED CELL DISTRIBUTION WIDTH 23.2 % (11.7-14.4)
[2022-05-28 05:47] LABS: CHOL/HDL RATIO 1.9 (3.0-3.6)
[2022-05-28] MEDS: HYDROMORPHONE 1MG/1ML INJ IV PRN ×5 (05:52→22:55)
[2022-05-28 06:11] LABS: ALANINE AMINOTRANSFERASE 45 IU/L (0-55); ALBUMIN 2.8 g/dL (3.5-5.0); ALBUMIN/GLOBULIN RATIO 1.1 (0.8-2.0); ALKALINE PHOSPHATASE 133 IU/L (40-150); ANION GAP 13.1 mmol/L (8-16); BLOOD UREA NITROGEN < 5 mg/dL (7-26); CALCIUM 7.2 mg/dL (8.4-10.2); CARBON DIOXIDE 21 mmol/L (22-29); CHLORIDE 111 mmol/L (98-107); CREATININE, SERUM 0.61 mg/dL (0.57-1.11); GLUCOSE 86 mg/dL (74-118); POTASSIUM 3.1 mmol/L (3.5-5.1); SODIUM 142 mmol/L (136-145)
[2022-05-28 06:14] LABS: BUN/CREATININE RATIO 8 (6-25)
[2022-05-28] MEDS: ALBUTEROL/IPRATROPIUM 3 ML NEB NEB PRN ×4 (06:35→18:45)
[2022-05-28 08:17] VITALS: BP 126/68
[2022-05-28 08:30] VITALS: BP 126/68
[2022-05-28] MEDS: LORAZEPAM 0.5 MG TAB PO PRN ×3 (09:01→20:56)
[2022-05-28] MEDS: DICYCLOMINE HCL 20 MG TAB PO SCH ×4 (09:02→20:06)
[2022-05-28] MEDS: SUCRALFATE 1 GM TAB PO SCH ×4 (09:02→20:06)
[2022-05-28] MEDS: CYANOCOBALAMIN INJ 1,000 MCG/ML VIAL IM SCH (09:02)
[2022-05-28] MEDS: GABAPENTIN 100 MG CAP PO SCH ×2 (09:05→15:46)
[2022-05-28 09:10] LABS: ANISOCYTOSIS MODERATE; HYPOCHROMASIA MODERATE; PLATELET ESTIMATE ADEQUATE; PLATELET MORPHOLOGY COMMENT NORMAL; RBC MORPHOLOGY COMMENT ABNORMAL
[2022-05-28] MEDS ORDERED: POTASSIUM CHLORIDE 20 MEQ TAB CR PO ONE (10:00)
[2022-05-28 11:10] VITALS: BP 130/81
[2022-05-28 12:05] VITALS: BP 130/81
[2022-05-28] MEDS: DEXTROSE 5%/0.9% SOD CHL 1,000 ML IV SCH ×2 (13:58→19:00)
[2022-05-28 16:08] VITALS: BP 138/72
[2022-05-29] VITALS (14 sets, daily range): BP systolic 86–170; BP diastolic 55–89
[2022-05-29 00:33] LABS: % IRON SATURATION 28 % (15-50); IRON 64 ug/dL (50-170); TOTAL IRON BINDING CAPACITY 227 ug/dL (261-478); TRANSFERRIN 162 mg/dL (180-382)
[2022-05-29] MEDS: ALBUTEROL/IPRATROPIUM 3 ML NEB NEB PRN ×2 (01:00→09:45)
[2022-05-29] MEDS: METRONIDAZOLE 500MG/NS 100ML 100 ML IV SCH ×4 (02:45→22:00)
[2022-05-29] MEDS: LORAZEPAM 0.5 MG TAB PO PRN ×2 (03:18→13:08)
[2022-05-29] MEDS: DEXTROSE 5%/0.9% SOD CHL 1,000 ML IV SCH ×2 (05:00→15:00)
[2022-05-29 05:02] LABS: BASOPHILS # (AUTO) 0.1 (0.0-0.1); BASOPHILS % 0.5 % (0.0-1.0); EOSINOPHILS # (AUTO) 0.2 (0.0-0.4); EOSINOPHILS % 2.3 % (0.0-6.0); LYMPHOCYTES # (AUTO) 0.5 (1.0-3.2); LYMPHOCYTES % 5.5 % (18.0-39.1); MEAN CORPUSCULAR HEMOGLOBIN 32.7 pg (28-32); MEAN CORPUSCULAR HGB CONC 30.1 g/dL (31-35); MEAN CORPUSCULAR VOLUME 108.5 fL (81-99); MONOCYTES # (AUTO) 0.8 (0.2-0.8); MONOCYTES % 7.7 % (4.4-11.3); NEUTROPHILS # (AUTO) 8.1 (2.1-6.9); NEUTROPHILS % 83.2 % (38.7-80.0); PLATELET COUNT 300 x10e3/uL (140-360); RED BLOOD COUNT 2.11 x10e6/uL (3.6-5.1); RED CELL DISTRIBUTION WIDTH 23.3 % (11.7-14.4)
[2022-05-29 05:08] LABS: HEMATOCRIT 22.9 % (34.2-44.1); HEMOGLOBIN 6.9 g/dL (12.0-16.0)
[2022-05-29 05:26] LABS: ALANINE AMINOTRANSFERASE 43 IU/L (0-55); ALBUMIN 2.8 g/dL (3.5-5.0); ALKALINE PHOSPHATASE 131 IU/L (40-150); ANION GAP 13.3 mmol/L (8-16); BLOOD UREA NITROGEN < 5 mg/dL (7-26); CALCIUM 7.6 mg/dL (8.4-10.2); CARBON DIOXIDE 20 mmol/L (22-29); CHLORIDE 111 mmol/L (98-107); CREATININE, SERUM 0.63 mg/dL (0.57-1.11); GLUCOSE 94 mg/dL (74-118); POTASSIUM 3.3 mmol/L (3.5-5.1); SODIUM 141 mmol/L (136-145)
[2022-05-29 05:28] LABS: BUN/CREATININE RATIO 8 (6-25)
[2022-05-29] MEDS: SUCRALFATE 1 GM TAB PO SCH ×4 (07:30→20:06)
[2022-05-29] MEDS ORDERED: SODIUM CHLORIDE 0.9% 250ML 250 ML IV ONE (08:45)
[2022-05-29] MEDS: CYANOCOBALAMIN INJ 1,000 MCG/ML VIAL IM SCH (09:00)
[2022-05-29] MEDS: DICYCLOMINE HCL 20 MG TAB PO SCH ×4 (09:00→20:06)
[2022-05-29] MEDS: GABAPENTIN 100 MG CAP PO SCH ×2 (09:00→17:19)
[2022-05-29] MEDS: ONDANSETRON HCL INJ 2MG/ML 2ML 2 MG/ML VIAL IV PRN (09:40)
[2022-05-29] MEDS: HYDROMORPHONE 1MG/1ML INJ IV PRN ×2 (09:40→15:01)
[2022-05-29] MEDS ORDERED: SODIUM CHLORIDE 0.9% 250ML 250 ML ONE (13:03)
[2022-05-29] MEDS ORDERED: ALBUTEROL SULF 0.083% NEB SOLN 3 ML NEB INH PRN (13:30)
[2022-05-29] MEDS: ASPIRIN 81 MG CHEW TAB PO SCH (14:00)
[2022-05-29] MEDS: LISINOPRIL 20 MG TAB PO SCH (17:18)
[2022-05-29] MEDS: METOPROLOL TARTRATE 50 MG TAB PO SCH ×2 (17:18→17:22)
[2022-05-29] MEDS: SERTRALINE HCL 50 MG TAB PO SCH (17:19)
[2022-05-29] MEDS: HYDROCHLOROTHIAZIDE 25 MG TAB PO SCH (17:19)
[2022-05-29] MEDS: NICOTINE 21 MG/EA PATCH TOP SCH (17:20)
[2022-05-29] MEDS ORDERED: RISPERIDONE 1 MG TAB PO PRN (18:00)
[2022-05-29] MEDS ORDERED: DIAZEPAM INJ 5 MG/ML 2 ML IV ONE ×2 (18:30→19:00)
[2022-05-29] MEDS ORDERED: RISPERIDONE 1 MG TAB PO ONE (18:30)
[2022-05-29] MEDS ORDERED: KETAMINE HCL INJ 50 MG/ML 10 ML VIAL IV STA (18:32)
[2022-05-29 18:50] LABS: ALANINE AMINOTRANSFERASE 43 IU/L (0-55); ALBUMIN 2.9 g/dL (3.5-5.0); ALKALINE PHOSPHATASE 125 IU/L (40-150); BLOOD UREA NITROGEN < 5 mg/dL (7-26); CALCIUM 7.9 mg/dL (8.4-10.2); CARBON DIOXIDE 21 mmol/L (22-29); CHLORIDE 109 mmol/L (98-107); CREATININE, SERUM 0.63 mg/dL (0.57-1.11); GLUCOSE 78 mg/dL (74-118); MAGNESIUM 1.4 MG/DL (1.3-2.1); PHOSPHORUS 1.7 MG/DL (2.3-4.7); SODIUM 140 mmol/L (136-145)
[2022-05-29 18:56] LABS: BUN/CREATININE RATIO 8 (6-25)
[2022-05-29] MEDS ORDERED: ZIPRASIDONE 20 MG VIAL IM ONE (19:30)
[2022-05-30] VITALS (29 sets, daily range): BP systolic 101–181; BP diastolic 65–125
[2022-05-30] MEDS: ZIPRASIDONE 20 MG VIAL IM PRN (00:48)
[2022-05-30] MEDS: DEXTROSE 5%/0.9% SOD CHL 1,000 ML IV SCH ×3 (00:51→22:14)
[2022-05-30] MEDS: METRONIDAZOLE 500MG/NS 100ML 100 ML IV SCH ×4 (03:35→22:13)
[2022-05-30 04:56] LABS: BASOPHILS % 0.5 % (0.0-1.0); EOSINOPHILS # (AUTO) 0.1 (0.0-0.4); EOSINOPHILS % 1.8 % (0.0-6.0); HEMATOCRIT 25.8 % (34.2-44.1); HEMOGLOBIN 7.8 g/dL (12.0-16.0); LYMPHOCYTES # (AUTO) 0.4 (1.0-3.2); LYMPHOCYTES % 4.9 % (18.0-39.1); MEAN CORPUSCULAR HEMOGLOBIN 32.4 pg (28-32); MEAN CORPUSCULAR HGB CONC 30.2 g/dL (31-35); MEAN CORPUSCULAR VOLUME 107.1 fL (81-99); MONOCYTES # (AUTO) 0.7 (0.2-0.8); MONOCYTES % 8.6 % (4.4-11.3); NEUTROPHILS # (AUTO) 6.6 (2.1-6.9); NEUTROPHILS % 83.3 % (38.7-80.0); PLATELET COUNT 185 x10e3/uL (140-360); RED BLOOD COUNT 2.41 x10e6/uL (3.6-5.1); RED CELL DISTRIBUTION WIDTH 24.5 % (11.7-14.4)
[2022-05-30 05:20] LABS: ANION GAP 17.4 mmol/L (8-16); BLOOD UREA NITROGEN < 5 mg/dL (7-26); CALCIUM 7.9 mg/dL (8.4-10.2); CARBON DIOXIDE 20 mmol/L (22-29); CHLORIDE 110 mmol/L (98-107); CREATININE, SERUM 0.64 mg/dL (0.57-1.11); GLUCOSE 80 mg/dL (74-118); MAGNESIUM 2.1 MG/DL (1.3-2.1); PHOSPHORUS 1.8 MG/DL (2.3-4.7); POTASSIUM 3.4 mmol/L (3.5-5.1); SODIUM 144 mmol/L (136-145)
[2022-05-30 05:27] LABS: BUN/CREATININE RATIO 8 (6-25)
[2022-05-30] MEDS: METOPROLOL TARTRATE 50 MG TAB PO SCH ×4 (05:45→17:50)
[2022-05-30] MEDS ORDERED: POTASSIUM PHOSPHATE 20 MM in SODIUM CHLORIDE 0.9% 250ML 250 ML IV ONE (07:00)
[2022-05-30] MEDS: ALBUTEROL/IPRATROPIUM 3 ML NEB NEB PRN ×5 (08:10→23:25)
[2022-05-30] MEDS: HYDROMORPHONE 1MG/1ML INJ IV PRN ×4 (08:28→22:25)
[2022-05-30] MEDS: SUCRALFATE 1 GM TAB PO SCH ×4 (08:57→22:14)
[2022-05-30] MEDS: LISINOPRIL 20 MG TAB PO SCH (09:00)
[2022-05-30] MEDS: DICYCLOMINE HCL 20 MG TAB PO SCH ×4 (09:17→22:14)
[2022-05-30] MEDS: SERTRALINE HCL 50 MG TAB PO SCH (09:17)
[2022-05-30] MEDS: CYANOCOBALAMIN INJ 1,000 MCG/ML VIAL IM SCH (09:17)
[2022-05-30] MEDS: HYDROCHLOROTHIAZIDE 25 MG TAB PO SCH (09:17)
[2022-05-30] MEDS: ASPIRIN 81 MG CHEW TAB PO SCH (09:18)
[2022-05-30] MEDS: GABAPENTIN 100 MG CAP PO SCH ×2 (09:18→17:49)
[2022-05-30] MEDS: LORAZEPAM 0.5 MG TAB PO PRN ×2 (13:18→22:15)
[2022-05-30] MEDS: NICOTINE 21 MG/EA PATCH TOP SCH (17:49)
[2022-05-31] VITALS (7 sets, daily range): BP systolic 109–146; BP diastolic 63–79
[2022-05-31] MEDS: METRONIDAZOLE 500MG/NS 100ML 100 ML IV SCH ×4 (02:52→19:49)
[2022-05-31 05:46] LABS: BASOPHILS % 0.5 % (0.0-1.0); EOSINOPHILS # (AUTO) 0.2 (0.0-0.4); EOSINOPHILS % 3.2 % (0.0-6.0); HEMATOCRIT 22.8 % (34.2-44.1); HEMOGLOBIN 7.1 g/dL (12.0-16.0); LYMPHOCYTES # (AUTO) 0.5 (1.0-3.2); LYMPHOCYTES % 7.9 % (18.0-39.1); MEAN CORPUSCULAR HEMOGLOBIN 31.8 pg (28-32); MEAN CORPUSCULAR HGB CONC 31.1 g/dL (31-35); MEAN CORPUSCULAR VOLUME 102.2 fL (81-99); MONOCYTES # (AUTO) 0.6 (0.2-0.8); MONOCYTES % 10.1 % (4.4-11.3); NEUTROPHILS # (AUTO) 4.6 (2.1-6.9); NEUTROPHILS % 77.6 % (38.7-80.0); PLATELET COUNT 240 x10e3/uL (140-360); RED BLOOD COUNT 2.23 x10e6/uL (3.6-5.1); RED CELL DISTRIBUTION WIDTH 23.8 % (11.7-14.4)
[2022-05-31 06:13] LABS: ALANINE AMINOTRANSFERASE 28 IU/L (0-55); ALBUMIN 2.4 g/dL (3.5-5.0); ALKALINE PHOSPHATASE 92 IU/L (40-150); ANION GAP 12.1 mmol/L (8-16); BLOOD UREA NITROGEN < 5 mg/dL (7-26); CALCIUM 7.8 mg/dL (8.4-10.2); CARBON DIOXIDE 28 mmol/L (22-29); CHLORIDE 106 mmol/L (98-107); CREATININE, SERUM 0.65 mg/dL (0.57-1.11); GLUCOSE 111 mg/dL (74-118); MAGNESIUM 1.4 MG/DL (1.3-2.1); PHOSPHORUS 1.9 MG/DL (2.3-4.7); SODIUM 144 mmol/L (136-145)
[2022-05-31] MEDS: METOPROLOL TARTRATE 50 MG TAB PO SCH ×4 (06:17→17:16)
[2022-05-31 06:23] LABS: BUN/CREATININE RATIO 8 (6-25)
[2022-05-31] MEDS: ALBUTEROL/IPRATROPIUM 3 ML NEB NEB PRN ×2 (06:25→19:10)
[2022-05-31 06:26] LABS: POTASSIUM 2.1 mmol/L (3.5-5.1)
[2022-05-31] MEDS: HYDROMORPHONE 1MG/1ML INJ IV PRN ×3 (07:12→19:49)
[2022-05-31] MEDS ORDERED: POTASSIUM CHLORIDE 20 MEQ TAB CR PO ONE (07:15)
[2022-05-31] MEDS ORDERED: POTASSIUM CHLORIDE 20MEQ/100ML 100 ML IV ONE (07:15)
[2022-05-31 07:58] LABS: ANISOCYTOSIS MODERATE; HYPOCHROMASIA MODERATE; PLATELET ESTIMATE ADEQUATE; PLATELET MORPHOLOGY COMMENT NORMAL; POLYCHROMASIA FEW; RBC MORPHOLOGY COMMENT ABNORMAL
[2022-05-31] MEDS: CYANOCOBALAMIN INJ 1,000 MCG/ML VIAL IM SCH (08:49)
[2022-05-31] MEDS: LORAZEPAM 0.5 MG TAB PO PRN ×2 (08:49→15:56)
[2022-05-31] MEDS: SUCRALFATE 1 GM TAB PO SCH ×4 (08:50→19:48)
[2022-05-31] MEDS: DICYCLOMINE HCL 20 MG TAB PO SCH ×4 (08:50→19:48)
[2022-05-31] MEDS: LISINOPRIL 20 MG TAB PO SCH (08:50)
[2022-05-31] MEDS: GABAPENTIN 100 MG CAP PO SCH ×2 (08:50→17:12)
[2022-05-31] MEDS: SERTRALINE HCL 50 MG TAB PO SCH (08:50)
[2022-05-31] MEDS: ASPIRIN 81 MG CHEW TAB PO SCH (08:51)
[2022-05-31] MEDS: HYDROCHLOROTHIAZIDE 25 MG TAB PO SCH (08:52)
[2022-05-31] MEDS: DEXTROSE 5%/0.9% SOD CHL 1,000 ML IV SCH ×2 (16:04→16:09)
[2022-05-31] MEDS: NICOTINE 21 MG/EA PATCH TOP SCH (17:16)
[2022-05-31] MEDS ORDERED: PHOSPHORUS 250 MG TAB PO ONE (17:50)
[2022-05-31] MEDS ORDERED: RISPERIDONE 1 MG TAB PO SCH (21:15)
[2022-06-01] VITALS (8 sets, daily range): BP systolic 112–142; BP diastolic 63–85
[2022-06-01] MEDS: METOPROLOL TARTRATE 50 MG TAB PO SCH ×5 (04:04→23:13)
[2022-06-01] MEDS: METRONIDAZOLE 500MG/NS 100ML 100 ML IV SCH ×4 (04:05→21:26)
[2022-06-01] MEDS: DEXTROSE 5%/0.9% SOD CHL 1,000 ML IV SCH ×3 (04:20→23:12)
[2022-06-01] MEDS: HYDROMORPHONE 1MG/1ML INJ IV PRN ×4 (05:48→20:14)
[2022-06-01 05:50] LABS: BASOPHILS % 0.5 % (0.0-1.0); EOSINOPHILS # (AUTO) 0.2 (0.0-0.4); HEMATOCRIT 25.5 % (34.2-44.1); HEMOGLOBIN 7.6 g/dL (12.0-16.0); LYMPHOCYTES # (AUTO) 0.8 (1.0-3.2); LYMPHOCYTES % 10.2 % (18.0-39.1); MEAN CORPUSCULAR HEMOGLOBIN 31.8 pg (28-32); MEAN CORPUSCULAR HGB CONC 29.8 g/dL (31-35); MEAN CORPUSCULAR VOLUME 106.7 fL (81-99); MONOCYTES # (AUTO) 0.7 (0.2-0.8); MONOCYTES % 9.7 % (4.4-11.3); NEUTROPHILS # (AUTO) 5.6 (2.1-6.9); NEUTROPHILS % 76.1 % (38.7-80.0); PLATELET COUNT 271 x10e3/uL (140-360); RED BLOOD COUNT 2.39 x10e6/uL (3.6-5.1); RED CELL DISTRIBUTION WIDTH 23.4 % (11.7-14.4)
[2022-06-01 06:15] LABS: ANION GAP 13.4 mmol/L (8-16); BLOOD UREA NITROGEN < 5 mg/dL (7-26); CARBON DIOXIDE 27 mmol/L (22-29); CHLORIDE 107 mmol/L (98-107); CREATININE, SERUM 0.62 mg/dL (0.57-1.11); GLUCOSE 93 mg/dL (74-118); SODIUM 145 mmol/L (136-145)
[2022-06-01 06:17] LABS: BUN/CREATININE RATIO 8 (6-25); MAGNESIUM 1.4 MG/DL (1.3-2.1); PHOSPHORUS 2.3 MG/DL (2.3-4.7)
[2022-06-01 06:18] LABS: POTASSIUM 2.4 mmol/L (3.5-5.1)
[2022-06-01] MEDS: ALBUTEROL/IPRATROPIUM 3 ML NEB NEB PRN ×3 (06:52→18:35)
[2022-06-01] MEDS: GABAPENTIN 100 MG CAP PO SCH ×2 (08:59→17:17)
[2022-06-01] MEDS: SERTRALINE HCL 50 MG TAB PO SCH (08:59)
[2022-06-01] MEDS: DICYCLOMINE HCL 20 MG TAB PO SCH ×4 (08:59→21:24)
[2022-06-01] MEDS: ZIPRASIDONE 20 MG VIAL IM PRN (08:59)
[2022-06-01] MEDS: ASPIRIN 81 MG CHEW TAB PO SCH (09:00)
[2022-06-01] MEDS: HYDROCHLOROTHIAZIDE 25 MG TAB PO SCH (09:00)
[2022-06-01] MEDS: SUCRALFATE 1 GM TAB PO SCH ×4 (09:00→21:24)
[2022-06-01] MEDS: CYANOCOBALAMIN INJ 1,000 MCG/ML VIAL IM SCH (09:01)
[2022-06-01] MEDS: LISINOPRIL 20 MG TAB PO SCH (09:01)
[2022-06-01] MEDS ORDERED: POTASSIUM CHLORIDE 10MEQ EA PO SCH (11:15)
[2022-06-01] MEDS ORDERED: POTASSIUM CHLORIDE 20MEQ/100ML 100 ML IV ONE (11:15)
[2022-06-01] MEDS ORDERED: MAGNESIUM SULFATE 2GM/50ML 50 ML IV ONE (11:15)
[2022-06-01] MEDS: LORAZEPAM 0.5 MG TAB PO PRN ×2 (12:19→18:36)
[2022-06-01] MEDS: NICOTINE 21 MG/EA PATCH TOP SCH (17:16)
[2022-06-02] VITALS (7 sets, daily range): BP systolic 101–127; BP diastolic 60–80
[2022-06-02] MEDS: ALBUTEROL/IPRATROPIUM 3 ML NEB NEB PRN ×4 (01:05→19:15)
[2022-06-02] MEDS: METRONIDAZOLE 500MG/NS 100ML 100 ML IV SCH ×4 (02:50→21:58)
[2022-06-02] MEDS: HYDROMORPHONE 1MG/1ML INJ IV PRN ×5 (03:10→22:37)
[2022-06-02] MEDS: LORAZEPAM 0.5 MG TAB PO PRN (05:05)
[2022-06-02] MEDS: METOPROLOL TARTRATE 50 MG TAB PO SCH ×3 (05:38→17:10)
[2022-06-02 06:36] LABS: ANION GAP 11.5 mmol/L (8-16); BLOOD UREA NITROGEN < 5 mg/dL (7-26); CARBON DIOXIDE 29 mmol/L (22-29); CHLORIDE 103 mmol/L (98-107); CREATININE, SERUM 0.62 mg/dL (0.57-1.11); GLUCOSE 105 mg/dL (74-118); SODIUM 141 mmol/L (136-145)
[2022-06-02 06:37] LABS: BUN/CREATININE RATIO 8 (6-25)
[2022-06-02 06:38] LABS: POTASSIUM 2.5 mmol/L (3.5-5.1)
[2022-06-02] MEDS ORDERED: POTASSIUM CHLORIDE 10MEQ EA PO ONE (07:30)
[2022-06-02] MEDS ORDERED: POTASSIUM CHLORIDE 20MEQ/100ML 100 ML IV ONE (07:30)
[2022-06-02] MEDS ORDERED: MAGNESIUM SULFATE 2GM/50ML 50 ML IV ONE (07:30)
[2022-06-02] MEDS: CYANOCOBALAMIN INJ 1,000 MCG/ML VIAL IM SCH (08:53)
[2022-06-02] MEDS: SUCRALFATE 1 GM TAB PO SCH ×4 (08:53→21:58)
[2022-06-02] MEDS: GABAPENTIN 100 MG CAP PO SCH ×2 (08:54→17:09)
[2022-06-02] MEDS: ASPIRIN 81 MG CHEW TAB PO SCH (08:54)
[2022-06-02] MEDS: HYDROCHLOROTHIAZIDE 25 MG TAB PO SCH (08:54)
[2022-06-02] MEDS: DICYCLOMINE HCL 20 MG TAB PO SCH ×4 (08:54→21:58)
[2022-06-02] MEDS: SERTRALINE HCL 50 MG TAB PO SCH (08:55)
[2022-06-02] MEDS: LISINOPRIL 20 MG TAB PO SCH (08:55)
[2022-06-02] MEDS: ZIPRASIDONE 20 MG VIAL IM PRN (14:54)
[2022-06-02] MEDS: NICOTINE 21 MG/EA PATCH TOP SCH (17:09)
[2022-06-02] MEDS: DEXTROSE 5%/0.9% SOD CHL 1,000 ML IV SCH ×2 (17:21→21:58)
[2022-06-02] MEDS ORDERED: METHYLPREDNISOLONE SOD SUCC 40 MG/ML VIAL 1ML IV ONE (17:30)
[2022-06-03] VITALS (8 sets, daily range): BP systolic 122–146; BP diastolic 77–84
[2022-06-03] MEDS: ALBUTEROL/IPRATROPIUM 3 ML NEB NEB PRN ×5 (00:15→19:00)
[2022-06-03] MEDS: LORAZEPAM 1 MG TAB PO PRN ×2 (01:13→09:15)
[2022-06-03] MEDS: METOPROLOL TARTRATE 50 MG TAB PO SCH ×4 (01:13→17:39)
[2022-06-03] MEDS: HYDROMORPHONE 1MG/1ML INJ IV PRN (03:00)
[2022-06-03] MEDS: METRONIDAZOLE 500MG/NS 100ML 100 ML IV SCH ×4 (03:01→21:28)
[2022-06-03] MEDS: DEXTROSE 5%/0.9% SOD CHL 1,000 ML IV SCH ×2 (05:34→15:00)
[2022-06-03 06:18] LABS: BASOPHILS % 0.3 % (0.0-1.0); EOSINOPHILS % 0.3 % (0.0-6.0); HEMATOCRIT 24.4 % (34.2-44.1); HEMOGLOBIN 7.2 g/dL (12.0-16.0); LYMPHOCYTES # (AUTO) 0.6 (1.0-3.2); LYMPHOCYTES % 9.9 % (18.0-39.1); MEAN CORPUSCULAR HEMOGLOBIN 31.2 pg (28-32); MEAN CORPUSCULAR HGB CONC 29.5 g/dL (31-35); MEAN CORPUSCULAR VOLUME 105.6 fL (81-99); MONOCYTES # (AUTO) 0.6 (0.2-0.8); MONOCYTES % 10.4 % (4.4-11.3); NEUTROPHILS # (AUTO) 4.8 (2.1-6.9); NEUTROPHILS % 78.1 % (38.7-80.0); PLATELET COUNT 297 x10e3/uL (140-360); RED BLOOD COUNT 2.31 x10e6/uL (3.6-5.1); RED CELL DISTRIBUTION WIDTH 22.5 % (11.7-14.4)
[2022-06-03 06:50] LABS: ANION GAP 10.8 mmol/L (8-16); BLOOD UREA NITROGEN < 5 mg/dL (7-26); CALCIUM 7.8 mg/dL (8.4-10.2); CARBON DIOXIDE 29 mmol/L (22-29); CHLORIDE 106 mmol/L (98-107); CREATININE, SERUM 0.63 mg/dL (0.57-1.11); GLUCOSE 103 mg/dL (74-118); POTASSIUM 2.8 mmol/L (3.5-5.1); SODIUM 143 mmol/L (136-145)
[2022-06-03 06:51] LABS: BUN/CREATININE RATIO 8 (6-25)
[2022-06-03] MEDS: GABAPENTIN 100 MG CAP PO SCH ×2 (07:34→17:39)
[2022-06-03] MEDS: ASPIRIN 81 MG CHEW TAB PO SCH (07:34)
[2022-06-03] MEDS: CYANOCOBALAMIN INJ 1,000 MCG/ML VIAL IM SCH (07:34)
[2022-06-03] MEDS: SUCRALFATE 1 GM TAB PO SCH ×4 (07:34→21:28)
[2022-06-03] MEDS: SERTRALINE HCL 50 MG TAB PO SCH (07:35)
[2022-06-03] MEDS: LISINOPRIL 20 MG TAB PO SCH (09:00)
[2022-06-03] MEDS: HYDROCHLOROTHIAZIDE 25 MG TAB PO SCH (09:00)
[2022-06-03] MEDS: DICYCLOMINE HCL 20 MG TAB PO SCH ×4 (09:00→21:28)
[2022-06-03 09:12] LABS: PLATELET ESTIMATE ADEQUATE; PLATELET MORPHOLOGY COMMENT NORMAL; RBC MORPHOLOGY COMMENT ABNORMAL
[2022-06-03 09:13] LABS: ANISOCYTOSIS SLIGHT; HYPOCHROMASIA SLIGHT; POIKILOCYTOSIS SLIGHT; POLYCHROMASIA FEW; SPHEROCYTES FEW
[2022-06-03 09:14] LABS: OVALOCYTES FEW
[2022-06-03] MEDS: POTASSIUM CHLORIDE 20 MEQ TAB CR PO SCH ×2 (09:15→14:00)
[2022-06-03] MEDS: ONDANSETRON HCL INJ 2MG/ML 2ML 2 MG/ML VIAL IV PRN (12:41)
[2022-06-03] MEDS: RISPERIDONE 1 MG TAB PO PRN (15:04)
[2022-06-03] MEDS ORDERED: POTASSIUM CHLORIDE 20 MEQ TAB CR PO ONE (15:30)
[2022-06-03] MEDS: NICOTINE 21 MG/EA PATCH TOP SCH (17:40)
[2022-06-03] MEDS: BUDESONIDE/FORMOTEROL 160/4.5MCG INHALER INH SCH (19:15)
[2022-06-03] MEDS ORDERED: SODIUM CHLORIDE 0.9% 100 ML ONE (21:53)
[2022-06-04] MEDS: ALBUTEROL/IPRATROPIUM 3 ML NEB NEB PRN (00:30)
[2022-06-04] MEDS: METRONIDAZOLE 500MG/NS 100ML 100 ML IV SCH ×4 (03:27→20:50)
[2022-06-04 03:41] VITALS: BP 151/90
[2022-06-04] MEDS: RISPERIDONE 1 MG TAB PO PRN (04:15)
[2022-06-04 05:18] LABS: BASOPHILS # (AUTO) 0.1 (0.0-0.1); BASOPHILS % 0.9 % (0.0-1.0); EOSINOPHILS # (AUTO) 0.1 (0.0-0.4); EOSINOPHILS % 1.6 % (0.0-6.0); HEMATOCRIT 24.7 % (34.2-44.1); HEMOGLOBIN 7.5 g/dL (12.0-16.0); LYMPHOCYTES # (AUTO) 0.7 (1.0-3.2); LYMPHOCYTES % 9.6 % (18.0-39.1); MEAN CORPUSCULAR HEMOGLOBIN 31.3 pg (28-32); MEAN CORPUSCULAR HGB CONC 30.4 g/dL (31-35); MEAN CORPUSCULAR VOLUME 102.9 fL (81-99); MONOCYTES # (AUTO) 0.6 (0.2-0.8); MONOCYTES % 9.3 % (4.4-11.3); NEUTROPHILS # (AUTO) 5.4 (2.1-6.9); NEUTROPHILS % 78.2 % (38.7-80.0); PLATELET COUNT 316 x10e3/uL (140-360); RED CELL DISTRIBUTION WIDTH 22.5 % (11.7-14.4)
[2022-06-04 05:47] LABS: ANION GAP 11.9 mmol/L (8-16); BLOOD UREA NITROGEN < 5 mg/dL (7-26); CALCIUM 7.9 mg/dL (8.4-10.2); CARBON DIOXIDE 30 mmol/L (22-29); CHLORIDE 105 mmol/L (98-107); CREATININE, SERUM 0.59 mg/dL (0.57-1.11); GLUCOSE 88 mg/dL (74-118); PHOSPHORUS 2.4 MG/DL (2.3-4.7); SODIUM 144 mmol/L (136-145)
[2022-06-04 05:50] LABS: BUN/CREATININE RATIO 8 (6-25)
[2022-06-04] MEDS: METOPROLOL TARTRATE 50 MG TAB PO SCH ×4 (05:50→17:42)
[2022-06-04 05:51] LABS: POTASSIUM 2.9 mmol/L (3.5-5.1)
[2022-06-04] MEDS ORDERED: POTASSIUM CHLORIDE 20 MEQ TAB CR PO ONE (06:15)
[2022-06-04] MEDS: BUDESONIDE/FORMOTEROL 160/4.5MCG INHALER INH SCH ×2 (07:00→19:05)
[2022-06-04 07:30] LABS: PLATELET ESTIMATE ADEQUATE; PLATELET MORPHOLOGY COMMENT NORMAL
[2022-06-04 07:31] LABS: ANISOCYTOSIS SLIGHT; HYPOCHROMASIA SLIGHT; POIKILOCYTOSIS SLIGHT; RBC MORPHOLOGY COMMENT ABNORMAL
[2022-06-04] MEDS ORDERED: HYDROCODONE/APAP 10MG-325MG TAB PO PRN (08:15)
[2022-06-04] MEDS ORDERED: ACETAMIN/BUTALBITAL/CAFFEINE TAB PO ONE (08:30)
[2022-06-04] MEDS ORDERED: METHYLPREDNISOLONE SOD SUCC 40 MG/ML VIAL 1ML IV ONE (09:00)
[2022-06-04] MEDS: HYDROCHLOROTHIAZIDE 25 MG TAB PO SCH (09:00)
[2022-06-04] MEDS: CYANOCOBALAMIN INJ 1,000 MCG/ML VIAL IM SCH (09:00)
[2022-06-04] MEDS: LISINOPRIL 20 MG TAB PO SCH (09:00)
[2022-06-04] MEDS: SERTRALINE HCL 50 MG TAB PO SCH (09:01)
[2022-06-04] MEDS: DICYCLOMINE HCL 20 MG TAB PO SCH ×4 (09:01→20:50)
[2022-06-04] MEDS: SUCRALFATE 1 GM TAB PO SCH ×4 (09:01→20:50)
[2022-06-04] MEDS: GABAPENTIN 100 MG CAP PO SCH ×2 (09:02→17:29)
[2022-06-04] MEDS: ASPIRIN 81 MG CHEW TAB PO SCH (09:02)
[2022-06-04 09:24] VITALS: BP 154/80
[2022-06-04] MEDS: ACETAMIN/BUTALBITAL/CAFFEINE TAB PO PRN ×2 (09:50→15:20)
[2022-06-04] MEDS ORDERED: MAGNESIUM SULF 1GRAM/DEXTROSE 100 ML IV ONE ×2 (11:15→17:30)
[2022-06-04] MEDS: ALBUTEROL/IPRATROPIUM 3 ML NEB NEB SCH ×4 (11:20→23:05)
[2022-06-04 12:30] VITALS: BP 152/99
[2022-06-04 16:12] VITALS: BP 121/68
[2022-06-04] MEDS: POTASSIUM CHLORIDE 20 MEQ TAB CR PO SCH ×2 (17:00→17:29)
[2022-06-04] MEDS: NICOTINE 21 MG/EA PATCH TOP SCH (17:30)
[2022-06-04 20:00] VITALS: BP 135/78
[2022-06-04] MEDS: HYDROCODONE/APAP 10MG-325MG TAB PO PRN (21:02)
[2022-06-05] VITALS (7 sets, daily range): BP systolic 110–143; BP diastolic 61–82
[2022-06-05] MEDS: METOPROLOL TARTRATE 50 MG TAB PO SCH ×4 (00:15→17:37)
[2022-06-05] MEDS: RISPERIDONE 1 MG TAB PO PRN (00:16)
[2022-06-05] MEDS: METRONIDAZOLE 500MG/NS 100ML 100 ML IV SCH (02:30)
[2022-06-05] MEDS: ALBUTEROL/IPRATROPIUM 3 ML NEB NEB SCH ×6 (03:00→23:50)
[2022-06-05] MEDS: HYDROCODONE/APAP 10MG-325MG TAB PO PRN ×4 (05:36→22:11)
[2022-06-05 06:05] LABS: BASOPHILS # (AUTO) 0.1 (0.0-0.1); EOSINOPHILS # (AUTO) 0.1 (0.0-0.4); EOSINOPHILS % 1.6 % (0.0-6.0); HEMATOCRIT 25.2 % (34.2-44.1); HEMOGLOBIN 7.4 g/dL (12.0-16.0); LYMPHOCYTES # (AUTO) 1.3 (1.0-3.2); LYMPHOCYTES % 21.7 % (18.0-39.1); MEAN CORPUSCULAR HEMOGLOBIN 30.5 pg (28-32); MEAN CORPUSCULAR HGB CONC 29.4 g/dL (31-35); MEAN CORPUSCULAR VOLUME 103.7 fL (81-99); MONOCYTES # (AUTO) 0.7 (0.2-0.8); MONOCYTES % 10.7 % (4.4-11.3); NEUTROPHILS # (AUTO) 3.9 (2.1-6.9); NEUTROPHILS % 64.7 % (38.7-80.0); PLATELET COUNT 360 x10e3/uL (140-360); RED BLOOD COUNT 2.43 x10e6/uL (3.6-5.1); RED CELL DISTRIBUTION WIDTH 21.9 % (11.7-14.4)
[2022-06-05 06:21] LABS: ALANINE AMINOTRANSFERASE 16 IU/L (0-55); ALBUMIN 2.5 g/dL (3.5-5.0); ALBUMIN/GLOBULIN RATIO 0.9 (0.8-2.0); ALKALINE PHOSPHATASE 55 IU/L (40-150); ANION GAP 10.8 mmol/L (8-16); BLOOD UREA NITROGEN < 5 mg/dL (7-26); BUN/CREATININE RATIO 8 (6-25); CARBON DIOXIDE 34 mmol/L (22-29); CHLORIDE 104 mmol/L (98-107); CREATININE, SERUM 0.63 mg/dL (0.57-1.11); GLUCOSE 96 mg/dL (74-118); SODIUM 146 mmol/L (136-145)
[2022-06-05 06:22] LABS: POTASSIUM 2.8 mmol/L (3.5-5.1)
[2022-06-05] MEDS: BUDESONIDE/FORMOTEROL 160/4.5MCG INHALER INH SCH ×2 (06:33→20:17)
[2022-06-05] MEDS: SUCRALFATE 1 GM TAB PO SCH ×4 (08:56→21:52)
[2022-06-05] MEDS: CYANOCOBALAMIN INJ 1,000 MCG/ML VIAL IM SCH (08:56)
[2022-06-05] MEDS: DICYCLOMINE HCL 20 MG TAB PO SCH ×4 (08:57→21:52)
[2022-06-05] MEDS: ASPIRIN 81 MG CHEW TAB PO SCH (08:57)
[2022-06-05] MEDS: HYDROCHLOROTHIAZIDE 25 MG TAB PO SCH (08:58)
[2022-06-05] MEDS: LISINOPRIL 20 MG TAB PO SCH (08:58)
[2022-06-05] MEDS: POTASSIUM CHLORIDE 20 MEQ TAB CR PO SCH ×2 (08:58→16:55)
[2022-06-05] MEDS: GABAPENTIN 100 MG CAP PO SCH ×2 (08:59→16:56)
[2022-06-05] MEDS: SERTRALINE HCL 50 MG TAB PO SCH (09:00)
[2022-06-05] MEDS: LORAZEPAM 1 MG TAB PO PRN ×2 (09:07→16:56)
[2022-06-05] MEDS: NICOTINE 21 MG/EA PATCH TOP SCH (16:57)
[2022-06-05] MEDS: ONDANSETRON HCL INJ 2MG/ML 2ML 2 MG/ML VIAL IV PRN (16:58)
[2022-06-05] MEDS ORDERED: POTASSIUM CHLORIDE 20 MEQ TAB CR PO ONE (17:45)
[2022-06-06] VITALS (7 sets, daily range): BP systolic 122–156; BP diastolic 74–87
[2022-06-06] MEDS: METOPROLOL TARTRATE 50 MG TAB PO SCH ×4 (00:22→17:37)
[2022-06-06] MEDS: ALBUTEROL/IPRATROPIUM 3 ML NEB NEB SCH ×6 (03:25→22:45)
[2022-06-06] MEDS: HYDROCODONE/APAP 10MG-325MG TAB PO PRN ×4 (05:29→19:32)
[2022-06-06 06:04] LABS: BASOPHILS # (AUTO) 0.1 (0.0-0.1); EOSINOPHILS # (AUTO) 0.2 (0.0-0.4); EOSINOPHILS % 2.4 % (0.0-6.0); HEMATOCRIT 27.9 % (34.2-44.1); HEMOGLOBIN 8.5 g/dL (12.0-16.0); LYMPHOCYTES # (AUTO) 1.6 (1.0-3.2); LYMPHOCYTES % 17.4 % (18.0-39.1); MEAN CORPUSCULAR HGB CONC 30.5 g/dL (31-35); MEAN CORPUSCULAR VOLUME 101.8 fL (81-99); MONOCYTES # (AUTO) 0.9 (0.2-0.8); MONOCYTES % 10.2 % (4.4-11.3); NEUTROPHILS # (AUTO) 6.1 (2.1-6.9); NEUTROPHILS % 68.6 % (38.7-80.0); PLATELET COUNT 455 x10e3/uL (140-360); RED BLOOD COUNT 2.74 x10e6/uL (3.6-5.1); RED CELL DISTRIBUTION WIDTH 22.2 % (11.7-14.4)
[2022-06-06 06:34] LABS: ALANINE AMINOTRANSFERASE 15 IU/L (0-55); ALBUMIN 2.8 g/dL (3.5-5.0); ALBUMIN/GLOBULIN RATIO 0.8 (0.8-2.0); ALKALINE PHOSPHATASE 64 IU/L (40-150); ANION GAP 13.6 mmol/L (8-16); BLOOD UREA NITROGEN < 5 mg/dL (7-26); CALCIUM 8.7 mg/dL (8.4-10.2); CARBON DIOXIDE 36 mmol/L (22-29); CHLORIDE 100 mmol/L (98-107); CREATININE, SERUM 0.63 mg/dL (0.57-1.11); GLUCOSE 87 mg/dL (74-118); POTASSIUM 3.6 mmol/L (3.5-5.1); SODIUM 146 mmol/L (136-145)
[2022-06-06 06:40] LABS: BUN/CREATININE RATIO 8 (6-25)
[2022-06-06] MEDS: BUDESONIDE/FORMOTEROL 160/4.5MCG INHALER INH SCH ×2 (07:10→19:00)
[2022-06-06] MEDS: SUCRALFATE 1 GM TAB PO SCH ×4 (08:05→21:12)
[2022-06-06] MEDS: GABAPENTIN 100 MG CAP PO SCH ×2 (08:05→16:41)
[2022-06-06] MEDS: DICYCLOMINE HCL 20 MG TAB PO SCH ×4 (08:05→21:12)
[2022-06-06] MEDS: POTASSIUM CHLORIDE 20 MEQ TAB CR PO SCH (08:05)
[2022-06-06] MEDS: CYANOCOBALAMIN INJ 1,000 MCG/ML VIAL IM SCH (08:05)
[2022-06-06] MEDS: ASPIRIN 81 MG CHEW TAB PO SCH (08:05)
[2022-06-06] MEDS: ONDANSETRON HCL INJ 2MG/ML 2ML 2 MG/ML VIAL IV PRN (08:06)
[2022-06-06] MEDS: SERTRALINE HCL 50 MG TAB PO SCH (08:06)
[2022-06-06] MEDS ORDERED: FUROSEMIDE INJ 10 MG/ML 2 ML VIAL IV SCH (09:00)
[2022-06-06] MEDS: LISINOPRIL 20 MG TAB PO SCH (09:30)
[2022-06-06] MEDS: LORAZEPAM 1 MG TAB PO PRN ×2 (10:31→17:36)
[2022-06-06] MEDS: SPIRONOLACTONE 25 MG TAB PO SCH (16:41)
[2022-06-06] MEDS: NICOTINE 21 MG/EA PATCH TOP SCH (16:41)
[2022-06-07] VITALS: BP 136/72
[2022-06-07] MEDS: LORAZEPAM 1 MG TAB PO PRN ×2 (01:02→10:25)
[2022-06-07] MEDS: METOPROLOL TARTRATE 50 MG TAB PO SCH ×3 (01:02→12:24)
[2022-06-07] MEDS: ALBUTEROL/IPRATROPIUM 3 ML NEB NEB SCH ×3 (03:30→11:10)
[2022-06-07 04:00] VITALS: BP 138/77
[2022-06-07] MEDS: HYDROCODONE/APAP 10MG-325MG TAB PO PRN (04:10)
[2022-06-07 05:50] LABS: BASOPHILS # (AUTO) 0.1 (0.0-0.1); BASOPHILS % 1.2 % (0.0-1.0); EOSINOPHILS # (AUTO) 0.2 (0.0-0.4); EOSINOPHILS % 3.7 % (0.0-6.0); HEMATOCRIT 24.2 % (34.2-44.1); HEMOGLOBIN 7.2 g/dL (12.0-16.0); LYMPHOCYTES % 15.3 % (18.0-39.1); MEAN CORPUSCULAR HEMOGLOBIN 30.3 pg (28-32); MEAN CORPUSCULAR HGB CONC 29.8 g/dL (31-35); MEAN CORPUSCULAR VOLUME 101.7 fL (81-99); MONOCYTES # (AUTO) 0.7 (0.2-0.8); MONOCYTES % 10.4 % (4.4-11.3); NEUTROPHILS # (AUTO) 4.5 (2.1-6.9); NEUTROPHILS % 69.1 % (38.7-80.0); PLATELET COUNT 353 x10e3/uL (140-360); RED BLOOD COUNT 2.38 x10e6/uL (3.6-5.1)
[2022-06-07 06:18] LABS: ALANINE AMINOTRANSFERASE 14 IU/L (0-55); ALBUMIN 2.5 g/dL (3.5-5.0); ALKALINE PHOSPHATASE 56 IU/L (40-150); ANION GAP 11.1 mmol/L (8-16); BLOOD UREA NITROGEN < 5 mg/dL (7-26); CALCIUM 8.1 mg/dL (8.4-10.2); CARBON DIOXIDE 38 mmol/L (22-29); CHLORIDE 99 mmol/L (98-107); GLUCOSE 98 mg/dL (74-118); POTASSIUM 3.1 mmol/L (3.5-5.1); SODIUM 145 mmol/L (136-145)
[2022-06-07 06:24] LABS: BUN/CREATININE RATIO 8 (6-25)
[2022-06-07] MEDS: BUDESONIDE/FORMOTEROL 160/4.5MCG INHALER INH SCH (07:15)
[2022-06-07] MEDS: ACETAMIN/BUTALBITAL/CAFFEINE TAB PO PRN (07:37)
[2022-06-07 07:47] VITALS: BP 158/77
[2022-06-07 07:48] VITALS: BP 158/77
[2022-06-07] MEDS: SUCRALFATE 1 GM TAB PO SCH ×2 (08:38→12:20)
[2022-06-07] MEDS: DICYCLOMINE HCL 20 MG TAB PO SCH (08:39)
[2022-06-07] MEDS: SERTRALINE HCL 50 MG TAB PO SCH (08:39)
[2022-06-07] MEDS: CYANOCOBALAMIN INJ 1,000 MCG/ML VIAL IM SCH (08:39)
[2022-06-07] MEDS: GABAPENTIN 100 MG CAP PO SCH (08:39)
[2022-06-07] MEDS: LISINOPRIL 20 MG TAB PO SCH (08:39)
[2022-06-07] MEDS: SPIRONOLACTONE 25 MG TAB PO SCH (08:39)
[2022-06-07] MEDS: ASPIRIN 81 MG CHEW TAB PO SCH (08:39)
[2022-06-07] MEDS ORDERED: FUROSEMIDE INJ 10 MG/ML 4 ML VIAL IV SCH (09:00)
[2022-06-07] MEDS ORDERED: POTASSIUM CHLORIDE 10MEQ EA PO ONE (11:00)
[2022-06-07] MEDS ORDERED: LASIX20 MG PO (11:31)
[2022-06-07] MEDS ORDERED: LISINOPRIL20 MG PO (11:31)
[2022-06-07] MEDS ORDERED: FERROUS SULFAT324 MG PO (11:31)
[2022-06-07] MEDS ORDERED: PANTOPRAZOLE SO40 MG PO (11:31)
[2022-06-07] MEDS ORDERED: ALDACTONE25 MG PO (11:31)
[2022-06-07] MEDS ORDERED: SYMBICORT 16010.2 GM INH (11:31)
[2022-06-07] MEDS ORDERED: GABAPENTIN100 MG PO (11:31)
[2022-06-07] MEDS ORDERED: CARAFATE1 GM PO (11:31)
[2022-06-07 11:37] VITALS: BP 159/69
== END 2022-06-07 12:45 | disposition home or self-care (01) | DRG 871 ==
LOC: ER 04:34 → ERHOLD 08:14 → ICU 09:15 → MED/SURG 05-27 23:03 → ICU 05-29 18:58 → MED/SURG2 05-30 20:27
PROVIDERS: ADMIT Internal Medicine; ATTEND Internal Medicine
PROC: 3E03329 Introduction of Other Anti-infective into Peripheral Vein, Percutaneous Approach (ICD-10-PCS; principal; 2022-05-26)
PROC: 30233N1 Transfusion of Nonautologous Red Blood Cells into Peripheral Vein, Percutaneous Approach (ICD-10-PCS; 2022-05-29)
PROC: 5A0935A Assistance with Respiratory Ventilation, Less than 24 Consecutive Hours, High Flow/Velocity Cannula (ICD-10-PCS; 2022-05-29)
DX: A41.9 Sepsis, unspecified organism (principal); G93.41 Metabolic encephalopathy; R65.21 Severe sepsis with septic shock; J96.21 Acute and chronic respiratory failure with hypoxia; K51.018 Ulcerative (chronic) pancolitis with other complication; E87.0 Hyperosmolality and hypernatremia; N39.0 Urinary tract infection, site not specified; E87.21 Acute metabolic acidosis; M10.9 Gout, unspecified; G62.9 Polyneuropathy, unspecified; D63.8 Anemia in other chronic diseases classified elsewhere; F10.10 Alcohol abuse, uncomplicated; J44.9 Chronic obstructive pulmonary disease, unspecified; R74.8 Abnormal levels of other serum enzymes; R73.9 Hyperglycemia, unspecified; B96.1 Klebsiella pneumoniae [K. pneumoniae] as the cause of diseases classified elsewhere; Z74.09 Other reduced mobility; E83.39 Other disorders of phosphorus metabolism; E83.42 Hypomagnesemia
CPT/HCPCS: 0223U; 36415; 71045; 71250; 72100; 72170; 74177; 74230; 80048; 80053; 80061; 80307; 80320; 81001; 82088; 82140; 82550; 82553; 82607; 82746; 82948; 83036; 83540; 83605; 83630; 83690; 83735; 84100; 84132; 84244; 84466; 84484; 84550; 85025; 85045; 85610; 85730; 86850; 86900; 86920; 87040; 87045; 87086; 87177; 87186; 87324; 87449; 93005; 93306; 94640; 94664; 94760; 94799; 96361; 99251; 99284; J0360; J1170; J1940; J2270; J2405; J2543; J2920; J3360; J3411; J3420; J3475; J3480; J3486; J7030; J7042; J7050; P9016; Q9967

== ENCOUNTER 2022-09-09 15:31 | Inpatient (IN) | payer MEDICARE, OTHER ==
[~2022-09-09] VITALS: Ht 170.2 cm; Wt 72.6 kg
[~2022-09-09 15:31] MED LIST changes: +ALDACTONE25 MG PO; +ASPIRIN81 MG PO; +CARAFATE1 GM PO; +FERROUS SULFAT324 MG PO; +GABAPENTIN100 MG PO; +LASIX20 MG PO; +LISINOPRIL20 MG PO; +PANTOPRAZOLE SO40 MG PO; +SYMBICORT 16010.2 GM INH; +ZOLOFT50 MG PO
[2022-09-09] MEDS ORDERED: Morphine 4mg INJECTION 4 MG/ML INJ IV STA (15:59)
[2022-09-09] MEDS ORDERED: ONDANSETRON HCL INJ 2MG/ML 2ML 2 MG/ML VIAL IV STA (15:59)
[2022-09-09 16:11] LABS: BASOPHILS # (AUTO) 0.1 (0.0-0.1); BASOPHILS % 0.5 % (0.0-1.0); EOSINOPHILS % 0.2 % (0.0-6.0); HEMATOCRIT 28.6 % (34.2-44.1); HEMOGLOBIN 8.5 g/dL (12.0-16.0); LYMPHOCYTES # (AUTO) 0.9 (1.0-3.2); LYMPHOCYTES % 9.4 % (18.0-39.1); MEAN CORPUSCULAR HEMOGLOBIN 32.6 pg (28-32); MEAN CORPUSCULAR HGB CONC 29.7 g/dL (31-35); MEAN CORPUSCULAR VOLUME 109.6 fL (81-99); MONOCYTES # (AUTO) 0.7 (0.2-0.8); MONOCYTES % 7.4 % (4.4-11.3); NEUTROPHILS # (AUTO) 8.1 (2.1-6.9); PLATELET COUNT 382 x10e3/uL (140-360); RED BLOOD COUNT 2.61 x10e6/uL (3.6-5.1); RED CELL DISTRIBUTION WIDTH 23.9 % (11.7-14.4)
[2022-09-09 16:17] LABS: INR 1.03; PARTIAL THROMBOPLASTIN TIME 28.1 seconds (23.8-35.5); PROTHROMBIN TIME 13.7 seconds (11.9-14.5)
[2022-09-09 16:24] LABS: ALBUMIN 2.9 g/dL (3.5-5.0); ALBUMIN/GLOBULIN RATIO 0.9 (0.8-2.0); CALCIUM 7.8 mg/dL (8.4-10.2); CREATININE, SERUM 0.62 mg/dL (0.57-1.11); MAGNESIUM 1.8 MG/DL (1.3-2.1)
[2022-09-09 16:31] LABS: CREATINE KINASE MB 1.6 ng/mL (0-5.0)
[2022-09-09] MEDS ORDERED: MULTIVITAMINS- 12 INJECTION 10 ML, FOLIC ACID MDV 1 MG, THIAMINE HCL INJ 100 MG in SODI... IV ONE (16:45)
[2022-09-09] MEDS ORDERED: POTASSIUM CHLORIDE 20 MEQ TAB CR PO ONE (17:00)
[2022-09-09] MEDS: POTASSIUM CHLORIDE 10MEQ/100ML 100 ML IV SCH ×3 (17:15→19:00)
[2022-09-09] MEDS ORDERED: ONDANSETRON HCL INJ 2MG/ML 2ML 2 MG/ML VIAL IV PRN (17:45)
[2022-09-09 18:39] LABS: CLARITY,URINE CLEAR (CLEAR); COLOR,URINE YELLOW (YELLOW); LEUKOCYTE ESTERASE ,URINE NEGATIVE (NEGATIVE); NITRITE,URINE NEGATIVE (NEGATIVE)
[2022-09-09 18:40] LABS: KETONES,URINE NEGATIVE (NEGATIVE); PROTEIN,URINE DIPSTICK 1+ (NEGATIVE); RBC,URINE 21-50 /HPF (0-5); URINE UROBILINOGEN 1 mg/dL (0.2 - 1); WBC,URINE (MAN) 0-5 /HPF (0-5)
[2022-09-09 18:41] LABS: BACTERIA,URINE MANY /HPF; EPITHELIAL CELLS,URINE FEW /LPF
[2022-09-09 20:00] VITALS: BP 169/94
[2022-09-09 20:15] VITALS: BP 158/85
[2022-09-09 20:17] VITALS: BP 158/85
[2022-09-09 20:20] VITALS: BP 158/85
[2022-09-09] MEDS: KCL 20MEQ/.9 SOD CHL 1,000 ML IV SCH (20:35)
[2022-09-09] MEDS: ALBUTEROL/IPRATROPIUM 3 ML NEB NEB PRN (21:53)
[2022-09-09] MEDS: Morphine 4mg INJECTION 4 MG/ML INJ IV PRN (21:56)
[2022-09-09] MEDS: LORAZEPAM INJ 2 MG/ML VIAL IV PRN (23:41)
[2022-09-09] MEDS: MEROPENEM 1 GM in SODIUM CHLORIDE 0.9% 100 ML IV SCH (23:41)
[2022-09-09] MEDS ORDERED: POTASSIUM CHLORIDE 10MEQ/100ML 100 ML IV SCH (23:45)
[2022-09-10] VITALS: BP 150/70
[2022-09-10] MEDS: ALBUTEROL/IPRATROPIUM 3 ML NEB NEB PRN ×3 (03:45→19:28)
[2022-09-10] MEDS: Morphine 4mg INJECTION 4 MG/ML INJ IV PRN ×5 (03:57→21:25)
[2022-09-10 04:00] VITALS: BP 138/71
[2022-09-10] MEDS: MEROPENEM 1 GM in SODIUM CHLORIDE 0.9% 100 ML IV SCH ×3 (05:55→16:31)
[2022-09-10] MEDS: KCL 20MEQ/.9 SOD CHL 1,000 ML IV SCH (05:59)
[2022-09-10 06:19] LABS: BASOPHILS % 0.6 % (0.0-1.0); EOSINOPHILS # (AUTO) 0.1 (0.0-0.4); EOSINOPHILS % 1.4 % (0.0-6.0); HEMATOCRIT 23.2 % (34.2-44.1); HEMOGLOBIN 7.1 g/dL (12.0-16.0); LYMPHOCYTES # (AUTO) 0.7 (1.0-3.2); LYMPHOCYTES % 9.8 % (18.0-39.1); MEAN CORPUSCULAR HEMOGLOBIN 32.7 pg (28-32); MEAN CORPUSCULAR HGB CONC 30.6 g/dL (31-35); MEAN CORPUSCULAR VOLUME 106.9 fL (81-99); MONOCYTES # (AUTO) 0.6 (0.2-0.8); MONOCYTES % 8.8 % (4.4-11.3); NEUTROPHILS # (AUTO) 5.8 (2.1-6.9); PLATELET COUNT 233 x10e3/uL (140-360); RED BLOOD COUNT 2.17 x10e6/uL (3.6-5.1); RED CELL DISTRIBUTION WIDTH 24.9 % (11.7-14.4)
[2022-09-10 07:06] LABS: ALBUMIN 2.3 g/dL (3.5-5.0); ALBUMIN/GLOBULIN RATIO 0.9 (0.8-2.0); ANION GAP 12.4 mmol/L (8-16); CALCIUM 7.1 mg/dL (8.4-10.2); CREATININE, SERUM 0.61 mg/dL (0.57-1.11); MAGNESIUM 1.6 MG/DL (1.3-2.1)
[2022-09-10 07:08] LABS: POTASSIUM 2.4 mmol/L (3.5-5.1)
[2022-09-10] MEDS ORDERED: POTASSIUM CHLORIDE 20MEQ/100ML 100 ML IV ONE (07:15)
[2022-09-10 07:19] LABS: ANISOCYTOSIS MODERATE; HYPOCHROMASIA MODERATE; PLATELET ESTIMATE ADEQUATE; PLATELET MORPHOLOGY COMMENT NORMAL; RBC MORPHOLOGY COMMENT ABNORMAL
[2022-09-10 07:29] LABS: CREATINE KINASE MB 1.4 ng/mL (0-5.0)
[2022-09-10] MEDS ORDERED: MAGNESIUM SULFATE 2GM/50ML 50 ML IV ONE (07:30)
[2022-09-10 08:18] VITALS: BP 151/94
[2022-09-10] MEDS ORDERED: SODIUM CHLORIDE 0.9% 250ML 250 ML IV ONE (09:15)
[2022-09-10 11:30] VITALS: BP 150/87
[2022-09-10] MEDS ORDERED: ACETAMINOPHEN 325 MG TAB PO PRN (16:00)
[2022-09-10] MEDS ORDERED: POLYETHYLENE GLYCOL 3350 17 GM PACK PO PRN (16:00)
[2022-09-10] MEDS ORDERED: METOPROLOL TARTRATE INJ 1 MG/ML VIAL IV PRN (16:00)
[2022-09-10 16:07] LABS: CREATINE KINASE MB 1.9 ng/mL (0-5.0)
[2022-09-10 16:18] VITALS: BP 148/79
[2022-09-10] MEDS: DOCUSATE SODIUM 100 MG CAP PO SCH (16:31)
[2022-09-10] MEDS: FAMOTIDINE 20 MG TAB PO SCH (16:31)
[2022-09-10 20:00] VITALS: BP 133/63
[2022-09-10] MEDS ORDERED: SODIUM CHLORIDE 0.9% 250ML 250 ML ONE (21:23)
[2022-09-11] VITALS (8 sets, daily range): BP systolic 116–168; BP diastolic 73–87
[2022-09-11] MEDS: ALBUTEROL/IPRATROPIUM 3 ML NEB NEB PRN ×4 (01:20→18:55)
[2022-09-11] MEDS ORDERED: SODIUM CHLORIDE 0.9% 250ML 250 ML ONE (01:32)
[2022-09-11] MEDS: Morphine 4mg INJECTION 4 MG/ML INJ IV PRN ×5 (01:45→19:52)
[2022-09-11] MEDS: MEROPENEM 1 GM in SODIUM CHLORIDE 0.9% 100 ML IV SCH ×3 (02:00→17:16)
[2022-09-11 07:36] LABS: BASOPHILS # (AUTO) 0.1 (0.0-0.1); BASOPHILS % 0.7 % (0.0-1.0); EOSINOPHILS # (AUTO) 0.3 (0.0-0.4); EOSINOPHILS % 2.8 % (0.0-6.0); HEMATOCRIT 34.3 % (34.2-44.1); HEMOGLOBIN 10.5 g/dL (12.0-16.0); LYMPHOCYTES # (AUTO) 0.8 (1.0-3.2); LYMPHOCYTES % 9.2 % (18.0-39.1); MEAN CORPUSCULAR HEMOGLOBIN 31.5 pg (28-32); MEAN CORPUSCULAR HGB CONC 30.6 g/dL (31-35); MONOCYTES # (AUTO) 0.8 (0.2-0.8); MONOCYTES % 8.8 % (4.4-11.3); NEUTROPHILS % 77.6 % (38.7-80.0); PLATELET COUNT 237 x10e3/uL (140-360); RED BLOOD COUNT 3.33 x10e6/uL (3.6-5.1); RED CELL DISTRIBUTION WIDTH 23.5 % (11.7-14.4)
[2022-09-11 07:54] LABS: ALBUMIN 2.5 g/dL (3.5-5.0); ALBUMIN/GLOBULIN RATIO 0.9 (0.8-2.0); ANION GAP 12.1 mmol/L (8-16); CALCIUM 7.5 mg/dL (8.4-10.2); CREATININE, SERUM 0.54 mg/dL (0.57-1.11); MAGNESIUM 1.8 MG/DL (1.3-2.1); PHOSPHORUS 1.9 MG/DL (2.3-4.7); POTASSIUM 3.1 mmol/L (3.5-5.1)
[2022-09-11] MEDS: DOCUSATE SODIUM 100 MG CAP PO SCH ×2 (08:41→17:16)
[2022-09-11] MEDS: FAMOTIDINE 20 MG TAB PO SCH ×2 (08:41→17:16)
[2022-09-11 09:34] LABS: PLATELET ESTIMATE ADEQUATE; PLATELET MORPHOLOGY COMMENT NORMAL; RBC MORPHOLOGY COMMENT NORMAL
[2022-09-11] MEDS ORDERED: POTASSIUM CHLORIDE 20 MEQ TAB CR PO ONE (10:45)
[2022-09-11] MEDS ORDERED: POTASSIUM PHOSPHATE 15 MM in SODIUM CHLORIDE 0.9% 250ML 250 ML IV SCH (11:00)
[2022-09-11] MEDS ORDERED: ALBUTEROL SULF 0.083% NEB SOLN 3 ML NEB INH PRN (20:00)
[2022-09-11] MEDS ORDERED: SERTRALINE HCL 50 MG TAB PO ONE (20:00)
[2022-09-11] MEDS: LORAZEPAM INJ 2 MG/ML VIAL IV PRN (21:12)
[2022-09-11] MEDS ORDERED: METOPROLOL TARTRATE INJ 1 MG/ML VIAL IV PRN (23:55)
[2022-09-12] VITALS (8 sets, daily range): BP systolic 124–157; BP diastolic 74–85
[2022-09-12] MEDS: ALBUTEROL/IPRATROPIUM 3 ML NEB NEB PRN ×3 (01:10→19:05)
[2022-09-12] MEDS: Morphine 4mg INJECTION 4 MG/ML INJ IV PRN ×5 (04:57→20:27)
[2022-09-12 05:34] LABS: BASOPHILS # (AUTO) 0.1 (0.0-0.1); BASOPHILS % 0.7 % (0.0-1.0); EOSINOPHILS # (AUTO) 0.2 (0.0-0.4); EOSINOPHILS % 2.6 % (0.0-6.0); HEMATOCRIT 35.3 % (34.2-44.1); HEMOGLOBIN 10.7 g/dL (12.0-16.0); LYMPHOCYTES % 11.1 % (18.0-39.1); MEAN CORPUSCULAR HEMOGLOBIN 31.8 pg (28-32); MEAN CORPUSCULAR HGB CONC 30.3 g/dL (31-35); MEAN CORPUSCULAR VOLUME 105.1 fL (81-99); MONOCYTES # (AUTO) 0.8 (0.2-0.8); MONOCYTES % 8.8 % (4.4-11.3); NEUTROPHILS # (AUTO) 6.5 (2.1-6.9); NEUTROPHILS % 76.1 % (38.7-80.0); PLATELET COUNT 276 x10e3/uL (140-360); RED BLOOD COUNT 3.36 x10e6/uL (3.6-5.1); RED CELL DISTRIBUTION WIDTH 23.5 % (11.7-14.4)
[2022-09-12 05:51] LABS: ANION GAP 11.8 mmol/L (8-16); CALCIUM 7.9 mg/dL (8.4-10.2); CREATININE, SERUM 0.53 mg/dL (0.57-1.11); MAGNESIUM 1.9 MG/DL (1.3-2.1); PHOSPHORUS 2.3 MG/DL (2.3-4.7); POTASSIUM 3.8 mmol/L (3.5-5.1)
[2022-09-12] MEDS: BUDESONIDE/FORMOTEROL 160/4.5MCG INHALER INH SCH ×2 (06:25→19:05)
[2022-09-12 06:38] LABS: ANISOCYTOSIS MODERATE; HYPOCHROMASIA MODERATE; PLATELET ESTIMATE ADEQUATE; PLATELET MORPHOLOGY COMMENT NORMAL; POLYCHROMASIA FEW; RBC MORPHOLOGY COMMENT ABNORMAL
[2022-09-12] MEDS: ASPIRIN 81 MG CHEW TAB PO SCH (09:14)
[2022-09-12] MEDS: DOCUSATE SODIUM 100 MG CAP PO SCH ×2 (09:14→17:44)
[2022-09-12] MEDS: FAMOTIDINE 20 MG TAB PO SCH ×2 (09:15→17:44)
[2022-09-12] MEDS: SERTRALINE HCL 50 MG TAB PO SCH (09:15)
[2022-09-12] MEDS: LISINOPRIL 20 MG TAB PO SCH (09:15)
[2022-09-13] VITALS (9 sets, daily range): BP systolic 139–175; BP diastolic 76–96
[2022-09-13] MEDS: ALBUTEROL/IPRATROPIUM 3 ML NEB NEB PRN ×3 (00:15→14:05)
[2022-09-13] MEDS: BUDESONIDE/FORMOTEROL 160/4.5MCG INHALER INH SCH ×2 (06:50→19:10)
[2022-09-13] MEDS: Morphine 4mg INJECTION 4 MG/ML INJ IV PRN ×4 (08:22→20:29)
[2022-09-13] MEDS: DOCUSATE SODIUM 100 MG CAP PO SCH ×2 (08:22→16:31)
[2022-09-13] MEDS: ASPIRIN 81 MG CHEW TAB PO SCH (08:22)
[2022-09-13] MEDS: SERTRALINE HCL 50 MG TAB PO SCH (08:23)
[2022-09-13] MEDS: LISINOPRIL 20 MG TAB PO SCH (08:23)
[2022-09-13] MEDS: FAMOTIDINE 20 MG TAB PO SCH ×2 (08:23→16:31)
[2022-09-13] MEDS ORDERED: ONDANSETRON HCL 4 MG ORAL DISINTEGRATING TAB PO PRN (09:45)
[2022-09-13] MEDS: LORAZEPAM INJ 2 MG/ML VIAL IV PRN ×2 (13:57→21:27)
[2022-09-14] VITALS (9 sets, daily range): BP systolic 142–185; BP diastolic 80–94
[2022-09-14] MEDS: Morphine 4mg INJECTION 4 MG/ML INJ IV PRN ×7 (00:37→22:16)
[2022-09-14] MEDS: ALBUTEROL/IPRATROPIUM 3 ML NEB NEB PRN ×4 (01:05→19:05)
[2022-09-14] MEDS: BUDESONIDE/FORMOTEROL 160/4.5MCG INHALER INH SCH ×2 (07:09→19:05)
[2022-09-14] MEDS: LORAZEPAM INJ 2 MG/ML VIAL IV PRN ×3 (07:56→23:12)
[2022-09-14] MEDS: FAMOTIDINE 20 MG TAB PO SCH ×2 (07:57→16:05)
[2022-09-14] MEDS: SERTRALINE HCL 50 MG TAB PO SCH (07:57)
[2022-09-14] MEDS: ASPIRIN 81 MG CHEW TAB PO SCH (07:57)
[2022-09-14] MEDS: LISINOPRIL 20 MG TAB PO SCH (07:57)
[2022-09-14] MEDS: DOCUSATE SODIUM 100 MG CAP PO SCH ×2 (07:57→16:05)
[2022-09-14] MEDS: AMLODIPINE BESYLATE 5 MG TAB PO SCH (12:40)
[2022-09-15] MEDS: Morphine 4mg INJECTION 4 MG/ML INJ IV PRN ×2 (02:08→05:57)
[2022-09-15 04:00] VITALS: BP 142/86
[2022-09-15] MEDS: LORAZEPAM INJ 2 MG/ML VIAL IV PRN (04:21)
[2022-09-15] MEDS: ALBUTEROL/IPRATROPIUM 3 ML NEB NEB PRN (06:00)
[2022-09-15] MEDS: BUDESONIDE/FORMOTEROL 160/4.5MCG INHALER INH SCH (06:09)
[2022-09-15 07:46] VITALS: BP 140/90
[2022-09-15 08:33] VITALS: BP 140/90
[2022-09-15] MEDS ORDERED: HYDROCODONE/APAP 10MG-325MG TAB PO STA (08:33)
[2022-09-15] MEDS ORDERED: HYDROCODONE/APAP 7.5MG-325MG 1 EA TAB PO PRN (08:45)
[2022-09-15] MEDS ORDERED: ACETAMINOPHEN325 M1 PO (08:46)
[2022-09-15] MEDS ORDERED: ONDANSETRON ODT4 MG PO (08:46)
[2022-09-15] MEDS ORDERED: Docusate Sodium PO (08:46)
[2022-09-15] MEDS: DOCUSATE SODIUM 100 MG CAP PO SCH (09:00)
[2022-09-15] MEDS: AMLODIPINE BESYLATE 5 MG TAB PO SCH (09:08)
[2022-09-15] MEDS: FAMOTIDINE 20 MG TAB PO SCH (09:09)
[2022-09-15] MEDS: SERTRALINE HCL 50 MG TAB PO SCH (09:09)
[2022-09-15] MEDS: LISINOPRIL 20 MG TAB PO SCH (09:09)
[2022-09-15] MEDS: ASPIRIN 81 MG CHEW TAB PO SCH (09:09)
[2022-09-15] MEDS ORDERED: CEFUROXIME250 MG PO (09:46)
== END 2022-09-15 11:25 | disposition home health service (06) | DRG 536 ==
LOC: ER 15:40 → ERHOLD 17:52 → MED/SURG3 19:35
PROVIDERS: ADMIT Internal Medicine; ATTEND Internal Medicine
DX: S32.591A Other specified fracture of right pubis, initial encounter for closed fracture (principal); N39.0 Urinary tract infection, site not specified; Z16.11 Resistance to penicillins; S32.592A Other specified fracture of left pubis, initial encounter for closed fracture; W01.0XXA Fall on same level from slipping, tripping and stumbling without subsequent striking against object, initial encounter; E87.6 Hypokalemia; I10 Essential (primary) hypertension; F41.9 Anxiety disorder, unspecified; I25.2 Old myocardial infarction; I73.9 Peripheral vascular disease, unspecified; Z91.81 History of falling; J44.9 Chronic obstructive pulmonary disease, unspecified; E83.42 Hypomagnesemia; K57.90 Diverticulosis of intestine, part unspecified, without perforation or abscess without bleeding; I25.10 Atherosclerotic heart disease of native coronary artery without angina pectoris; Z99.81 Dependence on supplemental oxygen; Z20.822 Contact with and (suspected) exposure to COVID-19; Z95.5 Presence of coronary angioplasty implant and graft; E83.39 Other disorders of phosphorus metabolism; B96.20 Unspecified Escherichia coli [E. coli] as the cause of diseases classified elsewhere
CPT/HCPCS: 36415; 70450; 72131; 72192; 80048; 80053; 81001; 82550; 82553; 83735; 84100; 84443; 84484; 85025; 85610; 85730; 86850; 86900; 86920; 87086; 87186; 93005; 94664; 94799; 96361; 99252; 99285; J0696; J2060; J2185; J2270; J2405; J3411; J3475; J3480; J7030; J7050; P9016